=== PATIENT | female | born 1985 | race Caucasian/White ===

== ENCOUNTER → 2021-07-23 11:45 | Outpatient (CLI) | payer OTHER, SELFPAY | PROVIDERS: Visit Provider Student in an Organized Health Care Education/Training Program | DX: Z20.822 Contact with and (suspected) exposure to COVID-19 (principal) | CPT/HCPCS: C9803; U0003; U0005 ==

== ENCOUNTER 2022-08-19 12:24 | Emergency (ER) | payer OTHER, SELFPAY ==
[2022-08-19 13:40] VITALS: BP 149/88; PULSE 88; RESP 20; TEMP 36.8; O2SAT 100; BMI 33.8
--- NOTE | 2022-08-19 13:47 | EXP.UTC ---
Discharge Plan Disposition Patient Disposition: Home, Self-Care Condition: Good Prescriptions Prescriptions: New clindamycin HCl 300 mg capsule 300 mg PO Q8H Qty: 30 0RF Referrals Follow up/Referrals: Provider,Referral, [Primary Care Provider] - See instructions Activity Restrictions/Add. Instructions Additional Instructions/Restrictions: Follow up with your primary care physician if you keep having the feeling when you move your eyes certain ways. This sound like vertigo, but please follow up and make sure it gets better. Take tylenol for pain or fever. Take the medications as directed. Follow up with your regular doctor. GO TO THE ER FOR ANY WORSENING SYMPTOMS Clinical Impressions Clinical Impression: Pharyngitis, Vertigo Stand Alone Forms Stand Alone Forms: Work/School Release Instructions Patient Instructions: DI for Pharyngitis/Tonsillopharyngitis -- Child Discharge ED Provider: Jarvis Montiel [facility] General Stated complaint: Sore throat w/blisters Time Seen by Provider: 08/19/22 13:47 History of Present Illness Provider Complaint: She states that for the past 3 weeks she has been having a weird feeling and hearing a swoosh sound with certain head movements and eye movements. She has had a sore throat for the past 2 days. She had a kidney transplant last November. 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 Related Data Previous Rx's Medication Instructions Recorded clindamycin HCl 300 mg capsule 300 mg PO Q8H #30 caps 08/19/22 Allergies Allergy/AdvReac Type Severity Reaction Status Date / Time Penicillins Allergy Intermediate RED MAN Verified 08/19/22 14:18 SYNDROME vancomycin Allergy Intermediate RED MAN Verified 08/19/22 14:18 SYNDROME sulfamethoxazole Allergy Mild REACTION Verified 08/19/22 14:18 [From Bactrim] OTHER MEDS trimethoprim [From Bactrim] Allergy Mild REACTION Verified 08/19/22 14:18 OTHER MEDS [facility] Disclaimer: The information contained in this section may have been updated after the patient was seen, as this information can be updated by other users. Social History Smoking Status: Never smoker alcohol intake: never current occupational status: employed Travel in the last 8 weeks: None ROS Obtained: Yes All systems reviewed & no additional complaints except as documented Constitutional Constitutional: Reports chills and Reports fever(s) Eyes Eyes: Denies eye discharge ENT Ears, Nose, Mouth, and Throat: Reports as per HPI Cardiovascular Cardiovascular: Denies chest pain Respiratory Respiratory: Denies chest congestion and Reports cough Gastrointestinal Gastrointestingal: Reports nausea; Denies abdominal pain, constipation, cramping, diarrhea or vomiting Musculoskeletal Musculoskeletal: Denies arthralgias Integumentary/Breasts Skin/Breast: Denies rash Neurologic Neurologic: Denies paresthesias Physical Exam General General appearance: alert and in no apparent distress Head Head exam: atraumatic, normocephalic and normal inspection Eye Eye exam: Present normal appearance, PERRL and EOMI ENT ENT exam: Present mucous membranes moist and normal external ear exam Expanded ENT Exam TM/Canal exam: Bilateral TM: erythema and bulging Nose exam: Absent sinus tenderness Mouth exam: Present normal external inspection; Absent drooling Teeth exam: Present normal inspection Throat exam: Present tonsillar erythema, tonsillomegaly and tonsillar exudate Neck Neck exam: Present normal inspection, full ROM and trachea midline; Absent tenderness, meningismus or lymphadenopathy Chest Chest inspection: Present normal inspection and symmetric chest wall rise; Absent tenderness Respiratory Respiratory exam: Present normal lung sounds bilaterally; Absent respiratory distress, wheezes or stridor Cardiovascular Cardiovascular
--- NOTE | 2022-08-19 14:06 | ECG_ITS ---
APPROVED REPORT Exam: Resting ECG HR:88 bpm ECG Measurements Heart Rate 88 AXES ME 156 P 53 QRSd 91 QRS 37 QT 357 T 58 QTc 402 Conclusion SINUS RHYTHM POSSIBLE LEFT ATRIAL ENLARGEMENT [-0.1mV P-WAVE IN V1/V2] BORDERLINE ECG UNCONFIRMED REPORT Electronically signed by : Hossein Frausto MD 08/19/2022 20:17:40
[2022-08-19 14:16] LABS: UTC Strep Screen (Rapid) Negative (Negative)
[2022-08-19 14:45] VITALS: BP 149/98; PULSE 88; RESP 20; TEMP 36.8; O2SAT 100
== END 2022-08-19 14:45 | disposition home or self-care (01) ==
PROVIDERS: Emergency Provider Nurse Practitioner Family
DX: J02.9 Acute pharyngitis, unspecified (principal); R42 Dizziness and giddiness
CPT/HCPCS: 87880; 93005; 99213; G0463

== ENCOUNTER 2025-06-14 15:24 | Outpatient (CLI) | payer OTHER, SELFPAY ==
--- OUTSIDE RECORDS SUMMARY | 2025-05-11 10:40 | XMS_ITS | Encounter Summary ---
Author Organization [facility] Address [address] [place] [address] Care Team Providers Care Recreation Activities Coordinator Name Role Phone Terry Ag MD Unavailable Lee Ellis MD Unavailable [phone] Cici Wiley Unavailable Unavailable Aleksandra Mensah RN Unavailable Unavailable Reason for Visit * Reason Comments Diabetes * Consultation (Routine) - Closed Specialty Diagnoses / Procedures Referred By Contkarmen t Referred To Contact Diagnoses Type 2 diabetes mellitus with hyperglycemia, with long-term current use of insulin Preeti Gomez MD [address] [address] Phone: tel: fax: Referral ID Status Reason Start Date Expiration Date Visits Re quested Visits Authorized [id number] Closed 01/16/2025 07/18/2026 1 1 Encounter Details Date Type Department Care Team (Late st Contact Info) Description 05/11/2025 11:40 AM EDT Office Visit [facility] [address] [place] [id number] Preeti Gomez MD [address] [address] Type 2 diabetes mellitus with hyperglycemia, with long-term current use of insulin (Primary Dx) Social History Tobacco Use Types Packs/Day Years Used Date Smoking Tobacco: Never Passive Smoke Exposure: Never Smokeless Tobacco: Never Alcohol Use Standard Drinks/Week Comments Never 0 (1 standard drink = 0.6 oz pur e alcohol) Alcoholic Drinks/day: Alcohol Humiliation, Afraid, Rape, and Kick questionnair e Answer Date Recorded Within the last year, have y ou been afraid of your partner or ex-partner? No 09/15/2024 Within the last year, have y ou been humiliated or emotionally abused in other ways by your partner or ex-partner? No Within the last year, have y ou been kicked, hit, slapped, or otherwise physically hurt by your partner or ex-partner? No 09/15/2024 Within the last year, have y ou been raped or forced to have any kind of sexual activity by your partner or ex-partner? No 09/15/2024 Social Connection and Isolation Panel Answer Date Recorded In a typical week, how many times do you talk on the phone with family, friends, or neighbors? Three times a week 09/16/19 How often do you get togethe r with friends or relatives? Twice a week 09/15/2024 How often do you attend chur or episcopalian services? Never 09/15/2024 Do you belong to any clubs o r organizations such as episcopalian groups, unions, fraternal or athletic groups, or school groups? No 09/15/2024 How often do you attend meet ings of the clubs or organizations you belong to? Never 09/15/2024 Are you , , di vorced, , never , or living with a partner? Living with partner 09/15/2024 AUDIT-C Answer Date Recorded Q1: How often do you have a drink containing alcohol? Never 09/15/2024 Q2: How many drinks containi ng alcohol do you have on a typical day when you are drinking? Patient does not drink Q3: How often do you have si x or more drinks on one occasion? Never 09/15/2024 Overall Financial Resource Strain (CARDIA) Answe r Date Recorded How hard is it for you to pa y for the very basics like food, housing, medical care, and heating? Not hard at all 09/15/2024 PHQ-2 Answer Date Recorded Patient Health Questionnaire-2 Score 0 10/05/2024 [facility] - Occupational Stress Questionnaire Answer Date Recorded Do you feel stress - tense, restless, nervous, or anxious, or unable to sleep at night because your mind is troubled all the time - these days? Only a little 09/15/2024 Exercise Vital Sign Answer Date Recorde d On average, how many days pe r week do you engage in moderate to strenuous exercise (like a brisk walk)? 3 days 09/15/2024 On average, how many minutes do you engage in exercise at this level? 40 min 09/15/2024 Hunger Vital Sign Answer Date Recorded Within the past 12 months, y ou worried that your food would run out before you got the money to buy more. Never true 09/16/19 25 Within the past 12 months, t he food you bought just didn't last and you didn't have money to get more. Never true 09/15/2024 PRAPARE - Transportation Answer Date Re corded In the past 12 months, has l ack of transportation kept you from medical appointments or from getting medications? No 12/2024 In the past 12 months, has l ack of transportation kept you from meetings, work, or from getting things needed for daily living? No 09/15/2024 Housing Stability Vital Sign Answer Feliciano e Recorded In the last 12 months, was t here a time when you were not able to pay the mortgage or rent on time? No 04/14/2024 In the last 12 months, how many places have you lived? 1 04/14/2024 In the last 12 months, was t here a time when you did not have a steady place to sleep or slept in a fdc (including now)? No 04/14/2024 [place] Depression Scale Answer Date Recorded [place] Depression Scale Total 0 11/03/2024 The thought of harming myself has occurred to me . Never 11/03/2024 PHQ-9 Answer Date Recorded Patient Health Questionnaire-9 Score 0 09/15/2024 Housing Stability Vital Sign Answer Feliciano e Recorded In the last 12 months, was t here a time when you were not able to pay the mortgage or rent on time? No 09/15/2024 In the past 12 months, how m any times have you moved where you were living? 0 09/15/2024 At any time in the past 12 m [facility], were you homeless or living in a fdc (including now)? No 09/15/2024 Utilities Answer Date Recorded In the past 12 months has th e electric, gas, oil, or water company threatened to shut off services in your home? No 09/15/2024 Education Answer Date Recorded What is the highest level of school you have completed or the highest degree you have received? Some college, no degree 04/14/2024 Comments No Sex and Gender Information Value Date Recorded Sex Assigned at Female 07/25/2021 7:30 AM EST Legal Sex Female 7:46 PM EDT Gender Identity Female 07/25/2021 7:30 AM EST Sexual Orientation Not on file documented as of this encounter Last Filed Vital Signs Vital Sign Reading Time Taken Comments Blood Pressure 124/84 05/11/2025 11:21 AM EDT Pulse 80 05/11/2025 11:21 AM EDT Temperature - - Respiratory Rate - - Oxygen Saturation - - Inhaled Oxygen Concentration - - Weight 90.9 kg (200 lb 6.4 oz) 05/11/2025 11:21 AM EDT Height 157.5 cm (5' 2 ) 05/11/2025 11:21 AM EDT Body Mass Index 36.65 05/11/2025 11:21 AM EDT documented in this encounter Miscellaneous Notes * Progress Notes - Jessica Carrasco MBBS - 05/11/2025 11:40 AM EDT Images from the original note were not included. Chief complaint: T2DM f/u HPI Guerline Merchant is a 37 yo woman with PMH of HTN, T2DM, ESRD s/p kidney transplant 11/2021 (now on tacrolimus, mycophenolate, previously on prednisone) and anxiety who presents today for follow up of her T2DM. Patient was last seen in the clinic on 01/16/25. T2DM A1c today is 6.6 (from 5.7 on 01/2025) Current regimen: Lantus 20 units BID- reports occasional lows after midnight Lispro 18-22 units before meals CGM: Dexcom Compliance- good Hypoglycemic episodes- significantly improved since last time. She does have compression lows overnight . Her BG is normal when she cross checks with fingerstick. Complications: Has hx of kidney transplant; Denies neuropathy, retinopathy Eye exam: UTD , reports no diabetic retinopathy ROS- negative except for as mentioned above. Past Medical History: Diagnosis Date Abnormal Pap smear of cervix End stage renal disease Essential (primary) hypertension Hypertension Kidney disease Kidney transplant recipient 2006 2021 Methicillin resistant Staphylococcus aureus infection, unspecified site MRSA (methicillin resistant Staphylococcus aureus) Personal history of other diseases of the digestive system History of gastroesophageal reflux (GERD) Personal history of other mental and behavioral disorders History of anxiety Personal history of urinary (tract) infections History of kidney infection Polyneuropathy, unspecified Neuropathy Recurrent and persistent hematuria with other morphologic changes IgA nephropathy Spontaneous 2023 Type 2 diabetes mellitus 2023 Past Surgical History: Procedure Laterality Date ANKLE SURGERY N/A 2013 Ankle surgery from [facility] APPENDECTOMY N/A 2013 Appendectomy from [facility] AV FISTULA PLACEMENT Left 2017 AV fistula placement from [facility] SECTION, LOW TRANSVERSE N/A 2010 section from [facility] CT GUIDED ASP RENAL CYST HISTORICAL Right 2019 DIALYSIS FISTULA CREATION Left 08/13/2018 Dr. Ellis NEPHRECTOMY 05/22/2020 Dr. Terry Ag - Transplant Nephrectomy NOSE SURGERY N/A 2009 Nose Surgery from [facility] PERIPHERALLY INSERTED CENTRAL CATHETER INSERTION N/A Central Iv Line Type Picc from [facility] SINUS SURGERY N/A 2010 Sinus surgery from [facility] TRANSPLANTATION RENAL Right 2006 Renal transplant from [facility] TRANSPLANTATION RENAL Left 11/2021 Renal Transplant from [facility] Family History Problem Relation Name Age of Onset Endometriosis Mother Hypertension Mother Migraines Mother Hyperlipidemia Mother Thyroid disease Mother Autoimmune disease Sister Hearing loss Sister Endometriosis Sister Diabetes Brother Hypertension Brother Deafness Brother Diabetes Maternal Grandmother Hypertension Maternal Grandmother Objective: Visit Vitals BP 124/84 Pulse 80 Ht 1.575 m (5' 2 ) Wt 90.9 kg (200 lb 6.4 oz) BMI 36.65 kg/m?? OB Status Having periods Smoking Status Never BSA 1.99 m?? Physical Exam Vitals reviewed. Constitutional: General: She is not in acute distress. Appearance: She is not ill-appearing, toxic-appearing or diaphoretic. HENT: Head: Normocephalic and atraumatic. Mouth/Throat: Mouth: Mucous membranes are moist. Cardiovascular: Rate and Rhythm: Normal rate and regular rhythm. Heart sounds: Normal heart sounds. Pulmonary: Effort: Pulmonary effort is normal. No respiratory distress. Breath sounds: Normal breath sounds. Abdominal: Palpations: Abdomen is soft. Musculoskeletal: Right lower leg: No edema. Left lower leg: No edema. Skin: General: Skin is warm and dry. Coloration: Skin is not jaundiced or pale. Neurological: Mental Status: She is alert. Psychiatric: Mood and Affect: Mood normal. Behavior: Behavior normal. Recent Labs: Lab Results Component Value Date HGBA1C 6.6 05/11/2025 Lab Results Component Value Date GLUCOSE 124 (H) 02/23/2024 CALCIUM 9.4 02/23/2024 NA 138 02/23/2024 K 4.2 02/23/2024 CO2 26 02/23/2024 CL 102 02/23/2024 BUN 14 02/23/2024 CREATININE 0.96 02/23/2024 Lab Results Component Value Date CHOL 156 12/23/2018 CHOL 217 07/08/2018 CHOL 191 04/26/2018 Lab Results Component Value Date HDL 24 12/23/2018 HDL 27 07/08/2018 HDL 26 04/26/2018 Lab Results Component Value Date LDLCALC 76 12/23/2018 LDLCALC Not calculated when TRIG. >400 mg/dL 07/08/2018 LDLCALC 107 04/26/2018 Lab Results Component Value Date TRIG 278 12/23/2018 TRIG 501 07/08/2018 TRIG 291 04/26/2018 Lab Results Component Value Date CRATIO 12/23/2018 6.5 Total Cholesterol/HDL Ratio Reference Range: Desirable: <5.0 Borderline high: 5.0 to 6.0 High: >6.0 [facility] 07/08/2018 8.0 Total Cholesterol/HDL Ratio Reference Range: Desirable: <5.0 Borderline high: 5.0 to 6.0 High: >6.0 [facility] 04/26/2018 7.3 Total Cholesterol/HDL Ratio Reference Range: Desirable: <5.0 Borderline high: 5.0 to 6.0 High: >6.0 Lab Results Component Value Date MICROALBUR 1.61 02/23/2024 CGM review and assessment: Interpretation: Numbers within goal. Assessment and Plan T2DM controlled - A1c today 6.6 - at goal - posttransplantation hyperglycemia, on/off prednisone therapy (today reports off for about 2 years) - Current regimen: Lantus 20 units qAM & 20 units qPM + Lispro 18-22 with meals. -no further true lows. Experiencing compression lows overnight. PLAN: - Regimen: c/w Lantus to 20 units bid . Continue mealtime lispro 18-22 units with meals. -discussed taking the meal time insulin atleast 10-15 mins prior to eating to avoid post prandial lows. - Pt continues to use CGM to test BG 4+ times daily and uses CGM to adjust insulin doses. - Annual DM labs are UTD except lipid panel which she will get it done along with her transplant labs next month. - UTD eye exam as of December 2024. HTN - BP 124/84 today, at goal -PLAN: - Continue labetalol; will follow with transplant doctors Kidney transplantation 12/01 - Continues daily immunosuppressants (including prednisone) - Follows with Dr. Sebastian PLAN: - Continue to follow with nephrology and transplant clinic RTC in 3 months Jessica Carrasco, PGY-4 Division of Endocrinology, Diabetes and Metabolism [facility] Cosigned by Preeti Gomez MD at 05/12/2025 5:47 PM EDT Associated attestation - Preeti Gomez MD - 05/12/2025 5:47 PM EDT I saw and evaluated the patient. I discussed the case with the resident/fellow and agree with the findings and plan as documented. documented in this encounter Plan of Treatment Upcoming Encounters Date Type Department Care Team (Late st Contact Info) Description 09/14/2025 12:20 PM EST Office Visit [facility] [address] [place] [address] Preeti Gomez MD [address] [facility] [address] [place] [address] documented as of this encounter Procedures Procedure Name Priority Date/Time Associated Diagnosis Comments POCT GLYCOSYLATED HEMOGLOBIN (HGB A1C) Routine 05/11/2025 11:39 AM EDT Type 2 diabetes mellitus with hyperglycemia, with long-term current use of insulin documented in this encounter Results * (ABNORMAL) POCT glycosylated hemoglobin (Hb A1C) (05/11/2025 11:39 AM EDT) POCT Hemoglobin A1C 6.6 <5.7% Non-Diabet ic % [facility] Kit Lot Number [id number] [facility] Kit Expiration Date 03/08 [facility] Blood Venous blood specimen / Unknown 05/11/2025 11:39 AM EDT Preeti Gomez MD POINT OF CARE TEST ENTER/EDIT ORDERABLES Final Result [facility] [address] [place] [address] documented in this encounter Visit Diagnoses Diagnosis Type 2 diabetes mellitus with hyperglycemia, with long-term current use of insulin- Primary documented in this encounter Additional Health Concerns Infection Onset Date Last Indicated Resolved Time 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 Assessment Noted Time PHQ-9 Depression Total Score: 0 09/16/19 25 1:23 PM EST A fall risk assessment has been complete d for the patient 08/24/2024 1:09 PM EST A Body Mass Index follow-up plan has been documented for the patient 05/12/2025 5:47 PM EDT documented as of this encounter Care Teams Recreation Activities Coordinator Relationship Specialty Start Date End Date Terry Ag MD [address] [place] [address] Transplant Physician Transplant Surgery 12/02/20 Lee Ellis MD [address] [place] [phone] Transplant Physician Transplant Surgery 12/02/20 Cici Wiley [id number] Surgical Navigator Transplant 12/02/20 Aleksandra Mensah RN [facility] [address] [place] [id number] Surgical Navigator Transplant Surgery 02/15/21 documented as of this encounter
--- OUTSIDE RECORDS SUMMARY | 2025-05-15 10:32 | XMS_ITS | Encounter Summary ---
Author Organization [facility] Address [address] [place] [address] Care Team Providers Care Textile Broker Name Role Phone Terry Ag MD Unavailable Lee Ellis MD Unavailable [phone] Cici Wiley Unavailable Unavailable Aleksandra Mensah RN Unavailable Unavailable Reason for Referral * Imaging (Routine) - Closed Specialty Diagnoses / Procedures Referred By Ahmet iglesias Referred To Contact Radiology Diagnoses ESRD on hemodialysis (CMS/HCC) Procedures IR Angiogram ArterioVenous Shunt Wayne Steven MD [address] [place] [address] Phone: tel: fax: Referral ID Status Reason Start Date Expiration Date Visits Re quested Visits Authorized [id number] Closed 02/07/2025 08/09/2026 1 1 Reason for Visit * Imaging (Routine) - Closed Specialty Diagnoses / Procedures Referred By Ahmet iglesias Referred To Contact Radiology Diagnoses ESRD on hemodialysis ([facility]/HCC) Procedures IR Angiogram ArterioVenous Shunt Wayne Steven MD [address] [place] [address] Phone: tel: fax: Referral ID Status Reason Start Date Expiration Date Visits Re quested Visits Authorized [id number] Closed 02/07/2025 08/09/2026 1 1 Encounter Details Date Type Department Care Team (Late st Contact Info) Description 05/15/2025 10:32 AM EST - 05/15/2025 11:59 PM [facility] Hospital Encounter PAV A Interventional Radiology [address] [place] [address] Loreto Pemberton, RN CH-VASCULAR & INTERVENTIONAL RADIOLOGY None ESRD on hemodialysis (CMS/HCC) Discharge Disposition: Home or Self Care Social History Tobacco Use Types Packs/Day Years [...] week 09/15/2024 How often do you attend [facility] or adventism services? Never 09/15/2024 Do you belong to any clubs o r organizations such as quaker groups, unions, fraternal or athletic groups, or [...] Recorded Patient Health Questionnaire-2 Score 0 10/05/2024 [facility] - Occupational Stress Questionnaire Answer Date Recorded [...] place to sleep or slept in a skilled nursing (including now)? No 04/14/2024 [place] Depression Scale Answer Date Recorded [place] Depression Scale Total 0 11/03/2024 The thought [...] any time in the past 12 m [facility], were you homeless or living in a skilled nursing (including now)? No 09/15/2024 Utilities Answer Date [...] Sign Reading Time Taken Comments Blood Pressure 131/65 05/15/2025 2:00 PM EST Pulse 83 05/15/2025 2:15 PM EST Temperature 36.3 C (97.3 F) 05/15/2025 1:07 PM EST Respiratory Rate 24 05/15/2025 2:15 PM EST Oxygen Saturation 96% 05/15/2025 2:15 PM EST Inhaled Oxygen Concentration - - Weight 91.9 kg (202 lb 9.6 oz) 05/15/2025 10:45 AM EST Height 154.9 cm (5' 1 ) 05/15/2025 10:45 AM EST Body Mass Index 38.28 05/15/2025 10:45 AM EST documented in this encounter Functional Status * Calculated C-SSRS Risk Score (Lifetime/Recent) Answer Date of Assessment Author No Risk Indicated 05/15/2025 10:45 AM EST Loreto Cabrales RN * Question Answer Date of Assessment Author 1. Wish to be (Past 1 Month) No 05/15/2025 10:45 AM EST Loreto Pemberton RN 2. Non-Specific Active Suici odell Thoughts (Past 1 Month) No 05/15/2025 10:45 AM EST Addi Pemberton RN 6. Suicidal Behavior (Lifetime) No 5 10:45 AM EST Loreto Pemberton RN documented as of this encounter Discharge Instructions * Discharge Instructions* Loreto Pemberton RN - 05/15/2025 2:10 PM EST *Interventional Radiology* (IR) Questions/Concerns & Appointments: If there are questions or concerns after discharge please call: [facility] Inter[facility]iology Clinic at [phone] Thursday - Thursday 8:00 AM to 4:30 PM After hours, weekends, and holidays please call [phone] and ask for the Interventional Radiology provider/Resident on-call Intervention Radiology Appointments: If you need to reschedule a procedure, please call our Schedulers at [phone], option [phone]. If you need to schedule or reschedule a clinic appointment, please call [phone]. [facility] Vascular and Interventional Radiology Clinic [address], [address] [place] [id number] documented in this encounter Medications at Time of Discharge acetaminophen (Tylenol Extra Strength) 500 MG tablet Take both tablets by mouth about one hour prior to your procedure. 2 tablet 5 acetone, urine, test strip 1 strip if needed for high blood sugar. 25 each 4 ALBUTEROL IN Inhale 1-2 puffs if needed. azaTHIOprine (Imuran) 100 MG tablet Take 1 tablet by mouth daily. 3 Continuous Glucose Sensor (Dexcom G7 Sensor) miscIndications:Typ e 2 diabetes mellitus with hyperglycemia, with long-term current use of insulin 1 each every 10 (ten) days. 9 each 3 4 doxycycline (Vibramycin) 100 MG capsuleIndications: Need for antibiotic prophylaxis for surgical procedure Bring this medication to your appointment, do not take it until you have spoken to your doctor. 2 capsule 5 glucose (Trueplus Glucose) 4 g chewable tablet Chew 4 tablets (16 g) if needed for low blood sugar. 50 tablet 12 4 Glucose Blood (Blood Glucose Test) strip Use as back up to CGM as needed. Use to check BG levels 3 times a day. 300 strip 5 4 insulin lispro (Admelog, HumaLOG) 100 UNIT/ML injection penIndications:Type 2 diabetes mellitus with hyperglycemia, with long-term current use of insulin Inject 15-17 units before each meal 3 times per day MDD 60 30 mL 3 5 Insulin Pen Needle (ReliOn Pen Nakina) 32G X 4 MM misc USE 4 TIMES DAILY DIRECTED TO INJECT INSULIN 300 each 5 labetalol (Normodyne) 100 MG tablet Take 1 tablet by mouth twice daily 180 tablet 5 Lancets misc Use to check blood sugar 3 times daily 300 each 3 4 LORazepam (Ativan) 0.5 MG tablet Bring this medication with you to your appointment. Do not take them until you have spoken with the doctor that day. 2 tablet 5 Magnesium Cl-Calcium Carbonate 71.5-119 MG tablet delayed-release Take 142 mg by mouth 1 (one) time each day. 4 miSOPROStol (Cytotec) 200 MCG tablet 1 tablet. omeprazole (PriLOSEC) [address] capsule Take 1 capsule (40 mg) by mouth daily. 0 ondansetron (Zofran) 4 MG tablet Take one tablet about an hour before the procedure. 2 tablet 5 ondansetron ODT (Zofran-ODT) 4 MG disintegrating tablet Take 1 tablet (4 mg) by mouth every 8 (eight) hours if needed for nausea or vomiting. 10 tablet 4 oxyCODONE (Roxicodone) 5 MG immediate release tablet Please bring this medication to your appointment, do not take until you have spoken with your doctor that day. 1 tablet 5 Iaydlzdf-Crk-Yo-FA ( 1 + IRON PO) Take by mouth. tacrolimus (Prograf) 1 MG capsule Take 3 capsules by mouth 2 times a day. 2 insulin glargine (Lantus SoloStar) 100 UNIT/ML injection penIndications:Type 2 diabetes mellitus with hyperglycemia, with long-term current use of insulin INJECT 15 UNITS SUBCUTANEOUSLY TWICE DAILY 15 mL 1 5 05/31/20 25 insulin glargine-yfgn 100 UNIT/ML injection pen INJECT 10 UNITS SUBCUTANEOUSLY IN THE MORNING AND 30 IN THE EVENING . APPOINTMENT REQUIRED FOR FUTURE REFILLS 5 05/31/20 25 documented as of this encounter Miscellaneous Notes * Progress Notes - Loreto Pemberton RN - 05/15/2025 2:31 PM EST Written discharge instructions reviewed with pt and family. Opportunity provided for family and pt to ask and have questions answered to their understanding. VU of plan of home care and in agreement. VSS, NAD noted, VU of care after discharge and denies questions or concerns. Discharged to private vehicle ambulatory; accompanied by RN x 1; all personal belongings with pt, bay void of any patient belongings upon exit. Loreto Pemberton RN 05/15/2025 2:31 PM * Nan Young - Loreto Pemberton RN - 05/15/2025 2:10 PM EST Images from the original note were not included. [id number] Fistulogram and Angioplasty of Your AV Fistula A fistulogram is a type of X-ray. It uses X-ray dye (contrast) to look inside your arteriovenous (AV) fistula vascular access for hemodialysis. It?s done to check the blood flow and look for any narrowing (stenosis) in the vein of your fistula. If a narrowing is found, then an angioplasty can be done at the same time. This procedure makes the vein wider using a small, inflatable balloon. Fistulogram and angioplasty are both outpatient procedures. This means you?ll go home the same day. Why is a fistula and angioplasty done? This procedure may be advised if you have any signs that your AV fistula isn?t working well due to a narrowed blood vessel. This can include: ? Reduced blood flow. ? Little or no bruit, the sound of blood flowing in your AV fistula. ? Changes in the thrill, the pulse at the fistula site. ? The arm with the fistula gets swollen. ? Bleeding from your access after your dialysis session. ? During dialysis sessions, the dialysis machine alarms go off because of access flow issues. Before the procedure ? Follow any directions you?re given for not eating or drinking before the procedure. ? Tell your doctor about all of the medicines you take. This includes prescription and uukx-eyo-tlaghis medicines, vitamins, minerals, and supplements. ? Tell the doctor if you have allergies to any medicines or to X-ray dye. ? Tell the doctor if you?re or think you may be . ? Arrange for someone to drive you home after the procedure. During the procedure In general, here?s what you can expect during a fistulogram and angioplasty: 1. You?ll lie down on an X-ray table. 2. You may be given medicine to relax you (sedatives) in the arm opposite your fistula. 3. The doctor injects some medicine (local anesthesia) into the fistula arm to numb the area. 4. The doctor inserts a long, thin tube (catheter) into your access. 5. Contrast dye is added to the catheter while X-ray images are taken. The X-ray images let the doctor see how the dye flows. They can see if there?s any narrowing. 6. If there?s no narrowing, then the catheter is removed. Pressure is applied to the insertion siteuntil any bleeding stops. If an angioplasty is needed: 1. If a blood vessel is narrowed, an angioplasty will be done at the same time. 2. Using a thin guide wire, the provider inserts a small, inflatable balloon into the catheter. 3. The doctor inflates the balloon into the narrow part of the blood vessel. This makes the vessel wider so that more blood can flow through. You may feel some mild discomfort. 4. When the procedure is done, both the wire and balloon are removed. 5. The doctor injects contrast dye into the catheter to check that blood flow is improved. 6. The catheter is removed. 7. Pressure is applied to the insertion site until any bleeding stops. 8. You may have 1 or 2 stitches at the insertion site. These will be removed at your next dialysis session. After the procedure ? You?ll be moved to a recovery area. Your heart rate, blood pressure, and fistula will be checked. ? If no angioplasty was done, you?ll go home right away. ? If you had an angioplasty, you?ll stay and be watched for a few hours. ? Make sure someone is available to drive you home. ? Once you are home, relax for the rest of the day. ? Don?t lift anything heavy or do any strenuous activities for 24 hours. ? Drink fluids to help flush the X-ray dye from your body. ? Follow any other directions from your doctor. Risks of fistulogram and angioplasty All procedures have some risk. Possible risks of fistulogram and angioplasty are: ? A blood vessel that ruptures. ? A blood vessel that spasms. ? Bleeding or infection at the insertion site. ? Problems because of X-ray dye, such as an allergic reaction. ? The blood vessel becomes narrowed again. When to contact your doctor Contact your doctor if any of these occur after the procedure: ? You have signs of infection, such as redness, swelling, warmth, or fluid leaking from the insertion site. ? You can?t feel your thrill (the pulse at the fistula site). ? Your thrill feels very weak. Last Reviewed Date: 2024 00:00:00 ?? [id number] [employer]. All rights reserved. This information is not intended as a substitute for professional medical care. Always follow your healthcare professional's instructions. * Post-Procedure Note - Wayne Steven MD - 05/15/2025 12:00 PM EST Vascular and Interventional Radiology Brief Postprocedure Note Attending: Maurizio DU Enrichment Director: none Pre-operative Diagnosis: central stenosis, AV fistula. Post-operative Diagnosis: unchanged,. Type of Anesthesia: Conscious Sedation Description of Findings: see PACS Technical/Surgical Procedures Used: see PACS Specimen Obtained: No Complications: None Estimated Blood Loss: none Procedure Events Event Event Time Sedation Start 05/15/2025 12:19 PM Sedation Stop 05/15/2025 12:40 PM See detailed result report with images in PACS. The patient tolerated the procedure well without incident or complication and is in stable condition. * Pre-Procedure Note - Ayden VegasDO - 05/15/2025 12:00 PM EST Images from the original note were not included. INTERVENTIONAL RADIOLOGY SEDATION PRE-PROCEDURAL ASSESSMENT AND PLAN OF CARE Indication for procedure: The encounter diagnosis was ESRD on hemodialysis (CMS/[facility]ER[facility]). Planned Procedure: LUE AV fistulogram with possible intervention Relevant past medical history: None Previous problems with surgery, anesthesia or sedation: No Previous family history or problems with anesthesia or sedation: No History of tobacco use, alcohol use, or substance abuse: Tobacco Use History[1], Social History Substance and Sexual Activity Alcohol Use Never Comment: Alcoholic Drinks/day: Alcohol , Social History Substance and Sexual Activity Drug Use Never Comment: Drug use: Does not use illicit drugs Height and Weight: There were no vitals taken for this visit. Allergies to medication: Mycophenolate, Penicillins, Sulfamethoxazole- trimethoprim, and Vancomycin Current medications: Current Medications[2] Relevant Labs: Lab Results Component Value Date CREATININE 0.96 02/23/2024 EGFR 77.8 02/23/2024 INR 1.0 09/29/2024 PREGTESTUR Positive (A) 04/14/2024 Planned Sedation/Anesthesia: Moderate Airway assessment: normal Mallampati Score: II (hard and soft palate, upper portion of tonsils anduvula visible) ASA: ASA 2 - Patient with mild systemic disease with no functional limitations Directed physical examination: There were no vitals filed for this visit. General: resting comfortably, in no apparent distress HEENT: normocephalic, atraumatic, PERRL, conjunctiva clear, oropharynx unremarkable Cardiovascular: regular rate and rhythm. Respiratory: without signs of respiratory distress. Abdomen: soft, nontender, nondistended, without masses. Extremities: no gross deformities, intact range of motion, without cyanosis or edema. LUE brachiocephalic fistula with palpable thrill and mild bounding pulsation. Neuro: normal reactivity for age. Benefits, risks and alternatives of procedure and planned sedation have been discussed with the patient and/or their warehouse representative. All questions answered and they agree to proceed. [1] Social History Tobacco Use Smoking Status Never Passive exposure: Never Smokeless Tobacco Never [2] Current Outpatient Medications Medication Sig Dispense Refill acetaminophen (Tylenol Extra Strength) 500 MG tablet Take both tablets by mouth about one hour prior to your procedure. 2 tablet 0 acetone, urine, test strip 1 strip if needed for high blood sugar. 25 each 0 ALBUTEROL IN Inhale 1-2 puffs if needed. azaTHIOprine (Imuran) 100 MG tablet Take 1 tablet (100 mg) by mouth daily. Continuous Glucose Sensor ([employer] G7 Sensor) misc 1 each every 10 (ten) days. 9 each 3 doxycycline (Vibramycin) 100 MG capsule Bring this medication to your appointment, do not take it until you have spoken to your doctor. 2 capsule 0 glucose (Trueplus Glucose) 4 g chewable tablet Chew 4 tablets (16 g) if needed for low blood sugar.50 tablet 12 Glucose Blood (Blood Glucose Test) strip Use as back up to CGM as needed. Use to check BG levels 3 times a day. 300 strip 5 insulin glargine (Lantus SoloStar) 100 UNIT/ML injection pen INJECT 15 UNITS SUBCUTANEOUSLY TWICE DAILY 15 mL 1 insulin glargine-yfgn 100 UNIT/ML injection pen INJECT 10 UNITS SUBCUTANEOUSLY IN THE MORNING AND 30 IN THE EVENING . APPOINTMENT REQUIRED FOR FUTURE REFILLS insulin lispro (Admelog, HumaLOG) 100 UNIT/ML injection pen Inject 15-17 units before each meal 3 times per day MDD 60 30 mL 3 Insulin Pen Needle (ReliOn Pen Nakina) 32G X 4 MM misc USE 4 TIMES DAILY DIRECTED TO INJECT INSULIN 300 each 0 labetalol (Normodyne) 100 MG tablet Take 1 tablet by mouth twice daily 180 tablet 0 Lancets misc Use to check blood sugar 3 times daily 300 each 3 LORazepam (Ativan) 0.5 MG tablet Bring this medication with you to your appointment. Do not take them until you have spoken with the doctor that day. 2 tablet 0 Magnesium Cl-Calcium Carbonate 71.5-119 MG tablet delayed-release Take 142 mg by mouth 1 (one) timeeach day. miSOPROStol (Cytotec) 200 MCG tablet 1 tablet. (Patient not taking: Reported on 05/11/2025) omeprazole (PriLOSEC) [address] capsule Take 1 capsule (40 mg) by mouth daily. ondansetron (Zofran) 4 MG tablet Take one tablet about an hour before the procedure. (Patient not taking: Reported on 05/11/2025) 2 tablet 0 ondansetron ODT (Zofran-ODT) 4 MG disintegrating tablet Take 1 tablet (4 mg) by mouth every 8 (eight) hours if needed for nausea or vomiting. (Patient not taking: Reported on 05/11/2025) 10 tablet 0 oxyCODONE (Roxicodone) 5 MG immediate release tablet Please bring this medication to your appointment, do not take until you have spoken with your doctor that day. (Patient not taking: Reported on 05/11/2025) 1 tablet 0 PARoxetine (Paxil) 20 MG tablet Take 1 tablet (20 mg total) by mouth 1 (one) time each day. as directed 30 tablet 11 Javgtjon-Sxk-Ag-FA ( 1 + IRON PO) Take by mouth. (Patient not taking: Reported on 05/11/2025) tacrolimus (Prograf) 1 MG capsule Take 3 capsules (3 mg) by mouth 2 (two) times a day. Current Facility-Administered Medications Medication Dose Route Frequency Provider Last Rate Last Admin sodium chloride 0.9 % flush 10 mL 10 mL Intravenous q12h Ayden Vegas DO And sodium chloride 0.9 % flush 10 mL 10 mL Intravenous PRN Ayden Vegas DO * H&P - Ayden Vegas DO - 05/15/2025 12:00 PM EST Images from the original note were not included. Subjective Chief complaint LUE central venous stenosis History Of Present Illness Guerline Merchant is a 40 y.o. female presenting for LUE brachiocephalic AV fistulogram with possible angioplasty/intervention. She has a PMHx of HTN, anxiety, left upper extremity brachiocephalic AV fistula (August 2018), ESRD s/p DDKT (November 2021). Pt presented 10/17 for LUE swelling which had central venous stenosis s/p av fistulogram w/ ballon angioplastyx2 (10/2024 and 01/2025). Medical/Surgical/Social/Family History I have reviewed and updated the patient history. Travel History Relevant International Travel History: Travel Screening Question Response Have you been in contact with someone who was sick? No / Unsure Do you have any of the following new or worsening symptoms? None of these Have you traveled internationally or domestically in the last month? No Travel History Travel since 04/14/25 No documented travel since 04/14/25 Relevant Domestic Travel History: N/A Immunizations Not reviewed Allergies Mycophenolate, Penicillins, Sulfamethoxazole-trimethoprim, and Vancomycin Medications Current Medications[1] Objective Review of Systems A complete ROS was obtained. All were negative except as noted in HPI. Physical Exam General: resting comfortably, in no apparent distress HEENT: normocephalic, atraumatic, PERRL, conjunctiva clear, oropharynx unremarkable Cardiovascular: regular rate and rhythm. Respiratory: without signs of respiratory distress. Abdomen: soft, nontender, nondistended, without masses. Extremities: no gross deformities, intact range of motion, without cyanosis or edema. LUE brachiocephalic fistula with palpable thrill and mild bounding pulsation. Neuro: normal reactivity for age. Last Recorded Vitals unknown if currently . Results Review I have reviewed the latest lab and imaging results. Assessment & Plan ESRD on hemodialysis ([facility]) 40F presenting for LUE brachiocephalic AV fistulogram with possible intervention. Consent obtained.Okay to proceed as planned [1] Current Outpatient Medications Medication Sig Dispense Refill acetaminophen (Tylenol Extra Strength) 500 MG tablet Take both tablets by mouth about one hour prior to your procedure. 2 tablet 0 acetone, urine, test strip 1 strip if needed for high blood sugar. 25 each 0 ALBUTEROL IN Inhale 1-2 puffs if needed. azaTHIOprine (Imuran) 100 MG tablet Take 1 tablet (100 mg) by mouth daily. Continuous Glucose Sensor ([employer] G7 Sensor) misc 1 each every 10 (ten) days. 9 each 3 doxycycline (Vibramycin) 100 MG capsule Bring this medication to your appointment, do not take it until you have spoken to your doctor. 2 capsule 0 glucose (Trueplus Glucose) 4 g chewable tablet Chew 4 tablets (16 g) if needed for low blood sugar.50 tablet 12 Glucose Blood (Blood Glucose Test) strip Use as back up to CGM as needed. Use to check BG levels 3 times a day. 300 strip 5 insulin glargine (Lantus SoloStar) 100 UNIT/ML injection pen INJECT 15 UNITS SUBCUTANEOUSLY TWICE DAILY 15 mL 1 insulin glargine-yfgn 100 UNIT/ML injection pen INJECT 10 UNITS SUBCUTANEOUSLY IN THE MORNING AND 30 IN THE EVENING . APPOINTMENT REQUIRED FOR FUTURE REFILLS insulin lispro (Admelog, HumaLOG) 100 UNIT/ML injection pen Inject 15-17 units before each meal 3 times per day MDD 60 30 mL 3 Insulin Pen Needle (ReliOn Pen Nakina) 32G X 4 MM misc USE 4 TIMES DAILY DIRECTED TO INJECT INSULIN 300 each 0 labetalol (Normodyne) 100 MG tablet Take 1 tablet by mouth twice daily 180 tablet 0 Lancets misc Use to check blood sugar 3 times daily 300 each 3 LORazepam (Ativan) 0.5 MG tablet Bring this medication with you to your appointment. Do not take them until you have spoken with the doctor that day. 2 tablet 0 Magnesium Cl-Calcium Carbonate 71.5-119 MG tablet delayed-release Take 142 mg by mouth 1 (one) timeeach day. miSOPROStol (Cytotec) 200 MCG tablet 1 tablet. (Patient not taking: Reported on 05/11/2025) omeprazole (PriLOSEC) [address] capsule Take 1 capsule (40 mg) by mouth daily. ondansetron (Zofran) 4 MG tablet Take one tablet about an hour before the procedure. (Patient not taking: Reported on 05/11/2025) 2 tablet 0 ondansetron ODT (Zofran-ODT) 4 MG disintegrating tablet Take 1 tablet (4 mg) by mouth every 8 (eight) hours if needed for nausea or vomiting. (Patient not taking: Reported on 05/11/2025) 10 tablet 0 oxyCODONE (Roxicodone) 5 MG immediate release tablet Please bring this medication to your appointment, do not take until you have spoken with your doctor that day. (Patient not taking: Reported on 05/11/2025) 1 tablet 0 PARoxetine (Paxil) 20 MG tablet Take 1 tablet (20 mg total) by mouth 1 (one) time each day. as directed 30 tablet 11 Fhkxobdc-Uvm-Vj-FA ( 1 + IRON PO) Take by mouth. (Patient not taking: Reported on 05/11/2025) tacrolimus (Prograf) 1 MG capsule Take 3 capsules (3 mg) by mouth 2 (two) times a day. No current facility-administered medications for this encounter. Cosigned by Wayne Steven MD at 05/15/2025 11:22 AM EST Associated attestation - Wayne Steven MD - 05/15/2025 11:22 AM EST Signature only. documented in this encounter Plan of Treatment Upcoming Encounters Date Type Department Care Team (Late st Contact Info) Description 09/14/2025 12:20 PM EST Office Visit [facility] Endocrinology [address] [place] [id number] Preeti Gomez MD [address] [phone] documented as of this encounter Procedures Procedure Name Priority Date/Time Associated Diagnosis Comments IR ANGIOGRAM ARTERIOVENOUS SHUNT Routine 05/15/2025 12:52 PM EST ESRD on hemodialysis ([facility]) POCT , URINE Routine 05/15/2025 10:54 AM EST documented in this encounter Results * IR Angiogram ArterioVenous Shunt (05/15/2025 12:52 PM EST) Anatomical Region Laterality Modality X-Ray Angiograph y Impressions 05/15/2025 1:39 PM EST Successful left upper extremity brachiocephalic AV fistulogram and successful sequential balloon angioplasty of moderate grade central venous stenosis with resolution. PLAN: Post sedation recovery. In absence of interval symptomology or change in dialysis status, no need for follow-up AV fistulogram at this time. Discussed with patient. CRITICAL RESULT: No. COMMUNICATION: Per this written report. Drafted by Wayne Steven MD on 05/15/2025 1:31 PM Final report signed by Wayne Steven MD on 05/15/2025 1:39 PM Narrative 05/15/2025 1:39 PM EST CLINICAL INDICATION: 40-year-old female PMHx HTN, anxiety, left upper extremity brachiocephalic AV fistula (August 2018), ESRD s/p DDKT (November 2021) presenting for AV fistulogram; not currently on dialysis; intermittent left hand paresthesias in the past, none as of last visit; presents for left upper extremity AV fistulogram; prior angioplasty short segment moderate grade central venous stenosis brachiocephalic vein. TECHNIQUE: Commodities Manager: Wayne Steven MD Rad Dose: 283 mGy Medications: IV conscious sedation with continuous physiologic monitoring provided by a qualified healthcare professional using Versed 1.5 mg IV and Fentanyl 75 mcg IV. 1% Lidocaine SQ 10 mL . Duration of Conscious Sedation: Time out: 1219 close out: 1240 Physical examination of the fistula demonstrates a a patent left upper extremity brachiocephalic AV fistula with palpable thrill, moderately pulsatile on exam. Grossly symmetric to contralateral extremity; overlying skin unremarkable and intact. Procedure: After discussion of risks and benefits, informed written consent was obtained. Appropriate time out was done to confirm patient identity and planned procedure . Strict hand hygiene protocol was observed. All personnel in the room were attired in surgical hat and mask. The operators were in surgical hat, mask, sterile gloves, and sterile gowns. The site was prepped with 2% chlorhexidine for cutaneous antisepsis followed by sterile barrier draping. Following administration of local anesthesia with 1% lidocaine the AV fistula was accessed using a 21 gauge micropuncture needle in the direction of the venous outflow. The needle was exchanged over a guide wire for a 4 Belarusian micropuncture sheath. An angiogram was performed from the site of puncture to the superior vena cava. Digital subtraction angiography was performed of the fistula from peripheral to central. 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 Remaining AV fistulogram unremarkable and patent. The micropuncture sheath was exchanged for an 8 Belarusian vascular sheath. Via the sheath, A 0.035 inch Glidewire wire was placed centrally and parked within the IVC. Sequential balloon angioplasty of the distal left brachiocephalic vein was performed sequentially utilizing a 14 mm x 4 cm balloon with incomplete response; subsequently balloon angioplasty was performed with use of a 16 mm x 4 cm angioplasty balloon. The balloon was then removed and a 12 mm x 6 mm drug coated balloon was inserted and insufflated to nominal pressure across the region of relieved stenosis. Balloon insufflation out for 2 minutes. Complete resolution of moderate grade left brachiocephalic central venous stenosis upon completion digital subtraction angiogram, representing technical success. Additionally the sheath was retracted and pressure was applied to the venous outflow of the fistula and digital subtraction angiogram performed. Patent arteriovenous anastomosis; no arteriovenous stenosis. Patent arterial outflow to the hand, findings suboptimally seen given large caliber cephalic venous outflow; no high-grade lesion at arteriovenous stenosis is demonstrated. The sheath was removed, and a z-string suture was placed at the site of puncture. The patient tolerated the procedure well, and there were no complications. Thrill is noted at the level of the venous limb at the end of the procedure; resolution of preprocedural AV fistula pulsatility. COMPARISON: Fluoroscopic guided AV fistulogram 01/23/2025. Fluoroscopic guided AV fistulogram 10/17/2024. FINDINGS: Moderate grade short segment central venous stenosis; left brachiocephalic vein. Complete resolution central venous stenosis following serial balloon angioplasty and completion angioplasty with drug coated balloon. COMPLICATION: No. Procedure Note Wayne Steven MD - 05/15/2025 CLINICAL INDICATION: 40-year-old female PMHx HTN, anxiety, left upper extremity brachiocephalicAV fistula (August 2018), ESRD s/p DDKT (November 2021) presenting for AVfistulogram; not currently on dialysis; intermittent left handparesthesias in the past, none as of last visit; presents for left upperextremity AV fistulogram; prior angioplasty short segment moderate gradecentral venous stenosis brachiocephalic vein. TECHNIQUE: Commodities Manager: Wayne Steven MD Rad Dose: 283 mGy Medications: IV conscious sedation with continuous physiologic monitoringprovided by a qualified healthcare professional using Versed 1.5 mg IV andFentanyl 75 mcg IV. 1% Lidocaine SQ 10 mL . Duration of Conscious Sedation: Time out: 1219 close out: 1240 Physical examination of the fistula demonstrates a a patent left upperextremity brachiocephalic AV fistula with palpable thrill, moderatelypulsatile on exam. Grossly symmetric to contralateral extremity; overlyingskin unremarkable and intact. Procedure: After discussion of risks and benefits, informed written consent wasobtained. Appropriate time out was done to confirm patient identity andplanned procedure . Strict hand hygiene protocol was observed. All personnel in the room wereattired in surgical hat and mask. The operators were in surgical hat,mask, sterile gloves, and sterile gowns. The site was prepped with 2%chlorhexidine for cutaneous antisepsis followed by sterile barrierdraping. Following administration of local anesthesia with 1% lidocaine the AVfistula was accessed using a 21 gauge micropuncture needle in thedirection of the venous outflow. The needle was exchanged over a guidewire for a 4 Belarusian micropuncture sheath. An angiogram was performed fromthe site of puncture to the superior vena cava. Digital subtractionangiography was performed of the fistula from peripheral to central. Ashort segment moderate grade stenosis of the left brachiocephalic vein wasagain demonstrated similar to prior examination. Remaining AV fistulogramunremarkable and patent. The micropuncture sheath was exchanged for an 8 Belarusian vascular sheath.Via the sheath, A 0.035 inch Glidewire wire was placed centrally andparked within the IVC. Sequential balloon angioplasty of the distal leftbrachiocephalic vein was performed sequentially utilizing a 14 mm x 4 cmballoon with incomplete response; subsequently balloon angioplasty wasperformed with use of a 16 mm x 4 cm angioplasty balloon. The balloon wasthen removed and a 12 mm x 6 mm drug coated balloon was inserted andinsufflated to nominal pressure across the region of relieved stenosis.Balloon insufflation out for 2 minutes. Complete resolution of moderategrade left brachiocephalic central venous stenosis upon completion digitalsubtraction angiogram, representing technical success. Additionally the sheath was retracted and pressure was applied to thevenous outflow of the fistula and digital subtraction angiogram performed.Patent arteriovenous anastomosis; no arteriovenous stenosis. Patentarterial outflow to the hand, findings suboptimally seen given largecaliber cephalic venous outflow; no high-grade lesion at arteriovenousstenosis is demonstrated. The sheath was removed, and a z-string suture was placed at the site ofpuncture. The patient tolerated the procedure well, and there were nocomplications. Thrill is noted at the level of the venous limb at the end of theprocedure; resolution of preprocedural AV fistula pulsatility. COMPARISON: Fluoroscopic guided AV fistulogram 01/23/2025. Fluoroscopic guided AV fistulogram 10/17/2024. FINDINGS: Moderate grade short segment central venous stenosis; left brachiocephalicvein. Complete resolution central venous stenosis following serial balloonangioplasty and completion angioplasty with drug coated balloon. COMPLICATION: No. IMPRESSION: Successful left upper extremity brachiocephalic AV fistulogram andsuccessful sequential balloon angioplasty of moderate grade central venousstenosis with resolution. PLAN: Post sedation recovery. In absence of interval symptomology or change in dialysis status, no needfor follow-up AV fistulogram at this time. Discussed with patient. CRITICAL RESULT: No. COMMUNICATION: Per this written report. Drafted by Wayne Steven MD on 05/15/2025 1:31 PM Final report signed by Wayne Steven MD on 05/15/2025 1:39 PM us Wayne Steven MD IMG IR PROCEDURES Final Resul t * POCT , URINE (05/15/2025 10:54 AM EST) POCT Test, Urine Negative Males and Non- Females: Negative 05/15/2025 11:01 AM EST [facility] Iron Melter ID [place] 05/15/2025 11:01 AM EST [facility] Device ID [id number] 05/15/2025 11:01 AM EST [facility] Urine Urine specimen obtained by clean catch procedure / Unknown 05/15/2025 10:54 AM EST 05/15/2025 11:01 AM EST us Loreto Pemberton RN LAB POINT OF CARE T EST DOCKED DEVICE UNSOLICITED RESULTS Final Result [facility] [address] [place] [address] documented in this encounter Visit Diagnoses Diagnosis ESRD on hemodialysis (CMS/FORMERLY [facility]) documented in this encounter Administered Medications Inactive Administered Medications - up to 3 most recent administrations Medication Order MAR Action Action Date Dose Rate Site fentaNYL (Sublimaze) injection Intravenous, As needed, Starting on 05/15/25 at 1219, Until 05/15/25 at 1235, Routine, Intraprocedure Given 05/15/2025 12:35 PM EST 25 mcg Given 05/15/2025 12:19 PM EST 50 mcg iohexol (OMNIPaque) 300 MG/ML injection - Pyxis Override Pull 1 dose, Starting on 05/15/25 at 1139, Until Thu05/15/25 at 1246 Given by Other 05/15/2025 12:46 PM EST 104 mL lidocaine (Xylocaine) 1 % injection Intradermal, As needed, Starting on Thu05/15/25 at 1221, Until Thu05/15/25 at 1244, Routine, Intraprocedure Given 05/15/2025 12:44 PM EST 5 mL Left Upper Arm Given 05/15/2025 12:21 PM EST 5 mL L eft Upper Arm midazolam (Versed) injection Intravenous, As needed, Starting on 05/15/25 at 1219, Until Thu05/15/25 at 1235, Routine, Intraprocedure Given 05/15/2025 12:35 PM EST 0.5 mg Given 05/15/2025 12:19 PM EST 1 mg documented in this encounter Additional Health Concerns Infection Onset Date Last Indicated Resolved Time 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 Assessment Noted Time PHQ-9 Depression Total Score: 0 09/16/19 1:23 PM EST A fall risk assessment has been complete d for the patient 08/24/2024 1:09 PM EST A Body Mass Index follow-up plan has been documented for the patient 05/15/2025 2:10 PM EST documented as of this encounter Care Teams Textile Broker Relationship Specialty Start Date End Date Terry Ag MD [address] [place] [address] Transplant Physician Transplant Surgery 12/02/20 Lee Ellis MD [address] [place] [address] Transplant Physician Transplant Surgery 12/02/20 Cici Wiley [id number] Surgical Navigator Transplant 12/02/20 Aleksandra Mensah RN [facility] [address] [place] [id number] Surgical Navigator Transplant Surgery 02/15/21 documented as of this encounter
--- NOTE | 2025-06-14 15:26 | MM_ITS ---
PROCEDURE INFORMATION: Exam: MG Bilateral Screening 3D Mammography Exam date and time: 06/14/2025 3:26 PM Age: 40 years old Clinical indication: Screening examination TECHNIQUE: Imaging protocol: Bilateral Screening tomosynthesis and 2D mammography including computer-aided detection (CAD) when performed. COMPARISON: No relevant prior studies available. FINDINGS: MAMMOGRAPHY: Breast composition: There are scattered areas of fibroglandular density. Mass: None. Architectural distortion: None. Calcifications: No suspicious calcifications. Asymmetric density: None. Skin thickening: None. Axillary adenopathy: None. IMPRESSION: No mammographic evidence of malignancy. Annual screening is recommended unless otherwise clinically indicated. ASSESSMENT: BI-RADS Category 1: Negative.
--- OUTSIDE RECORDS SUMMARY | 2025-06-14 15:26 | XMS_ITS | Encounter Summary ---
Author Organization Healthcare Address [address] [place] [address] Care Team Providers Care Associate Professor Of Forestry Name Role Phone Terry Ag MD Unavailable Lee Ellis MD Unavailable [phone] Cici Wiley Unavailable Unavailable Aleksandra Mensah RN Unavailable Unavailable Encounter Details Date Type Department Care Team (Latest Contact Info) Description 05/15/2025 Travel Social History Tobacco Use Types Packs/Day Years [...] 09/15/2024 How often do you attend chur ch or restoration services? Never 09/15/2024 Do you belong to any clubs o r organizations such as religion groups, unions, fraternal or athletic groups, or [...] Recorded Patient Health Questionnaire-2 Score 0 10/05/2024 [facility] - [...] place to sleep or slept in a half-way (including now)? No 04/14/2024 [place] Depression Scale Answer Date Recorded [place] Depression Scale Total 0 11/03/2024 The thought [...] any time in the past 12 m [facility], were you homeless or living in a half-way (including now)? No 09/15/2024 Utilities Answer Date [...] on file documented as of this encounter Functional Status * Calculated C-SSRS Risk Score (Lifetime/Recent) Answer Date of Assessment Author No Risk Indicated 05/15/2025 10:45 AM Loreto Rojas RN * Question Answer Date of Assessment Author 1. Wish to be (Past 1 Month) No 05/15/2025 10:45 AM Loreto Bang RN 2. Non-Specific Active Suici odell Thoughts (Past 1 Month) No 05/15/2025 10:45 AM Addi Bang RN 6. Suicidal Behavior (Lifetime) No 10:45 AM Loreto Bang RN documented as of this encounter Plan of Treatment Upcoming Encounters Date Type Department Care Team (Late st Contact Info) Description 09/14/2025 12:20 PM EST Office Visit [facility] Endocrinology [address] [place] [phone] Preeti Gomez MD [address] [facility] [address] [place] [address] documented as of this encounter Visit Diagnoses Not on filedocumented in this encounter Additional Health Concerns Infection [...] documented as of this encounter Care Teams Associate Professor Of Forestry Relationship Specialty Start Date End Date Terry Ag MD [address] [place] [address] Transplant Physician Transplant Surgery 12/02/20 Lee Ellis MD [address] [place] [address] Transplant Physician Transplant Surgery 12/02/20 Cici Wiley [id number] Surgical Navigator Transplant 12/02/20 Aleksandra Mensah RN [facility] [address] [place] [id number] Surgical Navigator Transplant Surgery 02/15/21 documented as of this encounter
--- OUTSIDE RECORDS SUMMARY | 2025-06-14 15:26 | XMS_ITS | Encounter Summary ---
Author Organization Healthcare Address [address] [place] [address] Care Team Providers Care Building Construction Ironworker Name Role Phone Terry Ag MD Unavailable Lee Ellis MD Unavailable [phone] Cici Wiley Unavailable Unavailable Aleksandra Mensah RN Unavailable Unavailable Reason for Visit * Reason Comments Med Refill Encounter Details Date Type Department Care Team (Late st Contact Info) Description 05/30/2025 Refill [facility] Endocrinology [address] [place] [address] Misbah Anand MD [address] [address] Type 2 diabetes mellitus with hyperglycemia, with long-term current use of insulin Social History Tobacco Use Types Packs/Day Years [...] How often do you attend chur or mu-ism services? Never 09/15/2024 Do you belong to any clubs o r organizations such as hindu groups, unions, fraternal or athletic groups, or [...] Recorded Patient Health Questionnaire-2 Score 0 10/05/2024 [facility] - Occupational Stress [...] place to sleep or slept in a [place] facility (including now)? No 04/14/2024 [place] Depression Scale Answer Date Recorded [place] Depression Scale Total 0 11/03/2024 The thought [...] in the past 12 m [facility], were you homeless or living in a [place] health [place] facility (including now)? No 09/15/2024 Utilities Answer Date [...] on file documented as of this encounter Miscellaneous Notes * Telephone Encounter - Ekaterina Hinson, RN - 05/30/2025 2:13 PM EST Refill request does not meet protocol. Sending to clinic for review. Additional info: Clarification required: Clinic note 05/11/2025 indicates dose is 20 units BID. documented in this encounter Plan of Treatment Upcoming Encounters Date Type Department Care Team (Late st Contact Info) Description 09/14/2025 12:20 PM EST Office Visit [facility] Endocrinology [address] [place] [phone] Preeti Gomez MD [address] [place] [phone] documented as of this encounter Visit Diagnoses Diagnosis Type 2 diabetes mellitus with hyperglycemia, with long-term current use of insulin documented in this encounter Additional Health Concerns [...] documented as of this encounter Care Teams Building Construction Ironworker Relationship Specialty Start Date End Date Terry Ag MD [address] [place] [phone] Transplant Physician Transplant Surgery 12/02/20 Lee Ellis MD [address] [place] [address] Transplant Physician Transplant Surgery 12/02/20 Cici Wiley [id number] Surgical Navigator Transplant 12/02/20 Aleksandra Mensah RN [facility] [address] [place] [id number] Surgical Navigator Transplant Surgery 02/15/21 documented as of this encounter
--- OUTSIDE RECORDS SUMMARY | 2025-06-14 15:26 | XMS_ITS | Clinical Summary ---
Author Organization [facility] Address [address] [place] [address] Care Team Providers Care Blood Collector Name Role Phone System, Provider Not In Primary Care Provider Un available Allergies Active Allergy Reactions Criticality Noted Date Comments Penicillins Hives Medium 05/21/2016 Sulfa Antibiotics Other (See Comments) Medium 05/21/20 16 ADVERSE KIDNEY RESPONSE Vancomycin 05/21/2016 Medications magnesium oxide (MAGOX) 400 (241.3 Mg) MG tablet tablet Take 400 mg by mouth Daily. Active PARoxetine (PAXIL) 10 MG tablet Take 10 mg by mouth Every Morning. Active pantoprazole (PROTONIX) 40 MG EC tablet 06/28/2018 Active PARoxetine (PAXIL) 20 MG tablet 06/27/2018 Active carvedilol (COREG) 25 MG tablet 09/05/2018 Active amLODIPine (NORVASC) 5 MG tablet 0 04/26/2019 Active calcitriol (ROCALTROL) 0.25 MCG capsule 0 04/26/2019 Active sevelamer (RENVELA) 800 MG tablet take 2 tablets with meals and 1 WITH SNACKS 0 04/28/2019 Active Active Problems No known active problems Family History Medical History Relation Name Comments No Known Problems Mother Relation Name Status Comments Mother Alive Social History Tobacco Use Types Packs/Day Years Used Date Smoking Tobacco: Never Alcohol Use Standard Drinks/Week Comments No 0 (1 standard drink = 0.6 oz pur e alcohol) AUDIT-C Answer Date Recorded Frequency of Alcohol Consumption Never 05/20/2019 Average Number of Drinks Not on file 019 Frequency of Binge Drinking Not on file 02/2019 Abuse Screen Answer Date Recorded Unsafe at Home or Work/School Not on file Feels Threatened by Someone? Not on file 05/2023 Does Anyone Keep You from Co ntacting Others or Doint Things Outside the Home? Not on file 04/22/2023 Physical Sign of Abuse Present Not on file 1 Housing Stability Answer Date Recorded Current Living Arrangements Not on file 04/12 Potentially Unsafe Housing Conditions Not on olive e 04/22/2023 Family and Community Support Answer Feliciano e Recorded Help with Day-to-Day Activities Not on file 04/22/2023 Lonely or Isolated Not on file 04/22/2023 Employment Answer Date Recorded Do you want help finding or keeping work or a geovanyn b? Not on file 04/22/2023 Disabilities Answer Date Recorded Concentrating, Remembering, or Making Decisions Difficulty Not on file 04/22/2023 Doing Errands Independently Difficulty Not on fi le 04/22/2023 Education Answer Date Recorded Help with school or training? Not on file Preferred Language Not on file 04/22/2023 Comments No Sex and Gender Information Value Date Recorded Sex Assigned at Not on file Legal Sex Female 12:21 PM EST Gender Identity Not on file Sexual Orientation Not on file Last Filed Vital Signs Vital Sign Reading Time Taken Comments Blood Pressure 128/76 05/20/2019 1:42 PM EST Pulse 82 05/20/2019 1:42 PM EST Temperature 37.2 C (99 F) 05/20/2019 1:42 PM EST Respiratory Rate 12 05/20/2019 1:42 PM EST Oxygen Saturation 97% 05/20/2019 1:42 PM EST Inhaled Oxygen Concentration - - Weight 77 kg (169 lb 12.8 oz) 05/20/2019 1:42 PM EST Height 157.5 cm (5' 2 ) 05/20/2019 1:42 PM EST Body Mass Index 31.06 05/20/2019 1:42 PM EST Plan of Treatment Upcoming Encounters Date Type Department Care Team (Late st Contact Info) Description 10/05/2025 10:00 AM EDT Office Visit [facility] MEDICAL [facility] RHEUMATOLOGY [address] [address] Rai Mcarthur DO [address] [place] [id number] Health Maintenance Due Date Last Done Comments Annual Gynecologic Pelvic an d Breast Exam 1985 TDAP/TD VACCINES (1 - Tdap) 2004 ANNUAL PHYSICAL 09/06/2017 HEPATITIS C SCREENING 09/06/2017 INFLUENZA VACCINE 02/10/2025 MAMMOGRAM 2025 Pneumococcal Vaccine 0-49 Aged Out No longer eligible based on patient's age to complete this topic Insurance Care Teams Blood Collector Relationship Specialty Start Date End Date System, [place] [address] PCP - General 06/02/25
--- OUTSIDE RECORDS SUMMARY | 2025-06-14 15:26 | XMS_ITS | Encounter Summary ---
Author Organization Healthcare Address [address] [place] [address] Care Team Providers Care Agile Scrum Coach Name Role Phone Terry Ag MD Unavailable Lee Ellis MD Unavailable [phone] Cici Wiley Unavailable Unavailable Aleksandra Mensah RN Unavailable Unavailable Reason for Visit * Reason Comments Med Refill Encounter Details Date Type Department Care Team (Late st Contact Info) Description 05/07/2025 Refill [facility] Diabetes Education [address] [place] [address] Preeti Gomez MD [address] [address] Social History Tobacco Use Types Packs/Day Years [...] How often do you attend chur or yazidism services? Never 09/15/2024 Do you belong to [...] Recorded Patient Health Questionnaire-2 Score 0 10/05/2024 [facility] - Occupational Stress [...] place to sleep or slept in a senior care (including now)? No 04/14/2024 [place] Depression Scale Answer Date Recorded [place] Depression Scale Total 0 11/03/2024 The thought [...] any time in the past 12 m [facility], were you homeless or living in a senior care (including now)? No 09/15/2024 Utilities Answer Date [...] encounter Miscellaneous Notes * Telephone Encounter - Frandy Oneal PharmD - 05/08/2025 9:10 AM EDT 1 medication(s) has been approved per protocol. documented in this encounter Plan of Treatment Upcoming Encounters Date Type Department Care Team (Late st Contact Info) Description 09/14/2025 12:20 PM EST Office Visit [facility] Endocrinology [address] [place] [address] Preeti Gomez MD [address] [place] [phone] documented as of this encounter Visit Diagnoses [...] plan has been documented for the patient 01/23/2025 3:41 PM EDT documented as of this encounter Care Teams Agile Scrum Coach Relationship Specialty Start Date End Date Terry Ag MD [address] [place] [address] Transplant Physician Transplant Surgery 12/02/20 Lee Ellis MD [address] [place] [address] Transplant Physician Transplant Surgery 12/02/20 Cici Wiley [id number] Surgical Navigator Transplant 12/02/20 Aleksandra Mensah RN [facility] [address] [place] [id number] Surgical Navigator Transplant Surgery 02/15/21 documented as of this encounter
--- OUTSIDE RECORDS SUMMARY | 2025-06-14 15:26 | XMS_ITS | Clinical Summary ---
Author Organization [facility] Address [address] [place] [address] Care Team Providers Care Social Group Worker Name Role Phone Terry Ag MD Unavailable Lee Ellis MD Unavailable [phone] Cici Wiley Unavailable Unavailable Aleksandra Mensah RN Unavailable Unavailable Allergies Active Allergy Reactions Criticality Noted Date Comments Mycophenolate Other - please document in the comment field,Nausea Low 06/07/2018 severe headache, stomach pain,vomiting. resulted in hospitalization. severe headache, stomach pain,vomiting. 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 020 Active PARoxetine (Paxil) 20 MG tablet Take 1 tablet (20 mg total) by mouth 1 (one) time each day. as directed 30 tablet 11 021 Active ALBUTEROL IN Inhale 1-2 puffs if needed. Active tacrolimus (Prograf) 1 MG capsule Take 3 capsules by mouth 2 times a day. Active azaTHIOprine (Imuran) 100 MG tablet Take 1 tablet by mouth daily. Active Ywripbfq-Fxc-Sn-F A ( 1 + IRON PO) Take by mouth. Activ e acetone, urine, test strip 1 strip if needed for high blood sugar. 25 each Active glucose (Trueplus Glucose) 4 g chewable tablet Chew 4 tablets (16 g) if needed for low blood sugar. 50 tablet 12 Active Glucose Blood (Blood Glucose Test) strip Use as back up to CGM as needed. Use to check BG levels 3 times a day. 300 strip 5 Active Lancets misc Use to check blood sugar 3 times daily 300 each 3 Active Magnesium Cl-Calcium Carbonate 71.5-119 MG tablet delayed-release Take 142 mg by mouth 1 (one) time each day. Active Continuous Glucose Sensor (Dexcom G7 Sensor) miscIndications:T ype 2 diabetes mellitus with hyperglycemia, with long-term current use of insulin 1 each every 10 (ten) days. 9 each 3 Active ondansetron ODT (Zofran-ODT) 4 MG disintegrating tablet Take 1 tablet (4 mg) by mouth every 8 (eight) hours if needed for nausea or vomiting. 10 tablet Active Additional Information Patient not taking.Reported on 05/15/2025 LORazepam (Ativan) 0.5 MG tablet Bring this medication with you to your appointment. Do not take them until you have spoken with the doctor that day. 2 tablet 025 Active doxycycline (Vibramycin) 100 MG capsuleIndication s:Need for antibiotic prophylaxis for surgical procedure Bring this medication to your appointment, do not take it until you have spoken to your doctor. 2 capsule Active ondansetron (Zofran) 4 MG tablet Take one tablet about an hour before the procedure. 2 tablet Active Additional Information Patient not taking.Reported on 05/15/2025 acetaminophen (Tylenol Extra Strength) 500 MG tablet Take both tablets by mouth about one hour prior to your procedure. 2 tablet Active oxyCODONE (Roxicodone) 5 MG immediate release tablet Please bring this medication to your appointment, do not take until you have spoken with your doctor that day. 1 tablet 025 Active Additional Information Patient not taking.Reported on 05/15/2025 miSOPROStol (Cytotec) 200 MCG tablet 1 tablet. Active labetalol (Normodyne) 100 MG tablet Take 1 tablet by mouth twice daily 180 tablet 025 Active insulin lispro (Admelog, HumaLOG) 100 UNIT/ML injection penIndications:Ty pe 2 diabetes mellitus with hyperglycemia, with long-term current use of insulin Inject 15-17 units before each meal 3 times per day MDD 60 30 mL 3 025 Active Insulin Pen Needle (ReliOn Pen Avoca) 32G X 4 MM misc USE 4 TIMES DAILY DIRECTED TO INJECT INSULIN 300 each 025 Active insulin glargine (Lantus SoloStar) 100 UNIT/ML injection penIndications:Ty pe 2 diabetes mellitus with hyperglycemia, with long-term current use of insulin Inject 20 units twice daily 15 mL 3 025 Active insulin glargine-yfgn 100 UNIT/ML injection pen INJECT 10 UNITS SUBCUTANEOUSLY IN THE MORNING AND 30 IN THE EVENING . 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 , antepartum 04/18/2020 Nervous 01/31/2020 Kidney disease 01/31/2020 Urinary urgency 01/31/2020 Asymmetric tonsils 08/12/2017 Tonsil stone 08/12/2017 Polyarthralgia 03/24/2017 Hearing loss, mixed, unilateral 11/09/2015 Nasal turbinate hypertrophy 11/09/2015 Heart murmur 02/09/2012 HTN (hypertension) 02/09/2012 Brachial plexus disorders 02/09/2012 Nephritis 02/09/2012 History of kidney transplant 03/23/2008 Overview (07/16/2021): Patient Had a kidney tx 03/16/2007 Resolved Problems Problem Noted Date Diagnosed Date Resolved Date Heartburn 01/31/2020 04/02/2025 Encounters Date Type Department Care Team Description 06/06/2025 Telephone [facility] [address] [facility] [address] [place] [address] Cici Wiley Txp Surgical Follow-up (Rhonda: AVF) 05/30/2025 [facility]ill [facility] [address] [place] [address] Misbah Anand MD Type 2 diabetes mellitus with hyperglycemia, with long-term current use of insulin 05/15/2025 10:32 AM EST - 05/15/2025 11:59 PM [facility] Hospital Encounter [facility] [address] [place] [address] Loreto Pemberton, RN ESRD on hemodialysis ([facility]) Discharge Disposition: Home or Self Care 05/15/2025 Travel 05/11/2025 11:40 AM EDT [facility] [address] [place] [address] Preeti Gomez MD Type 2 diabetes mellitus with hyperglycemia, with long-term current use of insulin (Primary Dx) 05/11/2025 Travel 05/07/2025 [facility] [address] [place] [address] Preeti Gomez MD 2025 Telephone [facility] [address] [place] [address] Boni Reardon, RN from Last 3 Months Immunizations Immunization Administration Dates Next Due Hep B, adult 07/13/2005 Influenza, Unspecified 05/26/2008 Influenza, injectable, quadrivalent, preservativ e free 2018 Influenza, seasonal, injectable 05/26/2008,05/13 Influenza, seasonal, injectable, preservative fr ee 05/12/2024,07/19/2012 [employer] COVID-19 Vaccine (Purple Cap) 12 + 11/12/2020,10/26/2020 Pneumococcal Polysaccharide PPV23 2018 TD (adult), 2 Lf tetanus tox oid, preservative free, adsorbed 07/13/2005 Tdap 10/16/2011 Varicella 12/01/2006,07/13/2005 Family History Medical History Relation Name Comments Deafness Brother Diabetes Brother Hypertension Brother Diabetes Maternal Grandmother Hypertension Maternal Grandmother Endometriosis Mother Hyperlipidemia Mother Hypertension Mother Migraines Mother Thyroid disease Mother Autoimmune disease Sister Endometriosis Sister Hearing loss Sister Relation Name Status Comments Brother Maternal Grandmother Mother Sister Social History Tobacco Use Types Packs/Day Years [...] or neighbors? Three times a week 09/16/19 25 How often do you get togethe r with friends or relatives? Twice a week 09/15/2024 How often do you attend [facility] or holiness services? Never 09/15/2024 Do you belong to any clubs o r organizations such as judaism groups, unions, fraternal or athletic groups, or [...] Recorded Patient Health Questionnaire-2 Score 0 10/05/2024 [facility] Stress Questionnaire Answer Date Recorded [...] place to sleep or slept in a prison (including now)? No 04/14/2024 [place] Depression Scale Answer Date Recorded [place] Depression Scale Total 0 11/03/2024 The thought [...] any time in the past 12 m [facility], were you homeless or living in a prison (including now)? No 09/15/2024 Utilities Answer Date Recorded In the past 12 months has [employer] electric, gas, oil, or water Chloe + Isabel threatened to shut off services in your [...] AM EST Sexual Orientation Not on file Last Filed [...] Mass Index 38.28 05/15/2025 10:45 AM EST Plan of Treatment Upcoming Encounters Date Type Department Care Team (Late st Contact Info) Description 09/14/2025 12:20 PM EST Office Visit [facility] [address] [place] [address] Preeti Gomez MD [address] [place] [address] Health Maintenance Due Date Last Done Comments [facility]-/Child/Adol SDOH Screenings 1985 Diabetes: Dental Exam 1995 [facility]-Zoster Vaccines (1 of 2) 2004 12/01/2006, 07/13/2005 [facility]-Hepatitis B Vaccines (2 of 5 - Risk Dialysis 4-dose series) 08/10/2005 07/13/2005 HPV Vaccines (1 - Risk 3-dose SCDM series) 2012 [facility]-Pneumococcal Vaccine: Pediatrics (0 to 5 Years) and At-Risk Patients (6 to 49 Years) (2 of 2 - PCV) 2019 2018 [id number] Vaccine (3 - Pfizer risk series) 12/10/2020 11/12/2020, 10/26/2020 [facility]-DTaP,Tdap,and Td Vaccines (2 - Td or Tdap) 10/15/2021 10/16/2011, 07/13/2005 [facility]-Influenza Vaccine (#1) 03/13/202505/12, 2018, 07/19/2012, Additional history exists [facility]- SDOH Screenings 03/18/2025 [facility]-Adult SDOH Screenings 03/18/2025 09/15/2024 [facility]-Depression Screening 11/03/2025 025, 10/05/2024, 09/15/2024 [facility]-Diabetes: Hemoglobin A1C 11/08/2025 05/11/2025, 01/16/2025, 09/15/2024, Additional history exists [facility]-Pap Smear 03/02/2026 03/02/2023, 10/2021, 02/21/2020, Additional history exists [facility]-Cervical Cancer Screening 03/02/2028 [facility]-HPV/Cotest 03/02/2028 03/02/2023, 10/2021, 07/16/2021, Additional history exists [facility]-Varicella Vaccines Completed 12/01/2006, 2005 [facility]-HIV Screening Completed 09/15/2024, , 01/06/2022, Additional history exists [facility]-Hepatitis C Screening Completed 2024, 11/06/2023, 10/03/2021, Additional history exists [facility]-Obesity Intervention Completed 025, 05/11/2025, 01/23/2025, Additional history exists [facility]-HIB Vaccines Aged Out No longer e ligible based on patient's age to complete this topic [facility]-Hepatitis A Vaccines Aged Out No longer eligible based on patient's age to complete this topic [facility]-IPV Vaccines Aged Out No longer e ligible based on patient's age to complete this topic [facility]-Rotavirus Vaccines Aged Out No lo nger eligible based on patient's age to complete this topic Procedures Procedure Name Priority Date/Time Associated Diagnosis Comments IR ANGIOGRAM ARTERIOVENOUS SHUNT Routine 05/15/2025 12:52 PM EST ESRD on hemodialysis (CMS/HCC) POCT , URINE Routine 05/15/2025 10:54 AM EST POCT GLYCOSYLATED HEMOGLOBIN (HGB A1C) Routine 05/11/2025 11:39 AM EDT Type 2 diabetes mellitus with hyperglycemia, with long-term current use of insulin HEPATITIS C ANTIBODY W/REFLEX TO HCV QUANT PCR Routine 09/15/2024 3:17 PM EST Supervision of high risk in first trimester HIV 1/2 ANTIBODY/ANTIGEN SCREEN WITH REFLEX TO HIV I/II DIFFERENTIATION Routine 09/15/2024 3:17 PM EST Supervision of high risk in first trimester PAP TEST - CYTOLOGY Routine 03/02/2023 1 0:50 AM EDT Well woman exam with routine gynecological exam from Last 3 Months or Most Recently Relevant to Health Maintenance Results * IR Angiogram ArterioVenous Shunt (05/15/2025 [...] grade central venous stenosis brachiocephalic vein. TECHNIQUE: Manager Development: Wayne Steven MD Rad Dose: 283 mGy [...] over a guide wire for a 4 Macanese micropuncture sheath. An angiogram was performed from the site of puncture to the superior vena cava. Digital subtraction angiography was performed of the fistula from peripheral to central. 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 Remaining AV fistulogram unremarkable and patent. The micropuncture sheath was exchanged for an 8 Macanese vascular sheath. Via the sheath, A 0.035 [...] moderate gradecentral venous stenosis brachiocephalic vein. TECHNIQUE: Manager Development: Wayne Steven MD Rad Dose: 283 mGy [...] exchanged over a guidewire for a 4 Macanese micropuncture sheath. An angiogram was performed fromthe site of puncture to the superior vena cava. Digital subtractionangiography was performed of the fistula from peripheral to central. Ashort segment moderate grade stenosis of the left brachiocephalic vein wasagain demonstrated similar to prior examination. Remaining AV fistulogramunremarkable and patent. The micropuncture sheath was exchanged for an 8 Macanese vascular sheath.Via the sheath, A 0.035 inch [...] Non- Females: Negative 05/15/2025 11:01 AM EST [facility] Metal Cutter ID [place] 05/15/2025 11:01 AM EST [facility] Device ID [id number] 05/15/2025 11:01 AM EST [facility] Urine Urine specimen obtained by clean catch procedure / Unknown 05/15/2025 10:54 AM EST 05/15/2025 11:01 AM EST Loreto Pemberton RN LAB POINT OF CARE T EST DOCKED DEVICE UNSOLICITED RESULTS Final Result Performing Organization Address City/[facility]/ZIP Co de Phone Number [facility] [address] [place] [address] * (ABNORMAL) POCT glycosylated hemoglobin (Hb A1C) (05/11/2025 11:39 AM EDT) [facility] POCT Hemoglobin A1C 6.6 <5.7% Non-Diabet ic % [facility] Kit Lot Number [id number] [facility] Kit Expiration Date 03/08 [facility] Blood Venous blood specimen / Unknown 05/11/2025 11:39 AM EDT Preeti Gomez MD POINT OF CARE TEST ENTER/EDIT ORDERABLES Final Result Performing Organization Address [facility] Co de Phone Number [facility] [address] [place] [address] * HIV 1 & 2 Antibody/Antigen Screen (09/15/2024 3:17 PM EST) [facility] HIV 1 & 2 Antibody/Antigen Screen Non Reactive Non Reactive 09/15/2024 6:42 PM EST [facility] Comment:Screening for HIV 1 & 2 antibodies, and P24 antigen is NONREACTIVE. No confirmatory testing is required. Blood Venous blood specimen / Unknown Venipuncture / Unknown 09/15/2024 3:17 PM EST 09/15/2024 3:17 PM EST us Ekaterina Ann MD LAB BLOOD ORDERABLES Final Re sult Performing Organization Address City/[facility]/ZIP Co de Phone Number [facility] [address] [place] [address] * Hepatitis C Antibody (09/15/2024 3:17 PM EST) Hepatitis C Antibody Negative Negative 09/15/2024 6:34 PM EST [facility] Blood Venous blood specimen / Unknown Venipuncture / Unknown 09/15/2024 3:17 PM EST 09/15/2024 3:17 PM EST us Josie Mejia ASSOCIATE [employer] LAB BLOOD ORDERABLES Chen carlson Result [facility] [address] [place] [address] * Pap Test (03/02/2023 10:50 AM EDT) Case Report Cytology Case: [id number] Authorizing Provider: Guerline Madera APRN, Collected: 03/02/2023 1050 DNP Ordering Location: Medical Office Building Received: 03/02/2023 1211 Obstetrics and Gynecology First Screen: Ally Davis Pathologist: Nathalie Carrizales MD Specimen: ThinPrep Pap Test, Liquid-Based Cervical/Vaginal 03/12/2023 10:39 AM EDT [facility] Interpretation NEGATIVE FOR INTRAEPITHELIAL LESION OR MALIGNANCY 03/12/2023 10:39 AM EDT [facility] at 1038 EDT Other Findings Inflammatory change. 03/12/2023 10:39 AM EDT [facility] Specimen Adequacy Satisfactory for evaluation; endocervical/chaudhry sformation zone component absent/insufficie nt. Slide imaged by the ThinPrep Imaging system and selected 22 leyva reviewed then full manual screening. 03/12/2023 10:39 AM EDT [facility] Cervical cytology is a screening test primarily for squamous cancers and precursors and has associated false negative and positive results. New technologies such as liquid based sampling may decrease but will not eliminate all false negative results. Regular screening and follow-up of unexplained clinical signs and symptoms are recommended to minimize false negative results. Please see the ASCCP website (www.asccp.org)fo r followup recommendations. If HPV testing was requested, correlation with the results is suggested (please call Microbiology at [phone] for results). 03/12/2023 10:39 AM EDT [facility] Menstrual Status Cyclic with Unknown Last Menstrual Period 03/12/2023 10:39 AM EDT [facility] Contraceptive History Intrauterine device 03/12/2023 10:39 AM EDT [facility] Screening Type Routine Screen 2022 10:39 AM EDT [facility] High Risk? No 03/12/2023 10:39 AM EDT [facility] HPV Testing Requested? Request HPV Testing Regardless of Pap Test Findings 03/12/2023 10:39 AM EDT [facility] Previous Cancer History No 03/12/2023 10:39 AM EDT [facility] Clinical Information Z01.419 - Well woman exam with routine gynecological exam [ICD-10-CM] 03/12/2023 10:39 AM EDT [facility] Swab Vaginal and cervical cytologic material / Unknown Non-blood Collection / Unknown 03/02/2023 10:50 AM EDT 03/02/2023 12:11 PM EDT Guerline Madera APRN, DNP LAB CYTOLOGY ORDERABL ES Final Result [facility] [address] [place] [id number] from Last 3 Months or Most Recently Relevant to Health Maintenance Additional Health Concerns Infection Onset Date Last Indicated 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 Insurance MEDICAID [employer] [facility] Advance Directives * Full Code (Latest Code Status on File) Date Activated Date Inactivated Comments 10/17/2024 1:34 PM 10/18/2024 2:42 AM Care Teams Social Group Worker Relationship Specialty Start Date End Date Terry Ag MD [address] [place] [address] Transplant Physician Transplant Surgery 12/02/20 Lee Ellis MD [address] [place] [address] Transplant Physician Transplant Surgery 12/02/20 Cici Wiley [id number] Surgical Navigator Transplant 12/02/20 Aleksandra Mensah RN [facility] [address] [place] [id number] Surgical Navigator Transplant Surgery 02/15/21
--- OUTSIDE RECORDS SUMMARY | 2025-06-14 15:26 | XMS_ITS | Encounter Summary ---
Author Organization Healthcare Address [address] [place] [address] Care Team Providers Care Supervisor Extrusion Name Role Phone Terry Ag MD Unavailable Lee Ellis MD Unavailable [phone] Cici Wiley Unavailable Unavailable Aleksandra Mensah RN Unavailable Unavailable Encounter Details Date Type Department Care Team (Latest Contact Info) Description 05/11/2025 Travel Social History Tobacco Use Types Packs/Day [...] often do you attend chur ch or quaker services? Never 09/15/2024 Do you belong to any clubs o r organizations such as synagogue groups, unions, fraternal or athletic groups, or [...] Recorded Patient Health Questionnaire-2 Score 0 10/05/2024 [employer] [facility] - Occupational Stress [...] place to sleep or slept in a assisted (including now)? No 04/14/2024 [place] Depression Scale Answer Date Recorded [place] Depression Scale Total 0 11/03/2024 The thought [...] [facility] the [facility] were you homeless or living in a assisted (including now)? No 09/15/2024 Utilities Answer Date [...] on file documented as of this encounter Plan of Treatment Upcoming Encounters Date Type Department Care Team (Late st Contact Info) Description 09/14/2025 12:20 PM EST Office Visit [facility] [address] [place] [address] Preeti Gomez MD [address] [place] [address] documented as of this encounter Visit Diagnoses [...] documented as of this encounter Care Teams Supervisor Extrusion Relationship Specialty Start Date End Date Terry Ag MD [address] [place] [address] Transplant Physician Transplant Surgery 12/02/20 Lee Ellis MD [address] [place] [address] Transplant Physician Transplant Surgery 12/02/20 Cici Wiley [id number] Surgical Navigator Transplant 12/02/20 Aleksandra Mensah RN [facility] [address] [place] [id number] Surgical Navigator Transplant Surgery 02/15/21 documented as of this encounter
--- OUTSIDE RECORDS SUMMARY | 2025-06-14 15:26 | XMS_ITS | Encounter Summary ---
Author Organization [facility] Address [address] [place] [address] Care Team Providers Care Crane Service Technician Name Role Phone Terry Ag MD Unavailable Lee Ellis MD Unavailable [phone] Cici Wiley Unavailable Unavailable Aleksandra Mensah RN Unavailable Unavailable Reason for Referral * Imaging (Routine) - Pending Review Specialty Diagnoses / Procedures Referred By Ahmet t Referred To Contact Radiology Diagnoses Malfunction of arteriovenous dialysis fistula, initial encounter History of kidney transplant Procedures IR Angiogram ArterioVenous Shunt Consult to Interventional Radiology Lee Ellis MD [address] [address] Phone: tel: fax: Referral ID Status Reason Start Date Expiration Date V isits Requested Visits Authorized [id number] Pending Review 06/06/2025 12/06/2026 1 1 Reason for Visit * Reason Comments Txp Surgical Follow-up Rhonda: AVF Encounter Details Date Type Department Care Team (Late st Contact Info) Description 06/06/2025 Telephone [facility] [address] [address] Cici Wiley [id number] Txp Surgical Follow-up (Rhonda: AVF) Social History Tobacco Use Types Packs/Day Years [...] How often do you attend chur or hoahaoism services? Never 09/15/2024 Do you belong to any clubs o r organizations such as restorationism groups, unions, fraternal or athletic groups, or [...] Recorded Patient Health Questionnaire-2 Score 0 10/05/2024 [facility] - Occupational [...] place to sleep or slept in a intermediate (including now)? No 04/14/2024 [place] Depression Scale Answer Date Recorded [place] Depression Scale Total 0 11/03/2024 The thought [...] any time in the past 12 m [facility], were you homeless or living in a intermediate (including now)? No 09/15/2024 Utilities Answer Date [...] encounter Miscellaneous Notes * Telephone Encounter - Cici Wiley - 06/06/2025 12:18 PM EST I left a VM with Deb Mayur letting her know that Dr. Ellis was able to review her fistulogram that she had on 05/15. As long as she is having no issue, he would like for her to repeat it in one year. I left my contact information and ask that she give us a call if she needs anything in the mean time. IR order in [employer] documented in this encounter Plan of Treatment Upcoming Encounters Date Type Department Care Team (Late st Contact Info) Description 09/14/2025 12:20 PM EST Office Visit [facility] Endocrinology [address] [place] [address] Preeti Gomez MD [address] [facility] [address] [place] [address] Scheduled Orders Name Type Priority Associated Diagnoses Orde r Schedule IR Angiogram ArterioVenous Shunt Imaging Routine Malfunction of arteriovenous dialysis fistula, initial encounter History of kidney transplant Expected: 06/06/2026 (Approximate), Expires: 12/08/2026 documented as of this encounter Visit Diagnoses Diagnosis Malfunction of arteriovenous dialysis fistula, initial encounter- Primary History of kidney transplant Kidney replaced by transplant documented in this encounter Additional Health Concerns [...] documented as of this encounter Care Teams Crane Service Technician Relationship Specialty Start Date End Date Terry Ag MD [address] [place] [address] Transplant Physician Transplant Surgery 12/02/20 Lee Ellis MD [address] [place] [address] Transplant Physician Transplant Surgery 12/02/20 Cici Wiley [id number] Surgical Navigator Transplant 12/02/20 Aleksandra Mensah RN [facility] [address] [place] [id number] Surgical Navigator Transplant Surgery 02/15/21 documented as of this encounter
--- OUTSIDE RECORDS SUMMARY | 2025-06-14 15:26 | XMS_ITS | Encounter Summary ---
Author Organization Healthcare Address [address] [place] [address] Care Team Providers Care Geophysical Support Specialist Name Role Phone Terry Ag MD Unavailable Lee Ellis MD Unavailable [phone] Cici Wiley Unavailable Unavailable Aleksandra Mensah RN Unavailable Unavailable Encounter Details Date Type Department Care Team (Late st Contact Info) Description 2025 Telephone [facility] Interventional Radiology [address] [place] [address] Boni Reardon, RN None None Social History Tobacco Use Types Packs/Day Years [...] often do you attend chur ch or rastafarian services? Never 09/15/2024 Do you belong to [...] Recorded Patient Health Questionnaire-2 Score 0 10/05/2024 [facility] - [...] place to sleep or slept in a long-term (including now)? No 04/14/2024 [place] Depression Scale Answer Date Recorded [place] Depression Scale Total 0 11/03/2024 The thought [...] any time in the past 12 m [facility], were you homeless or living in a long-term (including now)? No 09/15/2024 Utilities Answer Date Recorded In the past 12 months has th e [employer], gas, oil, or water company threatened to [...] as of this encounter Miscellaneous Notes * Nursing Note - Boni Reardon RN - 2025 3:29 PM EDT Called and talked with patient regarding 05/08/25 Angiogram AterioVenous Shunt. Patient needs to reschedule this appointment. Message sent to IR schedulers. documented in this encounter Plan of Treatment Upcoming Encounters Date Type Department Care Team (Late st Contact Info) Description 09/14/2025 12:20 PM EST Office Visit [facility] Endocrinology [address] [place] [address] Preeti Gomez MD [address] [facility] [address] [place] [address] documented as of this encounter [...] documented as of this encounter Care Teams Geophysical Support Specialist Relationship Specialty Start Date End Date Terry Ag MD [address] [place] [address] Transplant Physician Transplant Surgery 12/02/20 Lee Ellis MD [address] [place] [address] Transplant Physician Transplant Surgery 12/02/20 Cici Wiley [id number] Surgical Navigator Transplant 12/02/20 Aleksandra Mensah, ROBBY [facility] [address] [place] [address] Surgical Navigator Transplant Surgery 02/15/21 documented as of this encounter
--- OUTSIDE RECORDS SUMMARY | 2025-06-14 15:27 | XMS_ITS | Encounter Summary ---
Author Organization Healthcare Address [address] [place] [address] Care Team Providers Care Clean Up Supervisor Name Role Phone Terry Ag MD Unavailable Lee Ellis MD Unavailable [phone] Cici Wiley Unavailable Unavailable Jarvis Bennett MD Primary Care Provider [phone] Aleksandra Mensah RN Unavailable Unavailable Octaviano Cabrera Primary Care Provider [phone] Josie Moseley Unavailable [phone] Encounter Details Date Type Department Care Team (Late st Contact Info) Description 03/26/2021 Lab Requisition [facility] [address] [place] [address] Janes Harrell MD [address] [facility] [address] [place] [address] Recurrent and persistent hematuria with other morphologic changes Social History Tobacco Use Types Packs/Day Years Used Date Smoking Tobacco: Never Smokeless Tobacco: Never Alcohol Use Standard Drinks/Week Comments No 0 (1 standard drink = 0.6 oz pur e alcohol) Alcoholic Drinks/day: Alcohol Comments Unknown Sex and Gender Information Value Date Recorded Sex Assigned at Female 07/25/2021 7:30 AM EST Legal Sex Female 7:46 PM EDT Gender Identity Female 07/25/2021 7:30 AM EST Sexual Orientation Not on file documented as of this encounter Plan of Treatment Upcoming Encounters Date Type Department Care Team (Late st Contact Info) Description 09/14/2025 12:20 PM EST Office Visit [facility] Endocrinology [address] [place] [address] Preeti Gomez MD [address] [place] [address] documented as of this encounter Procedures Procedure Name Priority Date/Time Associated Diagnosis Comments HLA ANTIBODY TESTING (LSA) Routine 03/25/2021 12:41 PM EDT Recurrent and persistent hematuria with other morphologic changes documented in this encounter Results * HLA Antibody Testing (LSA) (03/25/2021 12:41 PM EDT) Blood Venous blood specimen / Unknown 03/25/2021 12:41 PM EDT 03/26/2021 12:16 PM EDT us Janes Harrell MD LAB BLOOD ORDERABLES Final Res ult [facility] [address] documented in this encounter Visit Diagnoses Diagnosis Recurrent and persistent hematuria with other morphologic changes documented in this encounter Additional Health Concerns Infection Onset Date Last Indicated Resolved Time 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 Patient instructed that the local Health Dept. will be contacting them with a quarantine notice and to discuss contact tracing and should remain at home/isolated until notified. Patient was educated that if symptoms progress and they become short of air to proceed to the nearest ED. [facility] Private Tutor: Shelley Manzo 08/12/2021 08/12/202109/02 5:23 AM EST COVID-19 Rule-Out 09/24/2021 09/24/2021 09/24/2021 6:17 PM EDT Assessment Noted Time A fall risk assessment has been complete d for the patient 12/20/2020 2:48 PM EDT documented as of this encounter Care Teams Clean Up Supervisor Relationship Specialty Start Date End Date Jarvis Bennett MD [address] [place] [address] PCP - General 12/20/20 08/11/21 Octaviano Cabrera PA [address] [place] [address] PCP - General Internal Medicine 08/12/21 02/26/25 Terry Ag MD [address] [place] [address] Transplant Physician Transplant Surgery 12/02/20 Lee Ellis MD [address] [place] [address] Transplant Physician Transplant Surgery 12/02/20 Cici Wiley [id number] Surgical Navigator Transplant 12/02/20 Aleksandra Mensah RN [facility] [address] [place] [address] Surgical Navigator Transplant Surgery 02/15/21 Josie Moseley [address] [facility] [address] [place] [address] Digital Editor 04/13/24 04/13/25 documented as of this encounter
--- OUTSIDE RECORDS SUMMARY | 2025-06-14 15:27 | XMS_ITS | Encounter Summary ---
Author Organization Healthcare Address [address] [facility] [place] [address] Care Team Providers Care Rodent Exterminator Name Role Phone Terry Ag MD Unavailable Lee Ellis MD Unavailable [phone] Cici Wiley Unavailable Unavailable Aleksandra Mensah RN Unavailable Unavailable Octaviano Cabrera Primary Care Provider [phone] Josie Moseley Unavailable [phone] Encounter Details Date Type Department Care Team (Late st Contact Info) Description 10/22/2021 Lab Requisition [facility] [address] [place] [address] Janes Harrell MD [address] [facility] [address] [place] [address] Kidney transplant failure Social History Tobacco Use Types Packs/Day Years Used Date Smoking Tobacco: Never Smokeless Tobacco: Never Alcohol Use Standard Drinks/Week Comments No 0 (1 standard drink = 0.6 oz pur e alcohol) Alcoholic Drinks/day: Alcohol PHQ-2 Answer Date Recorded Patient Health Questionnaire-2 Score 0 07/31/2021 Comments No Sex and Gender Information Value Date Recorded Sex Assigned at Female 07/25/2021 7:30 AM EST Legal Sex Female 7:46 PM EDT Gender Identity Female 07/25/2021 7:30 AM EST Sexual Orientation Not on file COVID-19 Exposure Response Date Recorded In the last month, have you been in contact with someone who was confirmed or suspected to have Coronavirus / COVID-19? 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 Assessment Noted Time A fall risk assessment has been complete d for the patient 09/26/2021 8:10 AM EDT documented as of this encounter Care Teams Rodent Exterminator Relationship Specialty Start Date End Date Octaviano Cabrera PA [address] [place] [phone] PCP - General Internal Medicine 08/12/21 02/26/25 Terry Ag MD [address] [place] [address] Transplant Physician Transplant Surgery 12/02/20 Lee Ellsi MD [address] [place] [address] Transplant Physician Transplant Surgery 12/02/20 Cici Wiley [id number] Surgical Navigator Transplant 12/02/20 Aleksandra Mensah, ROBBY [facility] [address] [place] [address] Surgical Navigator Transplant Surgery 02/15/21 Josie Moseley [address] [place] [address] Grain Merchandising Manager 04/13/24 04/13/25 documented as of this encounter
--- OUTSIDE RECORDS SUMMARY | 2025-06-14 15:27 | XMS_ITS | Encounter Summary ---
Author Organization Healthcare Address [address] [facility] [place] [address] Care Team Providers Care Jewelry Salesperson Name Role Phone Terry Ag MD Unavailable Lee Ellis MD Unavailable [phone] Cici Wiley Unavailable Unavailable Jarvis Bennett MD Primary Care Provider [phone] Aleksandra Mensah RN Unavailable Unavailable Octaviano Cabrera Primary Care Provider [phone] Josie Moseley Unavailable [phone] Encounter Details Date Type Department Care Team (Late st Contact Info) Description 02/20/2021 Lab Requisition [facility] [address] [place] [address] Janes Harrell MD [address] [facility] [facility] [address] [place] [address] Kidney transplant failure Social History [...] Encounters Date Type Department Care Team (Late Contact Info) Description 09/14/2025 12:20 PM EST [facility] [address] [place] [address] Preeti Gomez MD [address] [place] [address] documented as of this encounter Procedures Procedure Name Priority Date/Time Associated Diagnosis Comments HLA ANTIBODY TESTING (LSA) Routine 02/18/2021 10:25 AM EDT Kidney transplant failure documented in this encounter Results * HLA Antibody Testing (LSA) (02/18/2021 10:25 AM EDT) Blood Venous blood specimen / Unknown 02/18/2021 10:25 AM EDT 02/20/2021 12:24 PM EDT us Janes Harrell MD LAB BLOOD ORDERABLES Final Res ult [facility] [address] documented in this encounter Visit Diagnoses Diagnosis Kidney transplant failure Complications of transplanted kidney documented in this encounter Additional Health Concerns Infection Onset Date Last Indicated Resolved Time 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 COVID-19 Rule-Out 08/12/2021 08/12/2021 08/13/2021 1:52 AM EST COVID 19 (Confirmed) Comment:[facility] has contacted the patient regarding their positive COVID-19 test. Patient instructed that the local Health Dept. will be contacting them with a quarantine notice and to discuss contact tracing and should remain at home/isolated until notified. Patient was educated that if symptoms progress and they become short of air to proceed to the nearest ED. [facility] Otm Consultant: Shelley Manzo 08/12/2021 08/12/202109/02 5:23 AM EST COVID-19 Rule-Out 09/24/2021 09/24/2021 09/24/2021 6:17 PM EDT Assessment Noted Time A fall risk assessment has been complete d for the patient 12/20/2020 2:48 PM EDT documented as of this encounter Care Teams Jewelry Salesperson Relationship Specialty Start Date End Date Jarvis Bennett MD [address] [place] [address] PCP - General 12/20/20 08/11/21 Octaviano Cabrera PA [address] [place] [address] PCP - General Internal Medicine 08/12/21 02/26/25 Terry Ag MD [address] [place] [address] Transplant Physician Transplant Surgery 12/02/20 Lee Ellis MD [address] [place] [address] Transplant Physician Transplant Surgery 12/02/20 Cici Wiley [id number] Surgical Navigator Transplant 12/02/20 Aleksandra Mensah RN [facility] [address] [place] [address] Surgical Navigator Transplant Surgery 02/15/21 Josie Moseley [address] [place] [address] Wire Preparation Machine Tender 04/13/24 04/13/25 documented as of this encounter
--- OUTSIDE RECORDS SUMMARY | 2025-06-14 15:27 | XMS_ITS | Encounter Summary ---
Author Organization Healthcare Address [address] [place] [address] Care Team Providers Care Principal Ios Developer Name Role Phone Terry Ag MD Unavailable Lee Ellis MD Unavailable [phone] Cici Wiley Unavailable Unavailable Jarvis Bennett MD Primary Care Provider [phone] Aleksandra Mensah RN Unavailable Unavailable Octaviano Cabrera Primary Care Provider [phone] Josie Moseley Unavailable [phone] Encounter Details Date Type Department Care Team (Late st Contact Info) Description 06/25/2021 Lab Requisition [facility] [address] [place] [address] Janes Harrell MD [address] [facility] [address] [place] [address] Kidney transplant failure; Awaiting organ transplant status Social History Tobacco Use Types Packs/Day Years [...] 12:20 PM EST Office Visit [facility] Endocrinology [address] [place] [address] Preeti Gomez MD [address] [place] [address] documented as of this encounter Procedures Procedure Name Priority Date/Time Associated Diagnosis Comments HLA ANTIBODY TESTING (LSA) Routine 06/24/2021 8:00 AM EST Kidney transplant failure Awaiting organ transplant status documented in this encounter Results * HLA Antibody Testing (LSA) (06/24/2021 8:00 AM EST) Blood Venous blood specimen / Unknown 06/24/2021 8:00 AM EST 06/25/2021 11:55 AM EST us Janes Harrell MD LAB BLOOD ORDERABLES Final Res ult Performing Organization Address City/State/[facility] Co de Phone Number [facility] [address] documented in this encounter Visit Diagnoses Diagnosis Kidney transplant failure Complications of transplanted kidney Awaiting organ transplant status documented in this encounter Additional Health Concerns Infection Onset Date Last Indicated Resolved Time 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 COVID-19 Rule-Out 08/12/2021 08/12/2021 08/13/2021 1:52 AM EST COVID 19 (Confirmed) Comment:[facility] has contacted the patient regarding their positive COVID-19 test. Patient instructed that the local Health Dept. will be contacting them with a quarantine notice and to discuss contact tracing and should remain at home/isolated until notified. Patient was educated that if symptoms progress and they become short of air to proceed to the nearest ED. [facility] Traffic Warehouse Supervisor: Shelley Manzo 08/12/2021 08/12/202109/02 5:23 AM EST COVID-19 Rule-Out 09/24/2021 09/24/2021 09/24/2021 6:17 PM EDT Assessment Noted Time A fall risk assessment has been complete d for the patient 12/20/2020 2:48 PM EDT documented as of this encounter Care Teams Principal Ios Developer Relationship Specialty Start Date End Date Jarvis Bennett MD [address] [place] [address] PCP - General 12/20/20 08/11/21 Octaviano Cabrera PA [address] [place] [address] PCP - General Internal Medicine 08/12/21 02/26/25 Terry Ag MD [address] [place] [address] Transplant Physician Transplant Surgery 12/02/20 Lee Ellis MD [address] [place] [address] Transplant Physician Transplant Surgery 12/02/20 Cici Wiley [id number] Surgical Navigator Transplant 12/02/20 Aleksandra Mensah, ROBBY [facility] [address] [place] [address] Surgical Navigator Transplant Surgery 02/15/21 Josie Moseley [address] [place] [address] Laboratory Cureman 04/13/24 04/13/25 documented as of this encounter
--- OUTSIDE RECORDS SUMMARY | 2025-06-14 15:27 | XMS_ITS | Encounter Summary ---
Author Organization Healthcare Address [address] [place] [address] Care Team Providers Care Infrastructure Architect Name Role Phone Terry Ag MD Unavailable Lee Ellis MD Unavailable [phone] Cici Wiley Unavailable Unavailable Jarvis Bennett MD Primary Care Provider [phone] Aleksandra Mensah RN Unavailable Unavailable Octaviano Cabrera Primary Care Provider [phone] Josie Moseley Unavailable [phone] Encounter Details Date Type Department Care Team (Late st Contact Info) Description 01/25/2021 Lab Requisition [facility] [address] [place] [address] Janes Harrell MD [address] [facility] [address] [place] [address] Kidney transplant failure Social History [...] have Coronavirus / COVID-19? No / Unsure 01/15/2021 5:25 AM EDT documented as of this encounter Plan of Treatment Upcoming Encounters Date Type Department Care Team (Late st Contact Info) Description 09/14/2025 12:20 PM EST Office Visit [facility] Endocrinology [address] [place] [address] Preeti Gomez MD [address] [place] [address] documented as of this encounter Procedures Procedure Name Priority Date/Time Associated Diagnosis Comments HLA ANTIBODY TESTING (LSA) Routine 01/23/2021 8:00 AM EDT Kidney transplant failure documented in this encounter Results * HLA Antibody Testing (LSA) (01/23/2021 8:00 AM EDT) Blood Venous blood specimen / Unknown 01/23/2021 8:00 AM EDT 01/25/2021 11:53 AM EDT us Janes Harrell MD LAB BLOOD ORDERABLES Final Res ult [facility] [address] documented in this encounter Visit Diagnoses Diagnosis Kidney transplant failure Complications of transplanted kidney documented in this encounter Additional Health Concerns Infection Onset Date Last Indicated Resolved Time 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 COVID-19 Rule-Out 08/12/2021 08/12/2021 08/13/2021 1:52 AM EST COVID 19 (Confirmed) Comment:[facility] has contacted the patient regarding their positive COVID-19 test. Patient instructed that the local Health Dept. will be contacting them with a quarantine notice and to discuss contact tracing and should remain at home/isolated until notified. Patient was educated that if symptoms progress and they become short of air to proceed to the nearest ED. [facility] Spa Manager: Shelley Manzo 08/12/2021 08/12/202109/02 5:23 AM EST COVID-19 Rule-Out 09/24/2021 09/24/2021 09/24/2021 6:17 PM EDT Assessment Noted Time A fall risk assessment has been complete d for the patient 12/20/2020 2:48 PM EDT documented as of this encounter Care Teams Infrastructure Architect Relationship Specialty Start Date End Date Jarvis Bennett MD [address] [place] [place] [address] PCP - General 12/20/20 08/11/21 Octaviano Cabrera PA [address] [place] [address] PCP - General Internal Medicine 08/12/21 02/26/25 Terry Ag MD [address] [place] [address] Transplant Physician Transplant Surgery 12/02/20 Lee Ellis MD [address] [place] [address] Transplant Physician Transplant Surgery 12/02/20 Cici Wiley [id number] Surgical Navigator Transplant 12/02/20 Aleksandra Mensah RN [facility] [address] [place] [address] Surgical Navigator Transplant Surgery 02/15/21 Josie Moseley [address] [place] [address] Communication Professor 04/13/24 04/13/25 documented as of this encounter
--- OUTSIDE RECORDS SUMMARY | 2025-06-14 15:27 | XMS_ITS | Encounter Summary ---
Author Organization Healthcare Address [address] [facility] [facility] [place] [address] Care Team Providers Care Microsoft Developer Name Role Phone Terry Ag MD Unavailable Lee Ellis MD Unavailable [phone] Cici Wiley Unavailable Unavailable Jarvis Bennett MD Primary Care Provider [phone] Aleksandra Mensah RN Unavailable Unavailable Octaviano Cabrera Primary Care Provider [phone] Josie Moseley Unavailable [phone] Encounter Details Date Type Department Care Team (Late st Contact Info) Description 05/22/2021 Lab Requisition [facility] [address] [place] [address] Janes Harrell MD [address] [facility] [address] [place] [address] Kidney transplant failure Social History [...] Description 09/14/2025 12:20 PM EST [facility] [address] [place] [address] Preeti Gomez MD [address] [place] [address] documented as of this encounter Procedures Procedure Name Priority Date/Time Associated Diagnosis Comments HLA ANTIBODY TESTING (LSA) Routine 05/20/2021 8:00 AM EST Kidney transplant failure documented in this encounter Results * HLA Antibody Testing (LSA) (05/20/2021 8:00 AM EST) Blood Venous blood specimen / Unknown 05/20/2021 8:00 AM EST 05/22/2021 11:53 AM EST us Janes Harrell MD LAB BLOOD ORDERABLES Final Res ult Performing Organization Address City/State/[facility] Co de Phone Number [facility] [address] documented in this encounter Visit Diagnoses Diagnosis Kidney transplant failure Complications of transplanted kidney documented in this encounter Additional Health Concerns Infection Onset Date Last Indicated Resolved Time 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 COVID-19 Rule-Out 08/12/2021 08/12/2021 08/13/2021 1:52 AM EST COVID 19 (Confirmed) Comment:[facility] has contacted the patient regarding their positive COVID-19 test. Patient instructed that the local Health Dept. will be contacting them with a quarantine notice and to discuss contact tracing and should remain at home/isolated until notified. Patient was educated that if symptoms progress and they become short of air to proceed to the nearest ED. [facility] Senior Manager Creative Services: Shelley Manzo 08/12/2021 08/12/202109/02 5:23 AM EST COVID-19 Rule-Out 09/24/2021 09/24/2021 09/24/2021 6:17 PM EDT Assessment Noted Time A fall risk assessment has been complete d for the patient 12/20/2020 2:48 PM EDT documented as of this encounter Care Teams Microsoft Developer Relationship Specialty Start Date End Date Jarvis Bennett MD [address] [place] [address] PCP - General 12/20/20 08/11/21 Octaviano Cabrera PA [address] [place] [phone] PCP - General Internal Medicine 08/12/21 02/26/25 Terry gA MD [address] [place] [address] Transplant Physician Transplant Surgery 12/02/20 Lee Ellis MD [address] [place] [address] Transplant Physician Transplant Surgery 12/02/20 Cici Wiley [id number] Surgical Navigator Transplant 12/02/20 Aleksandra Mensah, RN [facility] [address] [place] [id number] Surgical Navigator Transplant Surgery 02/15/21 Josie Moseley [address] [place] [address] Butadiene Converter Operator 04/13/24 04/13/25 documented as of this encounter
--- OUTSIDE RECORDS SUMMARY | 2025-06-14 15:27 | XMS_ITS | Encounter Summary ---
Author Organization Healthcare Address [address] [place] [address] Care Team Providers Care [employer] Account Assistant Name Role Phone Terry Ag MD Unavailable Lee Ellis MD Unavailable [phone] Cici Wiley Unavailable Unavailable Aleksandra Mensah RN Unavailable Unavailable Octaviano Cabrera Primary Care Provider [phone] Jsoie Moseley Unavailable [phone] Encounter Details Date Type Department Care Team (Late st Contact Info) Description 08/28/2021 Lab Requisition [facility] [address] [place] [address] Janes Harrell MD [address] [facility] [address] [place] [address] Awaiting organ transplant status; Kidney transplant failure Social History Tobacco Use [...] have Coronavirus / COVID-19? No / Unsure 08/12/2021 8:30 PM EST documented as of this encounter Plan of Treatment Upcoming Encounters Date Type Department Care Team (Late st Contact Info) Description 09/14/2025 12:20 PM EST Office Visit [facility] Endocrinology [address] [place] [address] Preeti Gomez MD [address] [place] [address] documented as of this encounter Procedures Procedure Name Priority Date/Time Associated Diagnosis Comments HLA ANTIBODY TESTING (LSA) Routine 08/26/2021 8:00 AM EST Awaiting organ transplant status Kidney transplant failure documented in this encounter Results * HLA Antibody Testing (LSA) (08/26/2021 8:00 AM EST) Blood Venous blood specimen / Unknown 08/26/2021 8:00 AM EST 08/28/2021 12:12 PM EST us Janes Harrell MD LAB BLOOD ORDERABLES Final Res ult [facility] [address] documented in this encounter Visit Diagnoses Diagnosis Awaiting organ transplant status Kidney transplant failure Complications of transplanted kidney documented in this encounter Additional Health Concerns Infection Onset Date Last Indicated Resolved Time 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 Patient instructed that the local Health Dept. will be contacting them with a quarantine notice and to discuss contact tracing and should remain at home/isolated until notified. Patient was educated that if symptoms progress and they become short of air to proceed to the nearest ED. [facility] Driver/Guide: Shelley Manzo 08/12/2021 08/12/202109/02 5:23 AM EST COVID-19 Rule-Out 09/24/2021 09/24/2021 09/24/2021 6:17 PM EDT Assessment Noted Time A fall risk assessment has been complete d for the patient 12/20/2020 2:48 PM EDT documented as of this encounter Care Teams Commercial Lines Account Assistant Relationship Specialty Start Date End Date Octaviano Cabrera PA [address] [place] [address] PCP - General Internal Medicine 08/12/21 02/26/25 Terry Ag MD [address] [place] [phone] Transplant Physician Transplant Surgery 12/02/20 Lee Ellis MD [address] [place] [phone] Transplant Physician Transplant Surgery 12/02/20 Cici Wiley [id number] Surgical Navigator Transplant 12/02/20 Aleksandra Mensah, RN [facility] [address] [place] [address] Surgical Navigator Transplant Surgery 02/15/21 Josie Moseley [address] [place] [address] Restaurant Kitchen And Service Manager 04/13/24 04/13/25 documented as of this encounter
--- OUTSIDE RECORDS SUMMARY | 2025-06-14 15:27 | XMS_ITS | Encounter Summary ---
Author Organization Healthcare Address [address] [place] [address] Care Team Providers Care Smoking Pipe Coater Name Role Phone Terry Ag MD Unavailable Lee Ellis MD Unavailable [phone] Cici Wiley Unavailable Unavailable Jarvis Bennett MD Primary Care Provider [phone] Aleksandra Mensah RN Unavailable Unavailable Octaviano Cabrera Primary Care Provider [phone] Josie Moseley Unavailable [phone] Encounter Details Date Type Department Care Team (Late st Contact Info) Description 06/29/2020 Legacy OTTR Encounter Historical OTTR [address] [place] [address] Josie Barrera [address] Social History Tobacco Use Types Packs/Day Years Used Date Smoking Tobacco: Never Assessed Comments Unknown Sex and Gender Information Value Date Recorded Sex Assigned at Female 07/25/2021 7:30 AM EST Legal Sex Female 7:46 PM EDT Gender Identity Female 07/25/2021 7:30 AM EST Sexual Orientation Not on file documented as of this encounter Miscellaneous Notes * Progress Notes - Provider, Cleo, - 11/19/2020 9:56 AM EDT DOS 12/20/2020 Kidney transplant eval annual Mandible Panorex 04899, 87019 Spect-Multiple Studies auth # [id number] valid 11/19/2020-01/18/2021 Echo-Complete [id number] valid 11/19/2020-01/18/2021 Stress ECG (Lexiscan) 63257 NPR updating IAuth and nurse. * Progress Notes - Hallie RamirezGrassroots Organizer - 11/13/2020 8:31 AM EDT Mailed 12/20/2020 annual appt. letter/sched., stress inst., annual questionnaire and maps to pt. Note to TH of sched. annual date. * Progress Notes - ProviderCleo MD - 11/07/2020 1:23 PM EDT Dialysis request form has been faxed to dialysis center. * Progress Notes - Hallie RamirezGrassroots Organizer - 10/26/2020 5:21 PM EDT Called pt., confirmed pre-kidney annual appt's on: ., 12/20/2020, reg @0830. Pt. states she saw appt's on her Mychart, adv. of card. [facility] and to bring one support person on this day. She verified no change to address and is aware she will rec. appt. ppw in the mail. Will mail ppw. * Progress Notes - Hallie RamirezGrassroots Organizer - 10/17/2020 8:13 AM EDT Pt. sched. for kidney annual appt's on: ., 12/20/2020, reg @0830 in card. Will call pt. to confirm appt. date/time. * Progress Notes - Martina Raymundo RN - 09/18/2020 4:57 PM EST Req form faxed to dialysis center * Progress Notes - Martina Raymundo RN - 09/18/2020 4:56 PM EST Please schedule December; pt will need pap smear * Progress Notes - Martina Raymundo RN - 09/18/2020 4:55 PM EST Please have lab supplies sent to dialysis center: [place] [address] (p)[phone] * Progress Notes - Martina Raymundo RN - 08/14/2020 3:12 PM EST Current selection criteria and SRTR data (July 2020 release) mailed to patient's home Aug 14, 2020. * Progress Notes - Cleo Adams MD - 08/10/2020 9:09 AM EST Dialysis Request Form has been faxed to the dialysis center * Progress Notes - James Grassroots Organizer - 06/29/2020 11:28 AM EST Reactivation/UNOS letter mailed to pt. CC'd dialysis center. Referring MD is [facility] Jair DU. Copies to compliance. * Progress Notes - Martina Raymundo RN - 06/28/2020 2:16 PM EST Pt reactivated in unet; please send reactivation letters * Progress Notes - Martina Raymundo RN - 06/28/2020 2:13 PM EST Contacted pt who was d/c home yesterday from . Ms. Merchant says that they think she was not getting enough fluid off at dialysis center. She states they think she lost weight after her nephrectomy and that was not taken into consideration. She is having no difficulty breathing and no longer on oxygen. She says the dialysis center is aware of the situation. Advised she would be reactivated ion the waitlist. * Progress Notes - Hallie RamirezGrassroots Organizer - 06/25/2020 10:13 AM EST Inactivation/UNOS letter mailed to pt. CC'd dialysis center. Referring MD is internal JAIR DU. Copies to compliance. * Progress Notes - Martina Raymundo RN - 06/25/2020 8:04 AM EST Pt inactivated in unet due to hospital admission. Please send inactivation letters. * Progress Notes - Martina Raymundo RN - 06/25/2020 7:58 AM EST Pt admitted to 06/24 for SOB with nonproductive cough worsening over 2 weeks. N/V last several days with outside covid test negative. Imaging shows pulm congestion with no PE. Pt was subsequently intubated for likely HTN emergency with flash pulm edema. Inpt covid result negative. * Progress Notes - Hallie RamirezGrassroots Organizer - 06/21/2020 8:02 AM EST Reactivation/UNOS letter mailed to pt. CC'd dialysis center. Copies to compliance. * Progress Notes - Martina Raymundo RN - 06/20/2020 3:43 PM EST Pt reactivated in unet; she has been notified. Please send reactivation letters * Progress Notes - Cici Wiley - 06/14/2020 3:09 PM EST Ms. Merchant was seen in clinic today by Dr. Ag ([facility]) - her elizabeth were removed and she is healing well. Per Dr. Ag, follow up PRN. I spoke with Ms. Merchant and let her know to give us a call if she has any issues with her incision. I told her that the next time that i would see her would be with her AVF follow up appointment. Note to Naye for update. * Progress Notes - Tawana Tubbs - 05/29/2020 12:44 PM EST Called , confirmed w/ Ms. Merchant she is scheduled 06/14/20 10:30 am arrival time for 3wk hosp dc S/P Surgical Nephrectomy fu labs/MBS. Appt reminder mailed. * Progress Notes - Cici Wiley - 05/28/2020 5:23 PM EST Note to Tawana: Spoke with Dr. Ag this afternoon to confirm that he could see Ms. Merchant this . Dr. Ag would like to see her three weeks post surgery which was on 05/22. Can you scheduleher for the week after Thanksgi? * Progress Notes - Cleo Adams MD - 05/28/2020 9:26 AM EST Faxed clinic note to Danielle at [facility] for listing renewal. * Progress Notes - Cici Wiley - 05/25/2020 10:06 AM EST Received a message from Suzette that Ms. Merchant needs to be seen Thursday or of next week by Dr. Ellis. Ask Suzette if it should be Dr. Ag since he performed Ms. Merchant nephrectomy. She said that it was per Dr. Ellis that she see him. Scheduled for 05/31 @ 1130 for labs and Surgeon @ 1240. Note to Martina for update * Progress Notes - Cleo Adams MD - 05/24/2020 6:37 AM EST DOS 05/22/2020 Transplant Nephrectomy and Ureteral Stent Removal (DX: N18.6, z94.0, T86.891 CPT: 12419, 85095). This is booked as an OPDA. [facility] auth # [id number] valid 05/22/2020-07/22/2020 updating IAuth and nurse. * Progress Notes - Cleo Adams MD - 05/21/2020 1:03 PM EST DOS 05/22/2020 Transplant Nephrectomy and Ureteral Stent Removal (DX: N18.6, z94.0, T86.891 CPT: 43191, 28685). This is booked as an OPDA. Pt has [facility], I'm calling now to start the authorization. I see the original note where it noted me, but I was not added to the list of receipents. I'm doing my best to get this approved for today. Received notifcation from Angle Oliver that we need an auth for this. Updating IAuth and nurse. Faxed request to [phone] and [phone] as urgent [facility] will follow up for status, * Progress Notes - ProviderCleo MD - 05/21/2020 11:50 AM EST DOS 05/22/2020 Transplant Nephrectomy and Ureteral Stent Removal (DX: N18.6, z94.0, T86.891 CPT: 41569, 56386). This is booked as an OPDA. Pt has [employer], I'm calling now to start the authorization. I see the original note where it noted me, but I was not added to the list of receipents. I'm doing my best to get this approved for today. Received notifcation from Angle Oliver that we need an auth for this. Updating IAuth and nurse. * Progress Notes - Cici Wiley - 05/18/2020 3:37 PM EST Per Laurent Rosales's request called and confirmed with Guerline that it is one donor kidney on the right side of her body that needs to be removed. I let Guerline know that I was told that she would be able to have the kidney once pathology could test the kidney for disease. I let her knowthat, I was told that it could be released to her or to a insurance healthcare representative of the home that wo uld cremate the kidney. * Progress Notes - Aleksandra Mensah RN - 05/11/2020 1:45 PM EDT Binder for 05/22 surgery taken to pre-op. * Progress Notes - Cici Wiley - 05/10/2020 6:[address] Jang requested that Dr. Ag see Ms. Merchant for a transplant nephrology consult - patient scheduled for nephrectomy on 05/22 @ 0730 with an arrival time of 0530. PICIS - Needs to be updated: Pt has requested to have the kidney not disposed of due to it being the kidney of her brother. She received the kidney after he passed and would like to have the kidney cremated. I have emailed Yani Raza and Phuc asking for their advice on how we can accomplish this. Binder made and taken to [facility] to be done at [facility] on 05/18 - referral sent Email sent to Urology to confirm urologist Referral open in OTTR Note to Eder for pre-auth of Ms. Merchant Transplant Nephrectomy and Ureteral Stent Removal (DX: N18.6, z94.0, T86.891 CPT: 62374, 59001). This is booked as an OPDA. Note to Naye Lake and Martina for update. * Progress Notes - Ashley Smith RN - 05/10/2020 11:[address] Jang saw pt in clinic and is recommending patient to have a transplant nephrectomy. Dr. Ag to see patient *addendum: patients brother was a direct donation after he was killed in a car accident. Patient wants to keep and cremate kidney after it is removed. * Progress Notes - Nikki Mejia RN - 05/10/2020 10:43 AM EDT Pt seen in clinic by Dr. 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 - no benefit from doing steroids now given the absence of current symptoms. - on the waiting list inactive. continue dialysis as scheduled with her nephrology. RTC as needed. * Progress Notes - Hallie RamirezGrassroots Organizer - 05/07/2020 4:27 PM EDT Tx nephrology consultation [place] invite sent to both coord. and Dr. Adkins for appt. on: ., 05/10/2020, @1200. * Progress Notes - Hallie RamirezGrassroots Organizer - 05/04/2020 2:04 PM EDT Called pt. informed we have her sched. for lab/txp neph. visit, next avail. on: .,05/10/2020, reg @1030 in Txp, pt. aware to hold tacro, if needed. She confirms appt. date/time and no changes to address on file. Priority mailed 05/10/2020 appt. letter/sched., w/map to pt. USPS T/N: 9114 [id number] [phone] * Progress Notes - Hallie RamirezGrassroots Organizer - 05/04/2020 12:11 PM EDT Referral for pt. to be sched. w/neph. clinic sent to [facility] for assistance. 2nd email sent requesting to sched. on a , d/t pt's dialysis schedule. Will update once notified, on how to sched. appt. w/labs. * Progress Notes - Martina Raymundo RN - 05/02/2020 3:51 PM EDT Please schedule clinic appt with transplant nephrology (with labs) * Progress Notes - Martina Raymundo RN - 05/02/2020 12:00 PM EDT Pt notified that she will need to be scheduled for a visit with txp nephrology to assess UTI vs graft pain for possible txp kidney removal. * Progress Notes - Cici Wiley - 04/24/2020 12:58 PM EDT Note to Martina - Dr. Yap called wanting to speak with someone in regards to her clearance for candidacy due to her recurrent UTIs? Gave her your contact information and transferred her to your phone. * Progress Notes - ProviderCleo MD - 04/16/2020 3:16 PM EDT DOS 04/25/2020 Fistulogram 42632 Pt has [employer] [facility] [place] NPR updating IAuth and nurse. * Progress Notes - Aleksandra Mensah RN - 04/16/2020 2:58 PM EDT Received message from Eileen Paredes on Thursday requesting fistulogram Pt. scheduled for fistulogram on 04/25, 6:30am arrival, NPO after MN, hold blood thinners x 5 days prior, have a box truck driver. Pt. confirmed and knows to call w/ any issues prior to appointment. Jeaneth edyd/ IR says she will arrange for COVID-19 test. -Note to Eder for precert. -Note to Cici for update. * Progress Notes - Ashley Smith RN - 04/06/2020 1:30 PM EDT HOSPITAL COURSE: Hospital Course ED labs showed Hyperkalemia to 6.2. She was given Lokelma in anticipation of Dialysis on 04/02. Patient started on ceftriaxone for management of pyelonephritis on 04/02. She was was imaged with non-conCT which showed no signs of intraabdominal abscess. Renal US showed stable hydronephrosis. Subsequently admitted and followed by Medicine, Renal and Urology. Hospital stay was marked by progressive clinical improvement following hemodialysis and daily Ceftriaxone treatment. Transitioned to oral Cefdinir 300mg on 04/04 in anticipation of discharge. On 04/05/20, underwent successful Cytoscopy with ureteral stent placement by urology. Following the procedure she was asymptomatic. Recommendations: - f/u with urology in 2 weeks - Continue Cefdinir 300mg with the last dose 04/11 for a 10 day course - Patient instructed to return to ED if she experiences fever, acute sob, or chest/abdominal pain, or if she worsens in any way DIAGNOSTIC AND PROCEDURAL EVENTS: - 04/05 cystoscopy with ureteral stent placement * Progress Notes - Jenifer Gonzalez - 04/04/2020 1:57 PM EDT Current selection criteria and SRTR data (February 2020 release) mailed to patient's home. * Progress Notes - Ashley Smith RN - 04/03/2020 8:27 AM EDT per [facility], patient is admitted for abdominal pain. * Progress Notes - Ashley Smith - 03/07/2020 2:02 PM EDT called pt to make her aware of committee decision, she said she has not heard form SOFTWARE APPLICATION TESTER about her pathology. Told her the results were abnormal and she needed to follow up with them and see what type of survillence they want to do. Patient aware to keep coordinator updated. She confirmed understanding. * Progress Notes - Ashley Smith - 03/06/2020 9:13 AM EDT note sent to costume specialist, re: please review SOFTWARE APPLICATION TESTER pathology A. THIN PREP (CERVICAL/VAGINAL): LOW GRADE SQUAMOUS INTRAEPITHELIAL LESION. SATISFACTORY FOR EVALUATION; ENDOCERVICAL/TRANSFORMATION ZONE COMPONENT ABSENT/INSUFFICIENT. * Progress Notes - Cici Wiley - 02/02/2020 2:27 PM EDT Ms. Merchant was seen in clinic today by Dr. Ellis (T) - patient is doing well and dialyzing MWF. Dr. Ellis would like for her to follow up in 6 months with a fistulogram. - NFU set to get scheduled * Progress Notes - Martina Raymundo - 01/27/2020 1:46 PM EDT Please fax imaging reports and lab results from January 26, 2020 to Txp (f) [phone] * Progress Notes - Beth Das - 01/26/2020 3:45 PM EDT SW annual updated completed 01/26/20 with documentation in [facility]. Pt continues to meet psychosocial criteria for listing. * Progress Notes - Martina Raymundo - 01/26/2020 3:35 PM EDT Hep C consent signed; unet updated * Progress Notes - Tawana Tubbs - 01/26/2020 9:51 AM EDT Called , confirmed w/ Ms. Merchant she is scheduled 02/02/20 9am arrival time for HDGD/AA * Progress Notes - ProviderCleo MD - 01/04/2020 8:24 AM EDT DOS 02/02/2020 Hemodialysis Graft Duplex 78270 Pt has [employer] [place] NPR updating IAuth and nurse. * Progress Notes - Tawana Tubbs - 12/28/2019 12:26 PM EDT Called , unable to LVM Ms. Merchant is scheduled 02/02/20 9am arrival time for HDGD/AA. Appt sched mailed. Requested confirmation call. Note to for rescheduled precert: 02/02/20 HDGD 05555 * Progress Notes - James Grassroots Organizer - 12/27/2019 1:04 PM EDT Called urology, spoke w/Liliana, she states next avail. Tue/Anne Marie appt. is: Tues., 01/31/2020, 1030 appt. time. Called pt., pt. confirms appt. on: Tues., 01/31/2020, 1030 in URO. Mailed 01/31/2020 [facility]M appt. reminder w/map. Order updated in [facility]. * Progress Notes - Martina Raymundo - 12/27/2019 8:44 AM EDT Please check with Urology clinic. We scheduled pt to see them in November and she was bumped . I do notsee that they have rescheduled. * Progress Notes - Hallie RamirezGrassroots Organizer - 12/21/2019 11:23 AM EDT Mailed 01/26/2020 annual appt. letter/sched., stress inst., annual questionnaire and maps. * Progress Notes - Hallie RamirezGrassroots Organizer - 12/13/2019 11:03 AM EDT Called urology, on hold for 8 min., automated message states to LVM, LVM requesting return call to r/s pt's urology consultation that is still bumped in APM, left pt's name//MRN and left my contact number. Called pt., to confirm annual appt's on: Thur., 01/26/2020, reg @0830 in card., pt. advised of card.inst., to bring only one support person. Pt. confirms appt. date/time and verified no change to listed address. Informed pt., that I did call urology and will be in touch once her urology appt. has been r/s'd. She verb. understanding. Will mail appt. ppw. * Progress Notes - Hallie RamirezGrassroots Organizer - 11/21/2019 7:34 AM EDT Per APM, pt's urology appt. has been bumped. Will call today to see when urology will be able to r/s pt's urology consult. Pt. sched. for annual appt's on: Thur,. 01/26/2020, reg @0830 in card. Will call pt. once urology can give update on when they will r/s pt's appt. * Progress Notes - Martina Raymundo - 10/10/2019 10:58 AM EDT Please schedule annual appt; pt will need pap smear * Progress Notes - James Grassroots Organizer - 09/29/2019 2:23 PM EDT Called urology, spoke w/Adilene, she states they have been advised to book appt's from 8 wks out. They are booking in to November, informed her of above notes and reason clinically indicated. Pt. is currently booked for urology consult on: ., 11/29/2019, @1030 in [facility]. Pt. to be informed that she can call to see if she can be worked in for an earlier date, for a r/s or cancellation. Will inform pt. of that when calling to confirm appt. date/time. * Progress Notes - Martina Raymundo - 09/28/2019 2:11 PM EDT Attempt to contact pt regarding committee decision to leave inactive until f/u with urology; unableto LVM. Please schedule with [facility] urology for chonic UTIs. * Progress Notes - Martina Raymundo - 09/22/2019 2:52 PM EDT Contacted pt. She is no longer on antibiotics and all symptoms have cleared. She did question a possible f/u with urology as she states her UTIs are very frequent. Advised I will discuss in committeenext week and call her with recommendation. * Progress Notes - Martina Raymundo - 08/22/2019 1:51 PM EST Current selection criteria and SRTR data (July 2019 release) mailed to patient's home Aug 20, 2019. * Progress Notes - Hallie RamirezGrassroots Organizer - 08/15/2019 9:19 AM EST Inactivation/UNOS letter mailed to pt. CC'd dialysis center. Copies filed in compliance. * Progress Notes - Martina Raymundo - 08/15/2019 8:50 AM EST Pt admitted to [facility] for possible UTI and diarrhea x several days. Inactived in unet; please send inactivation letter * Progress Notes - Aleksandra Mensah RN - 08/11/2019 1:14 PM EST Pt. seen in clinic today by Dr. Ellis w/ US. Plan is to f/u in 6 months w/ US and surgeon visit, call w/ any questions or concerns prior to that time. Orders in [facility]. -Note to to schedule. -Note to RG for update. * Progress Notes - ProviderCleo MD - 07/15/2019 9:04 AM EST DOS 08/11/2019 hemodialysis graft duplex 52992 Pt has [employer] [facility] updating IAuth and nurse. documented in this encounter Plan of Treatment Upcoming Encounters Date Type Department Care Team (Late st Contact Info) Description 09/14/2025 12:20 PM EST Office Visit [facility] Endocrinology [address] [place] [id number] Preeti Gomez MD [address] [place] [address] documented as of this encounter Procedures Procedure Name Priority Date/Time Associated Diagnosis Comments OTTR LAB RESULTS (MANUAL) Routine 06/27/2020 2:22 AM EST OTTR LAB RESULTS (MANUAL) Routine 06/26/2020 3:01 AM EST OTTR LAB RESULTS (MANUAL) Routine 06/25/2020 3:31 AM EST OTTR LAB RESULTS (MANUAL) Routine 06/24/2020 12:10 AM EST OTTR LAB RESULTS (MANUAL) Routine 06/14/2020 10:49 AM EST OTTR LAB RESULTS (MANUAL) Routine 05/25/2020 4:59 AM EST OTTR LAB RESULTS (MANUAL) Routine 05/24/2020 5:41 AM EST OTTR LAB RESULTS (MANUAL) Routine 05/23/2020 5:19 AM EST OTTR LAB RESULTS (MANUAL) Routine 05/22/2020 5:20 PM EST OTTR LAB RESULTS (MANUAL) Routine 04/25/2020 6:45 AM EDT OTTR LAB RESULTS (MANUAL) Routine 04/05/2020 2:23 AM EDT OTTR LAB RESULTS (MANUAL) Routine 04/04/2020 3:24 AM EDT OTTR LAB RESULTS (MANUAL) Routine 04/03/2020 4:37 AM EDT OTTR LAB RESULTS (MANUAL) Routine 04/02/2020 7:00 AM EDT OTTR LAB RESULTS (MANUAL) Routine 04/02/2020 2:52 AM EDT OTTR LAB RESULTS (MANUAL) Routine 04/02/2020 12:18 AM EDT OTTR LAB RESULTS (MANUAL) Routine 04/01/2020 10:24 PM EDT OTTR LAB RESULTS (MANUAL) Routine 04/01/2020 5:24 PM EDT OTTR LAB RESULTS (MANUAL) Routine 08/21/2019 8:16 AM EST OTTR LAB RESULTS (MANUAL) Routine 08/19/2019 1:19 PM EST OTTR LAB RESULTS (MANUAL) Routine 08/17/2019 2:39 AM EST OTTR LAB RESULTS (MANUAL) Routine 08/16/2019 3:59 AM EST OTTR LAB RESULTS (MANUAL) Routine 08/15/2019 5:02 AM EST OTTR LAB RESULTS (MANUAL) Routine 07/07/2019 8:26 PM EST documented in this encounter Results * OTTR LAB RESULTS (MANUAL) (06/27/2020 2:22 AM EST) External Estimated GFR 4.42 EXTERNAL LAB 06/27/2020 2:22 AM EST Narrative EXTERNAL LAB - 06/27/2020 4:31 AM EST Automated LAB Interface us Historical Provider LAB BLOOD ORDERABLES Final R esult EXTERNAL LAB * OTTR LAB RESULTS (MANUAL) (06/26/2020 3:01 AM EST) External Estimated GFR 6.81 EXTERNAL LAB 06/26/2020 3:01 AM EST Narrative EXTERNAL LAB - 06/26/2020 4:16 AM EST Automated LAB Interface Historical Provider LAB BLOOD ORDERABLES Final R esult Performing Organization Address [facility] de Phone Number EXTERNAL LAB * OTTR LAB RESULTS (MANUAL) (06/25/2020 3:31 AM EST) External Estimated GFR 4.21 EXTERNAL LAB 06/25/2020 3:31 AM EST Narrative EXTERNAL LAB - 06/25/2020 4:32 AM EST Automated LAB Interface Historical Provider LAB BLOOD ORDERABLES Final R esult Performing Organization Address [facility] de Phone Number EXTERNAL LAB * OTTR LAB RESULTS (MANUAL) (06/24/2020 12:10 AM EST) External Estimated GFR 5.67 EXTERNAL LAB 06/24/2020 12:1 0 AM EST Narrative EXTERNAL LAB - 06/24/2020 7:35 AM EST Automated LAB Interface Historical Provider LAB BLOOD ORDERABLES Final R esult Performing Organization Address [facility] de Phone Number EXTERNAL LAB * OTTR LAB RESULTS (MANUAL) (06/14/2020 10:49 AM EST) External Estimated GFR 5.97 EXTERNAL LAB 06/14/2020 10:4 9 AM EST Narrative EXTERNAL LAB - 06/14/2020 11:55 AM EST Automated LAB Interface [facility] Provider LAB BLOOD ORDERABLES Final R esult Performing Organization Address [facility] Co de Phone Number EXTERNAL LAB * OTTR LAB RESULTS (MANUAL) (05/25/2020 4:59 AM EST) External Estimated GFR 3.64 EXTERNAL LAB 05/25/2020 4:59 AM EST Narrative EXTERNAL LAB - 05/25/2020 5:53 AM EST Automated LAB Interface Historical Provider LAB BLOOD ORDERABLES Final R esult Performing Organization Address [facility] de Phone Number EXTERNAL LAB * OTTR LAB RESULTS (MANUAL) (05/24/2020 5:41 AM EST) External Estimated GFR 4.45 EXTERNAL LAB 05/24/2020 5:41 AM EST Narrative EXTERNAL LAB - 05/24/2020 6:28 AM EST Automated LAB Interface Historical Provider LAB BLOOD ORDERABLES Final R esult Performing Organization Address [facility] de Phone Number EXTERNAL LAB * OTTR LAB RESULTS (MANUAL) (05/23/2020 5:19 AM EST) External Estimated GFR 3.92 EXTERNAL LAB 05/23/2020 5:19 AM EST Narrative EXTERNAL LAB - 05/23/2020 6:03 AM EST Automated LAB Interface Historical Provider LAB BLOOD ORDERABLES Final R esult Performing Organization Address [facility] de Phone Number EXTERNAL LAB * OTTR LAB RESULTS (MANUAL) (05/22/2020 5:20 PM EST) External Estimated GFR 4.48 EXTERNAL LAB 05/22/2020 5:20 PM EST Narrative EXTERNAL LAB - 05/22/2020 6:00 PM EST Automated LAB Interface Historical Provider LAB BLOOD ORDERABLES Final R esult Performing Organization Address [facility] de Phone Number EXTERNAL LAB * OTTR LAB RESULTS (MANUAL) (04/25/2020 6:45 AM EDT) Pathologist [facility] External Estimated GFR 3.97 EXTERNAL LAB 04/25/2020 6:45 AM EDT Narrative EXTERNAL LAB - 04/25/2020 7:54 AM EDT Automated LAB Interface Historical Provider LAB BLOOD ORDERABLES Final R esult Performing Organization Address [facility] de Phone Number EXTERNAL LAB * OTTR LAB RESULTS (MANUAL) (04/05/2020 2:23 AM EDT) External Estimated GFR 5.08 EXTERNAL LAB 04/05/2020 2:23 AM EDT Narrative EXTERNAL LAB - 04/05/2020 3:13 AM EDT Automated LAB Interface Historical Provider LAB BLOOD ORDERABLES Final R esult EXTERNAL LAB * OTTR LAB RESULTS (MANUAL) (04/04/2020 3:24 AM EDT) Pathologist [facility] External Estimated GFR 3.68 EXTERNAL LAB 04/04/2020 3:24 AM EDT Narrative EXTERNAL LAB - 04/04/2020 3:56 AM EDT Automated LAB Interface Historical Provider LAB BLOOD ORDERABLES Final R esult Performing Organization Address [facility] Co de Phone Number EXTERNAL LAB * OTTR LAB RESULTS (MANUAL) (04/03/2020 4:37 AM EDT) Pathologist [facility] External Estimated GFR 4.53 EXTERNAL LAB 04/03/2020 4:37 AM EDT Narrative EXTERNAL LAB - 04/03/2020 5:10 AM EDT Automated LAB Interface Historical Provider LAB BLOOD ORDERABLES Final R esult Performing Organization Address [facility] Co de Phone Number EXTERNAL LAB * OTTR LAB RESULTS (MANUAL) (04/02/2020 7:00 AM EDT) Pathologist [facility] External Estimated GFR 3.48 EXTERNAL LAB 04/02/2020 7:00 AM EDT Narrative EXTERNAL LAB - 04/02/2020 7:43 AM EDT Automated LAB Interface Historical Provider LAB BLOOD ORDERABLES Final R esult EXTERNAL LAB * OTTR LAB RESULTS (MANUAL) (04/02/2020 2:52 AM EDT) Pathologist [facility] External Estimated GFR 3.56 EXTERNAL LAB 04/02/2020 2:52 AM EDT Narrative EXTERNAL LAB - 04/02/2020 3:22 AM EDT Automated LAB Interface Historical Provider LAB BLOOD ORDERABLES Final R esult Performing Organization Address [facility] de Phone Number EXTERNAL LAB * OTTR LAB RESULTS (MANUAL) (04/02/2020 12:18 AM EDT) External Estimated GFR 3.61 EXTERNAL LAB 04/02/2020 12:1 8 AM EDT Narrative EXTERNAL LAB - 04/02/2020 2:34 AM EDT Automated LAB Interface Historical Provider LAB BLOOD ORDERABLES Final R esult Performing Organization Address [facility] de Phone Number EXTERNAL LAB * OTTR LAB RESULTS (MANUAL) (04/01/2020 10:24 PM EDT) External Estimated GFR 3.67 EXTERNAL LAB 04/01/2020 10:2 4 PM EDT Narrative EXTERNAL LAB - 04/01/2020 11:09 PM EDT Automated LAB Interface Historical Provider LAB BLOOD ORDERABLES Final R esult Performing Organization Address [facility] de Phone Number EXTERNAL LAB * OTTR LAB RESULTS (MANUAL) (04/01/2020 5:24 PM EDT) External Estimated GFR 3.65 EXTERNAL LAB 04/01/2020 5:24 PM EDT Narrative EXTERNAL LAB - 04/01/2020 6:26 PM EDT Automated LAB Interface Historical Provider LAB BLOOD ORDERABLES Final R esult Performing Organization Address City/[facility]/ZIP Co de Phone Number EXTERNAL LAB * OTTR LAB RESULTS (MANUAL) (08/21/2019 8:16 AM EST) External Estimated GFR 4.60 EXTERNAL LAB 08/21/2019 8:16 AM EST Narrative EXTERNAL LAB - 08/21/2019 10:55 AM EST Automated LAB Interface Historical Provider LAB BLOOD ORDERABLES Final R esult Performing Organization Address [facility] Co de Phone Number EXTERNAL LAB * OTTR LAB RESULTS (MANUAL) (08/19/2019 1:19 PM EST) Pathologist [facility] External Estimated GFR 10.65 EXTERNAL LAB 08/19/2019 1:19 PM EST Narrative EXTERNAL LAB - 08/19/2019 2:14 PM EST Automated LAB Interface Historical Provider LAB BLOOD ORDERABLES Final R esult Performing Organization Address [facility] de Phone Number EXTERNAL LAB * OTTR LAB RESULTS (MANUAL) (08/17/2019 2:39 AM EST) Pathologist [facility] External Estimated GFR 3.61 EXTERNAL LAB 08/17/2019 2:39 AM EST Narrative EXTERNAL LAB - 08/17/2019 3:14 AM EST Automated LAB Interface Historical Provider LAB BLOOD ORDERABLES Final R esult Performing Organization Address [facility] de Phone Number EXTERNAL LAB * OTTR LAB RESULTS (MANUAL) (08/16/2019 3:59 AM EST) Pathologist [facility] External Estimated GFR 5.17 EXTERNAL LAB 08/16/2019 3:59 AM EST Narrative EXTERNAL LAB - 08/16/2019 4:31 AM EST Automated LAB Interface Historical Provider LAB BLOOD ORDERABLES Final R esult Performing Organization Address [facility] de Phone Number EXTERNAL LAB * OTTR LAB RESULTS (MANUAL) (08/15/2019 5:02 AM EST) Pathologist [facility] External Estimated GFR 3.79 EXTERNAL LAB 08/15/2019 5:02 AM EST Narrative EXTERNAL LAB - 08/15/2019 5:58 AM EST Automated LAB Interface Historical Provider LAB BLOOD ORDERABLES Final R esult Performing Organization Address [facility] Co de Phone Number EXTERNAL LAB * OTTR LAB RESULTS (MANUAL) (07/07/2019 8:26 PM EST) External Estimated GFR 3.25 EXTERNAL LAB 07/07/2019 8:26 PM EST Narrative EXTERNAL LAB - 07/07/2019 8:57 PM EST Automated LAB Interface us Historical Provider LAB BLOOD ORDERABLES Final R esult EXTERNAL LAB documented in this encounter Visit Diagnoses Not on filedocumented in this encounter Additional Health Concerns Infection Onset Date Last Indicated Resolved Time Gastrointestinal Rule-Out 05/05/2018 05/05/2018 5:23 AM EDT C. difficile Rule-Out 08/15/2019 08/15/20192020 5:23 AM EDT Gastrointestinal Rule-Out 08/18/2019 08/18/2019 5:23 AM EDT Respiratory Rule-Out 06/24/2020 06/24/2020 021 5:24 AM EDT 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 COVID-19 Rule-Out 08/12/2021 08/12/2021 08/13/2021 1:52 AM EST COVID 19 (Confirmed) Comment:[facility] has contacted the patient regarding their positive COVID-19 test. Patient instructed that the local Health Dept. will be contacting them with a quarantine notice and to discuss contact tracing and should remain at home/isolated until notified. Patient was educated that if symptoms progress and they become short of air to proceed to the nearest ED. [facility] Hatch Boss: Shelley Jovany 08/12/2021 08/12/202109/02 5:23 AM EST COVID-19 Rule-Out 09/24/2021 09/24/2021 09/24/2021 6:17 PM EDT documented as of this encounter Care Teams Smoking Pipe Coater Relationship Specialty Start Date End Date Jarvis Bennett MD [address] [facility] [place] [address] PCP - General 12/20/20 08/11/21 Octaviano Cabrera PA [address] [place] [address] PCP - General Internal Medicine 08/12/21 02/26/25 Terry Ag MD [address] [place] [address] Transplant Physician Transplant Surgery 12/02/20 Lee Ellis MD [address] [place] [address] Transplant Physician Transplant Surgery 12/02/20 Cici Wiley [id number] Surgical Navigator Transplant 12/02/20 Aleksandra Mensah RN [facility] [address] [place] [id number] Surgical Navigator Transplant Surgery 02/15/21 Josie Moseley [address] [facility] [address] [place] [phone] Flooring Helper 04/13/24 04/13/25 documented as of this encounter
--- OUTSIDE RECORDS SUMMARY | 2025-06-14 15:27 | XMS_ITS | Encounter Summary ---
Author Organization Healthcare Address [address] [place] [address] Care Team Providers Care Soccer Ball Assembler Name Role Phone Terry Ag MD Unavailable Lee Ellis MD Unavailable [phone] Cici Wiley Unavailable Unavailable Aleksandra Mensah RN Unavailable Unavailable Octaviano Cabrera Primary Care Provider [phone] Josie Moseley Unavailable [phone] Encounter Details Date Type Department Care Team (Late st Contact Info) Description 04/13/2024 Orders Only Medical Office Building Obstetrics and Gynecology [address] [facility] [place] [address] Josie Doe, RN [facility] [place] [address] Supervision of high risk , antepartum (Primary Dx) Social History Tobacco Use Types [...] afraid of your partner or ex-partner? No 04/14/2024 Within the last year, have y ou been humiliated or emotionally abused in other ways by your partner or ex-partner? No Within the last year, have y ou been kicked, hit, slapped, or otherwise physically hurt by your partner or ex-partner? No 04/14/2024 Within the last year, have y ou been raped or forced to have any kind of sexual activity by your partner or ex-partner? No 04/14/2024 Social Connection and Isolation Panel Answer Date Recorded In a typical week, how many times do you talk on the phone with family, friends, or neighbors? More than three times a week 04/14/2024 How often do you get togethe r with friends or relatives? Twice a week 04/14/2024 How often do you attend chur or judaism services? Never 04/14/2024 Do you belong to any clubs o r organizations such as congregation groups, unions, fraternal or athletic groups, or school groups? No 04/14/2024 How often do you attend meet ings of the clubs or organizations you belong to? Never 04/14/2024 Are you , , di vorced, , never , or living with a partner? Living with partner 04/14/2024 AUDIT-C Answer Date Recorded Q1: How often do you have a drink containing alcohol? Never 04/14/2024 Q2: How many drinks containi ng alcohol do you have on a typical day when you are drinking? Patient does not drink Q3: How often do you have si x or more drinks on one occasion? Never 04/14/2024 Overall Financial Resource Strain (CARDIA) Answe r Date Recorded How hard is it for you to pa y for the very basics like food, housing, medical care, and heating? Not very hard 04/14/2024 PHQ-2 Answer Date Recorded Patient Health Questionnaire-2 Score 0 04/14/2024 [facility] - Occupational Stress Questionnaire Answer Date Recorded Do you feel stress - tense, restless, nervous, or anxious, or unable to sleep at night because your mind is troubled all the time - these days? Not at all 04/14/2024 Exercise Vital Sign Answer Date Recorde d On average, how many days pe r week do you engage in moderate to strenuous exercise (like a brisk walk)? 2 days 04/14/2024 On average, how many minutes do you engage in exercise at this level? 10 min 04/14/2024 Hunger Vital Sign Answer Date Recorded Within the past 12 months, y ou worried that your food would run out before you got the money to buy more. Never true 04/14/20 24 Within the past 12 months, t he food you bought just didn't last and you didn't have money to get more. Never true 04/14/2024 PRAPARE - Transportation Answer Date Re corded In the past 12 months, has l ack of transportation kept you from medical appointments or from getting medications? No 09/2023 In the past 12 months, has l ack of transportation kept you from meetings, work, or from getting things needed for daily living? No 04/14/2024 Housing Stability Vital Sign Answer Feliciano e [...] in a half-way (including now)? No 04/14/2024 [place] Depression Scale Answer Date Recorded [place] Depression Scale Total 0 04/14/2024 The thought of harming myself has occurred to me . Never 04/14/2024 Utilities Answer Date Recorded In the past 12 months has th e electric, gas, oil, or water company threatened to shut off services in your home? No 04/14/2024 Comments No Sex and Gender Information Value Date Recorded Sex Assigned at Female 07/25/2021 7:30 AM EST Legal Sex Female 7:46 PM EDT Gender Identity Female 07/25/2021 7:30 AM EST Sexual Orientation Not on file documented as of this encounter Functional Status * AUDIT-C Score Answer Date of Assessment Author 0 04/14/2024 8:59 AM EDT Lizz Doe RN * Question Answer Date of Assessment Author Q1: How often do you have a drink containing alcohol? Never 04/14/2024 8:59 AM EDT Josie Doe RN Q2: How many drinks containing alcohol do you have on a typical day when you are drinking? Patient does not drink 04/14/2024 8:59 AM FABJosie Elizabeth RN Q3: How often do you have six or more drinks on one occasion? Never 04/14/2024 8:59 AM FABT Josie Doe RN * Over the past 2 weeks, how often have you been bothered by any of the following problems? Question Answer Date of Assessment Author Little interest or pleasure in doing things Not at all 04/14/2024 9:02 AM Josie Tyler RN Feeling down, depressed, or hopeless Not at all 04/14/2024 9:02 AM FABT Josie Doe RN Patient Health Questionnaire-2 Score 0 04/14/2024 9:02 AM FABT Chloe Doe RN documented as of this encounter Plan of Treatment Upcoming Encounters Date Type Department Care Team (Late st Contact Info) Description 09/14/2025 12:20 PM EST [facility] [address] [place] [address] Preeti Gomez MD [address] [place] [address] documented as of this encounter Visit Diagnoses Diagnosis Supervision of high risk , antepartum- Primary documented in this encounter Additional Health Concerns Infection Onset Date Last Indicated Resolved Time 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 Assessment Noted Time A fall risk assessment has been complete d for the patient 04/04/2022 10:30 AM EDT A Body Mass Index follow-up plan has been documented for the patient 04/13/2024 11:34 AM EDT documented as of this encounter Care Teams Soccer Ball Assembler Relationship Specialty Start Date End Date Octaviano Cabrera PA [address] [place] [phone] PCP - General Internal Medicine 08/12/21 02/26/25 Terry Ag MD [address] [place] [phone] Transplant Physician Transplant Surgery 12/02/20 Lee Ellis MD [address] [place] [id number] Transplant Physician Transplant Surgery 12/02/20 Cici Wiley [id number] Surgical Navigator Transplant 12/02/20 Aleksandra Mensah RN -TRANSPLANT ADMINISTRATION [address] [place] [id number] Surgical Navigator Transplant Surgery 02/15/21 Josie Moseley [address] [facility] [address] [place] [address] Low Emission Automobile Designer 04/13/24 04/13/25 documented as of this encounter
--- OUTSIDE RECORDS SUMMARY | 2025-06-14 15:27 | XMS_ITS | Encounter Summary ---
Author Organization [facility] Address [address] [place] [address] Care Team Providers Care Paint Booth Operator Name Role Phone Terry Ag MD Unavailable Lee Ellis MD Unavailable [phone] Cici Wiley Unavailable Unavailable Jarvis Bennett MD Primary Care Provider [phone] Aleksandra Mensah RN Unavailable Unavailable Octaviano Cabrera Primary Care Provider [phone] Josie Moseley Unavailable [phone] Encounter Details Date Type Department Care Team (Late st Contact Info) Description 11/26/2020 Abstract [facility] ADULT ECHO CONVERSIONS [address] [place] [address] Provider, External Social History Tobacco Use Types Packs/Day Years [...] Office Visit [facility] Endocrinology [address] [place] [address] Preeti Gomez MD [address] [phone] documented as of this encounter Visit Diagnoses Not on filedocumented in this encounter Additional Health Concerns Infection Onset Date Last Indicated Resolved Time C. difficile Rule-Out 08/15/2019 08/15/20192020 5:23 AM EDT Respiratory Rule-Out 06/24/2020 06/24/2020 021 5:24 AM EDT 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 COVID-19 Rule-Out 08/12/2021 08/12/2021 08/13/2021 1:52 AM EST COVID 19 (Confirmed) Comment:[facility] has contacted the patient regarding their positive COVID-19 test. Patient instructed that the local Health Dept. will be contacting them with a quarantine notice and to discuss contact tracing and should remain at home/isolated until notified. Patient was educated that if symptoms progress and they become short of air to proceed to the nearest ED. [facility] Dual Rate Dealer: Shelley Manzo 08/12/2021 08/12/202109/02 5:23 AM EST COVID-19 Rule-Out 09/24/2021 09/24/2021 09/24/2021 6:17 PM EDT documented as of this encounter Care Teams Paint Booth Operator Relationship Specialty Start Date End Date Jarvis Bennett MD [address] [place] [address] PCP - General 12/20/20 08/11/21 Octaviano Cabrera PA [address] [place] [phone] PCP - General Internal Medicine 08/12/21 02/26/25 Terry Ag MD [address] [place] [phone] Transplant Physician Transplant Surgery 12/02/20 Lee Ellis MD [address] [place] [address] Transplant Physician Transplant Surgery 12/02/20 Cici Wiley [id number] Surgical Navigator Transplant 12/02/20 Aleksandra Mensah RN [facility] [address] [place] [address] Surgical Navigator Transplant Surgery 02/15/21 Josie Moseley [address] [place] [address] Marketing Performance Analyst 04/13/24 04/13/25 documented as of this encounter
--- OUTSIDE RECORDS SUMMARY | 2025-06-14 15:27 | XMS_ITS | Encounter Summary ---
Author Organization Healthcare Address [address] [place] [address] Care Team Providers Care Fleet Dispatch Manager Name Role Phone Terry Ag MD Unavailable Lee Ellis MD Unavailable [phone] Cici Wiley Unavailable Unavailable Jarvis Bennett MD Primary Care Provider [phone] Aleksandra Mensah RN Unavailable Unavailable Octaviano Cabrera Primary Care Provider [phone] Josie Moseley Unavailable [phone] Encounter Details Date Type Department Care Team (Late st Contact Info) Description 12/26/2020 Lab Requisition [facility] [address] [place] [address] Janes Harrell MD [address] [facility] [address] [place] [address] Kidney transplant rejection Social History Tobacco Use Types Packs/Day Years [...] have Coronavirus / COVID-19? 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 Patient instructed that the local Health Dept. will be contacting them with a quarantine notice and to discuss contact tracing and should remain at home/isolated until notified. Patient was educated that if symptoms progress and they become short of air to proceed to the nearest ED. [facility] Blood Bank Technologist: Shelley Manzo 08/12/2021 08/12/202109/02 5:23 AM EST COVID-19 Rule-Out 09/24/2021 09/24/2021 09/24/2021 6:17 PM EDT Assessment Noted Time A fall risk assessment has been complete d for the patient 12/20/2020 2:48 PM EDT documented as of this encounter Care Teams Fleet Dispatch Manager Relationship Specialty Start Date End Date Jarvis Bennett MD [address] [place] [address] PCP - General 12/20/20 08/11/21 Octaviano Cabrera PA [address] [place] [address] PCP - General Internal Medicine 08/12/21 02/26/25 Terry Ag MD [address] [place] [address] Transplant Physician Transplant Surgery 12/02/20 Lee Ellis MD [address] [facility] [address] [place] [address] Transplant Physician Transplant Surgery 12/02/20 Cici Wiley [id number] Surgical Navigator Transplant 12/02/20 Aleksandra Mensah RN [facility]-TRANSPLANT ADMINISTRATION [address] [place] [id number] Surgical Navigator Transplant Surgery 02/15/21 Josie Moseley [address] [facility] [address] [place] [address] Lens Grinder 04/13/24 04/13/25 documented as of this encounter
--- OUTSIDE RECORDS SUMMARY | 2025-06-14 15:27 | XMS_ITS | Encounter Summary ---
Author Organization Healthcare Address [address] [place] [address] Care Team Providers Care Engineering Surveyor Name Role Phone Terry Ag MD Unavailable Lee Ellis MD Unavailable [phone] Cici Wiley Unavailable Unavailable Jarvis Bennett MD Primary Care Provider [phone] Aleksandra Mensah RN Unavailable Unavailable Octaviano Cabrera Primary Care Provider [phone] Josie Moseley Unavailable [phone] Encounter Details Date Type Department Care Team (Late st Contact Info) Description 07/24/2021 Lab Requisition [facility] [address] [place] [address] Janes Harrell MD [address] [facility] [address] [place] [address] Awaiting organ transplant status Social History Tobacco Use Types Packs/Day Years Used Date Smoking Tobacco: Never Smokeless Tobacco: Never Alcohol Use Standard Drinks/Week Comments No 0 (1 standard drink = 0.6 oz pur e alcohol) Alcoholic Drinks/day: Alcohol Comments No Sex and Gender Information Value [...] have Coronavirus / COVID-19? No / Unsure 07/25/2021 5:44 AM EST documented as of this encounter Plan of Treatment Upcoming Encounters Date Type Department Care Team (Late st Contact Info) Description 09/14/2025 12:20 PM EST Office Visit [facility] Endocrinology [address] [place] [address] Preeti Gomez MD [address] [place] [address] documented as of this encounter Procedures Procedure Name Priority Date/Time Associated Diagnosis Comments HLA ANTIBODY TESTING (LSA) Routine 07/22/2021 8:30 AM EST Awaiting organ transplant status documented in this encounter Results * HLA Antibody Testing (LSA) (07/22/2021 8:30 AM EST) Blood Venous blood specimen / Unknown 07/22/2021 8:30 AM EST 07/24/2021 2:25 PM EST us Janes Harrell MD LAB BLOOD ORDERABLES Final Res ult [facility] [address] documented in this encounter Visit Diagnoses Diagnosis Awaiting organ transplant status documented in this encounter Additional Health Concerns Infection Onset Date Last Indicated Resolved Time 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 COVID-19 Rule-Out 08/12/2021 08/12/2021 08/13/2021 1:52 AM EST COVID 19 (Confirmed) Comment:[facility] has contacted the patient regarding their positive COVID-19 test. Patient instructed that the local Health Dept. will be contacting them with a quarantine notice and to discuss contact tracing and should remain at home/isolated until notified. Patient was educated that if symptoms progress and they become short of air to proceed to the nearest ED. [facility] Utilities Estimator And Drafter: Shelley Manzo 08/12/2021 08/12/202109/02 5:23 AM EST COVID-19 Rule-Out 09/24/2021 09/24/202109/24/2021 6:17 PM EDT Assessment Noted Time A fall risk assessment has been complete d for the patient 12/20/2020 2:48 PM EDT documented as of this encounter Care Teams Engineering Surveyor Relationship Specialty Start Date End Date Jarvis Bennett MD [address] [place] [address] PCP - General 12/20/20 08/11/21 Octaviano Cabrera PA [address] [place] [address] PCP - General Internal Medicine 08/12/21 02/26/25 Terry Ag MD [address] [place] [address] Transplant Physician Transplant Surgery 12/02/20 Lee Ellis MD [address] [place] [address] Transplant Physician Transplant Surgery 12/02/20 Cici Wiley [id number] Surgical Navigator Transplant 12/02/20 Aleksandra Mensah RN [facility] [address] [place] [address] Surgical Navigator Transplant Surgery 02/15/21 Josie Moseley [address] [place] [address] Geology Faculty Member 04/13/24 04/13/25 documented as of this encounter
--- OUTSIDE RECORDS SUMMARY | 2025-06-14 15:27 | XMS_ITS | Encounter Summary ---
Author Organization Healthcare Address [address] [place] [address] Care Team Providers Care Paper Reclaiming Machine Operator Name Role Phone Terry Ag MD Unavailable Lee Ellis MD Unavailable [phone] Cici Wiley Unavailable Unavailable Jarvis Bennett MD Primary Care Provider [phone] Aleksandra Mensah RN Unavailable Unavailable Octaviano Cabrera Primary Care Provider [phone] Josie Moseley Unavailable [phone] Encounter Details Date Type Department Care Team (Late st Contact Info) Description 05/04/2019 [facility] [address] [place] [address] Naye Beebe RN [id number] Social History Tobacco Use Types Packs/Day Years Used Date Smoking Tobacco: Never Assessed Comments Unknown Sex and Gender Information Value Date Recorded Sex Assigned at Female 07/25/2021 7:30 AM EST Legal Sex Female 7:46 PM EDT Gender Identity Female 07/25/2021 7:30 AM EST Sexual Orientation Not on file documented as of this encounter Miscellaneous Notes * Progress Notes - Naye Stanton - 05/04/2019 4:42 PM EDT Pt has been marked as graft failure as of 11/05/18 due to biopsy-proven advanced fibrosis with 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 * Progress Notes - Martina Raymundo - 03/23/2019 10:17 AM EDT Echo reviewed; RVSP 33.2. OK to list from a cardiac standpoint. Pt will still need to obtain colpolscopy and SW clearance before listing. * Progress Notes - Tatiana Clayton - 03/09/2019 9:11 AM EDT Evaluation reviewed. RVSP elevated on echo, but this was performed prior to pt starting dialysis. Repeat echo after dialysis. Needs colposcopy per top precipitator operator for atypical cells and positive HPV on pap. SW-not cleared until her support persons calls to confirm. FS- 70. Plan to list active once cleared by SW, and repeat echo and colposcopy are reviewed. 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 She makes urine, not on diuretics. Sensitization history positive for blood transfusion, txp, and pregancy x2. 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 Positive for diabetes and hypertension Social History: The patient denies tobacco, alcohol, recreational drugs. She lives with her boyfriend and her 2 daughters, she does not work. On exam, the patient is obese, not prohibitive, has decent femoral pulses, displaceable lower abdomen. Overall, I worry about transplanting Guerline not knowing the triggers that prompted her prior allograft failure. I think that this may have been due in part to the fact that she had 2 pregnancies post transplant and has not had insight to her post-transplant management. Current form of control is IUD. Social work??? to start; will need to meet with the patient to discuss compliance and self-directedmanagement, care after next transplant Preemptive status???patient night on dialysis, would recommend initiation of workup documented in this encounter Plan of Treatment Upcoming Encounters Date Type Department Care Team (Late st Contact Info) Description 09/14/2025 12:20 PM EST Office Visit [facility] Endocrinology [address] [place] [address] Preeti Gomez MD [address] [address] documented as of this encounter Visit Diagnoses Not on filedocumented in this encounter Additional Health Concerns Infection Onset Date Last Indicated Resolved Time Gastrointestinal Rule-Out 05/05/2018 05/05/2018 5:23 AM EDT C. difficile Rule-Out 08/15/2019 08/15/20192020 5:23 AM EDT Gastrointestinal Rule-Out 08/18/2019 08/18/2019 5:23 AM EDT Respiratory Rule-Out 06/24/2020 06/24/202011/30/ 021 5:24 AM EDT 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 COVID-19 Rule-Out 08/12/2021 08/12/2021 08/13/2021 1:52 AM EST COVID 19 (Confirmed) Comment:[facility] has contacted the patient regarding their positive COVID-19 test. Patient instructed that the local Health Dept. will be contacting them with a quarantine notice and to discuss contact tracing and should remain at home/isolated until notified. Patient was educated that if symptoms progress and they become short of air to proceed to the nearest ED. [facility] Hook And Eye Machine Operator: Shelley Manzo 08/12/2021 08/12/202109/02 5:23 AM EST COVID-19 Rule-Out 09/24/2021 09/24/2021 09/24/2021 6:17 PM EDT documented as of this encounter Care Teams Paper Reclaiming Machine Operator Relationship Specialty Start Date End Date Jarvis Bennett MD [address] [place] [address] PCP - General 12/20/20 08/11/21 Octaviano Cabrera PA [address] [place] [address] PCP - General Internal Medicine 08/12/21 02/26/25 Terry Ag MD [address] [place] [address] Transplant Physician Transplant Surgery 12/02/20 Lee Ellis MD [address] [place] [address] Transplant Physician Transplant Surgery 12/02/20 Cici Wiley [id number] Surgical Navigator Transplant 12/02/20 Aleksandra Mensah RN [facility] [address] [place] [address] Surgical Navigator Transplant Surgery 02/15/21 Josie Moseley [address] [facility] [address] [place] [address] Relish Blender 04/13/24 04/13/25 documented as of this encounter
--- OUTSIDE RECORDS SUMMARY | 2025-06-14 15:27 | XMS_ITS | Encounter Summary ---
Author Organization Healthcare Address [address] [place] [address] Care Team Providers Care Sail Repair Person Name Role Phone Terry Ag MD Unavailable Lee Ellis MD Unavailable [phone] Cici Wiley Unavailable Unavailable Jarvis Bennett MD Primary Care Provider [phone] Aleksandra Mensah RN Unavailable Unavailable Octaviano Cabrera Primary Care Provider [phone] Josie Moseley Unavailable [phone] Encounter Details Date Type Department Care Team (Late st Contact Info) Description 06/20/2020 [facility] Historical OTTR [address] [place] [address] Martina Raymundo, [employer] [facility] None Social History Tobacco Use Types Packs/Day Years Used Date Smoking Tobacco: Never Assessed Comments Unknown Sex and Gender Information Value Date Recorded Sex Assigned at Female 07/25/2021 7:30 AM EST Legal Sex Female 7:46 PM EDT Gender Identity Female 07/25/2021 7:30 AM EST Sexual Orientation Not on file documented as of this encounter Miscellaneous Notes * Progress Notes - Martina Raymundo RN - 06/20/2020 9:38 AM EST Txp nephrectomy performed by Dr Ag 05/22. F/U on 06/14 and cleared. OK to activate. * Progress Notes - Martina Raymundo RN - 05/16/2020 3:24 PM EST Pt seen in clinic by Dr Jang who is in agreement that pt needs a txp nephrectomy. This has been scheduled with Dr Ag * Progress Notes - Martina Raymundo RN - 05/02/2020 9:[address] Oseguera consult (urology) discussed. Transplant nephrology would like to see pt in clinic to assess symptoms. * Progress Notes - Denise Roberson MD - 04/25/2020 12:21 PM EDT I spoke to Dr. Clay in Urology about the patient. Urology was consulted for her history of recurrent UTI. After seeing the patient, the Urology attending did not think that her allograft pain was from recurrent UTIs given that her clinical picture did not suggest. The patient no longer makes urine as well. Urology did cysto her and place a ureteral stent in her transplanted kidney, with only 2cc of urine extracted. This culture was negative, but the procedure had been performed after the patient had already been on antibiotics for a couple of days. On imaging, the kidney looks worse and the ureter looks like it has hydronephrosis, but there was no reflux up into the kidney, so this may just be how the kidney looks? We discussed the possibility of this being chronic rejection type pain. Will need to discuss with the nephrologists who are managing her regarding her symptoms, etiology, and possible role for transplant nephrectomy. * Progress Notes - Ashley Smith - 03/07/2020 10:43 AM EDT Reviewed pathology form pap smear, abnormal. Patient will need to follow up with [facility]OST[facility] and see when they recommend repeat pap. * Progress Notes - Sudhakar Garcia - 02/01/2020 3:22 PM EDT 01/25 Annual. 34-year-old female, accompanied today by her boyfriend, with a history of IgA nephropathy. She underwent a living related kidney transplant at [facility], from her brother, in 2006. Eventually graft loss secondary to chronic rejection, likelyantibody mediated rejection. Patient has been on hemodialysis since May 18, 2019. She is anuric. For her annual testing today, she had a cardiology testing and met with our social sciences department chair. Reports she is listed active at [place] [facility]. Denies any complaints. She is physically active. Denies any tobacco, alcohol or recreational drug use. -Patient is currently listed but inactive at for a kidney re-transplant. She has had chronic UTIs and is scheduled to be seen by urology on January 30 for clearance. Reports her last UTI was back in July of this year after being hospitalized for pyelonephritis for about 7 days. -She has no living donor possibilities * Progress Notes - Martina Raymundo - 02/01/2020 10:18 AM EDT Annual testing reviewed; ok to remain inactive pending urology clearance for chronic UTIs * Progress Notes - Martina Raymundo - 09/28/2019 9:43 AM EDT Pt was inactivated approx 1 month ago due to hospitalization for UTI (treated with IV Ab). Pt now off antibiotics and asymptomatic however, pt states she has UTIs at least monthly. Remain inactive and refer to urology. documented in this encounter Plan of Treatment Upcoming Encounters Date Type Department Care Team (Late st Contact Info) Description 09/14/2025 12:20 PM EST [facility] [address] [place] [address] Preeti Gomez MD [address] [place] [address] documented as of this encounter [...] 08/13/2021 1:52 AM EST COVID 19 (Confirmed) Comment:[facility] has contacted the patient regarding their positive COVID-19 test. Patient instructed that the local Health Dept. will be contacting them with a quarantine notice and to discuss contact tracing and should remain at home/isolated until notified. Patient was educated that if symptoms progress and they become short of air to proceed to the nearest ED. [facility] Cold Rolling Supervisor: Shelley Manzo 08/12/2021 08/12/202109/02 5:23 AM EST COVID-19 Rule-Out 09/24/2021 09/24/2021 09/24/2021 6:17 PM EDT documented as of this encounter Care Teams Sail Repair Person Relationship Specialty Start Date End Date Jarvis Bennett MD [address] [place] [address] PCP - General 12/20/20 08/11/21 Octaviano Cabrera PA [address] [place] [address] PCP - General Internal Medicine 08/12/21 02/26/25 Terry Ag MD [address] [place] [address] Transplant Physician Transplant Surgery 12/02/20 Lee Ellis MD [address] [facility] [address] [place] [address] Transplant Physician Transplant Surgery 12/02/20 Cici Wiley [id number] Surgical Navigator Transplant 12/02/20 Aleksandra Mensah RN [facility] [address] [place] [address] Surgical Navigator Transplant Surgery 02/15/21 Josie Moseley [address] [facility] [address] [place] [address] Blister Rust Eradicator 04/13/24 04/13/25 documented as of this encounter
--- OUTSIDE RECORDS SUMMARY | 2025-06-14 15:27 | XMS_ITS | Encounter Summary ---
Author Organization [facility] Address [address] [place] [address] Care Team Providers Care Windows Infrastructure Engineer Name Role Phone Terry Ag MD Unavailable Lee Ellis MD Unavailable [phone] Cici Wiley Unavailable Unavailable Jarvis Bennett MD Primary Care Provider [phone] Aleksandra Mensah RN Unavailable Unavailable Octaviano Cabrera Primary Care Provider [phone] Josie Moseley Unavailable [phone] Encounter Details Date Type Department Care Team (Late st Contact Info) Description 07/12/2018 Legacy OTTR Encounter Historical OTTR [address] [place] [address] Amelia Gamble, RN [facility] [id number] [address] [place] [address] Social History Tobacco Use Types Packs/Day Years Used Date Smoking Tobacco: Never Assessed Comments Unknown Sex and Gender Information Value Date Recorded Sex Assigned at Female 07/25/2021 7:30 AM EST Legal Sex Female 7:46 PM EDT Gender Identity Female 07/25/2021 7:30 AM EST Sexual Orientation Not on file documented as of this encounter Miscellaneous Notes * Progress Notes - James Pre Coder - 05/18/2019 11:53 AM EST Mailed active kidney listing letter, UNOS, [facility] meaghan and lab spec. form, Kidney Txp Coverage, 01/2019 Kidney SRTR to pt. CC'd dialysis center. Referring MD is internal referring MD. Copies filed in compliance. * Progress Notes - Martina Raymundo - 05/18/2019 11:40 AM EST Insurance clearance obtained. Contacted patient and informed her that she has been approved for listing. Reviewed when to contact the coordinator (medical changes, infections, colds, hospitalizations, social changes, travel, phone number, insurance, address, etc), answering all calls (even blocked numbers), monthly labs, living donation and her PRA of 0%. She confirmed understanding of all. Pt listed in UNOS, OTTR and SCM updated, and all compliance documents scanned into All DOCS as well as SCM Compliance. Listed email sent. Please send listing letters/documents. * Progress Notes - ProviderCleo MD - 05/17/2019 4:00 PM EST Patient clear to be listed active. * Progress Notes - ArleyTawana - 05/12/2019 9:57 AM EDT confirmed 08/11/19 9:30 am arrival time HDGD/AA. Appt reminder mailed. Note to TH for 08/11/19 hemodialysis graft duplex precert. * Progress Notes - Beth Das, SEBLE - 05/06/2019 12:37 PM EDT SW called and spoke to pt about caregiver plan. She confirmed that her MIL is living in the house and will be available to take care of the children. * Progress Notes - Naye Stanton - 05/04/2019 11:05 AM EDT Pt started dialysis 11/05/18. 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 Okay to officially bisi as graft failure as she has been re-referred fortxp? Email request sent to MDs * Progress Notes - Martina Raymundo - 04/29/2019 1:17 PM EDT IMP form faxed/insurance auth records emailed to [facility] * Progress Notes - Martina Raymundo - 04/29/2019 1:16 PM EDT 2728 form requested from dialysis center * Progress Notes - Cici Wiley - 04/29/2019 12:29 PM EDT Ms. Merchant was seen in clinic yesterday by Dr. Ellis - Results of HDGD were not back - He called and spoke with the tech who performed the scan and determined that there were no abnormalities - POCis to continue with scheduled 6 month follow up - He feels that the AVF just needs to mature and for the nurses to get used to accessing her fistula. * Progress Notes - Beth Das LCSW - 04/28/2019 11:34 AM EDT Pt boyfriend, Olivia, called and confirmed his willingness and ability to serve as pt primary support person after transplant. He reports he has already been talking to work about time off and is 100% committed . * Progress Notes - Cleo Adams MD - 04/26/2019 6:26 AM EDT DOS 04/28/2019 Hemodialysis graft duplex (AVF) pt has [employer] [facility] NPR update IAuth and Nurse * Progress Notes - Cici Wiley - 04/25/2019 3:53 PM EDT Spoke with Dr. Ellis today about Ms Merchant access: he would like to see her in clinic with an US. - Scheduled for HDGD 04/28 @[address] Ellis at 1500 - Called and advised patient - Orgas calendar updated - Note to Ita for pre auth of Hemodialysis Graft Duplex due to AVF malfunction - Note to Naye for update * Progress Notes - Martina Raymundo - 04/22/2019 2:42 PM EDT Per SW, support person has not contacted her. Called and spoke with pt to advise support needs to be confirmed before listing. Ms. Merchant verified that she has the phone number. * Progress Notes - Cici Wiley - 04/22/2019 12:36 PM EDT Pt called this morning. She said that the dialysis center is still having a hard time accessing anddialyzing. Ms. Merchant said that they were able to access it but only able to run for an hour this past Thursday. Today it took 6 tries to access for dialysis, patient was dialyzing at the time. I ask her if she thought it was the needle size affecting it. She said that they have been using 16 gauge needles. Advised patient that Dr. Ellis was currently in the OR but as soon as I got an answer, I would contact her. - Note to Rhonda to advise what to do? * Progress Notes - Hallie RamirezPre Coder - 04/22/2019 12:36 PM EDT Rec'd two calls from pt., wanting to be transferred to [place] or Cici, transferred call an hour ago, pt. states the call did not go through, informed her that I will notify Cici to call if the same thing happens, she states, best number to return call is her cell number, as she is currently in center at dialysis. Transferred to [facility]. * Progress Notes - Shelley Davila LCSW - 04/22/2019 12:11 PM EDT Pt's boyfriend (reported support) has not followed up with the SW to confirm role. Note to Coord. * Progress Notes - Martina Raymundo - 04/22/2019 11:44 AM EDT Colpolscopy completed at ; f/u in 12 months with pap smear. Pt still needs SW clearance before listing. Message to SW to clarify if support has been in contact * Progress Notes - Cici Wiley - 04/13/2019 9:[address] Ellis we need to follow up with Ms. Merchant in three months with HDGD/Visit - Orders in [facility] - Note to Tawana for scheduling. * Progress Notes - Cici Wiley - 04/11/2019 11:18 AM EDT Ms. Merchant called this morning stating that she had problems dialyzing on Thursday and had to stop early and today they are having problems accessing her fistula and are not able to. She ask if we can move up her fistulogram. I told her that I would get in contact with IR and give her a call back. - Contacted Jeaneth with IR. She said if she could be here at 0630 in the morning that she would be first case. I told her that we would take it. - I called Ms. Merchant back and ask her if she could do it, she said yes. I told her same prep as last time. She understood. I told her to call me if she had any questions. - Note to Dr. Ellis and Naye for update. - Note to Eder for update of date of Fistulogram * Progress Notes - Cici Wiley - 04/05/2019 11:04 AM EDT Called and spoke with Bebe from [facility] to advise her of what happened today and when the new fistulogram is scheduled. Also, advised Bebe that Ms Merchant should continue to use smaller gauge needles for dialysis until fistulogram. Bebe verbalized understanding. Note to Naye for update. * Progress Notes - ProviderCleo MD - 04/05/2019 9:49 AM EDT DOS 04/11/2019 Fistulogram Rhonda, AVF malfunction Pt has [employer] [place] [id number], [id number] per rep NPR as long as billed op and both prov and fac are par, updating IAuth and nurse. * Progress Notes - Cici Wiley - 04/05/2019 8:48 AM EDT Ms Merchant was scheduled for a fistulogram today at 0830. Upon arrival she was told that it had beencancelled. I contacted Jeaneth Juares, whom scheduled the fistulogram, she told me that Mikayla (anIR associate) cancelled the fistulogram stating the reason pt not defined. She apologized for themistake and got her rescheduled for the next available date which is 04/14 @ 1200. I called and spoke with Ms. Merchant about this and she was very understanding and is okay with that date and time. Heronly request is that we contact [facility] and let them know what happened and request that they continue to use the smaller needles. Ms. Merchant said that dialysis has been going well with the smaller needles. I also ask her if she was feeling better since according to the previous note she had went to the ED for chest pain. Ms. Merchant said that she is feeling better but they couldn't tell her why she was experiencing it. - Note to Dr. Ellis: Are you okay with this new date for the fistulogram? Would you like to try to reach out to Dr. Escobedo again? - Note to Eder for pre-auth of new date of fistulogram - Note to Naye for update. * Progress Notes - Ashley Smith - 04/04/2019 7:52 AM EDT pt called directional driller phone this morning and said she was having chest pain. instructed her to go tho the ED. SR notified * Progress Notes - Cici Wiley - 03/29/2019 4:54 PM EDT Called and LVM at [facility] that Dr. Ellis said that it was okay for Ms. Merchant to use smaller gaugeneedles while waiting to have her fistulogram. I asked them to call if they needed Dr. Ellis to make a note of it for them. * Progress Notes - Cici Wiley - 03/29/2019 1:16 PM EDT Ms. Merchant was seen in clinic yesterday with Dr. Ellis - Pt is currently scheduled for fistulogram on 04/05, we tried to get it moved up to 04/01 with IR but spot was booked and Dr. Ellis tried to see if Dr. Escobedo is available sooner, but nothing is earlier - faxed schedule to [facility] in [place] - Nurse called requesting note to be faxed over, phone systems currently not working for long distancescalls. - note to Naye for update * Progress Notes - Cici Wiley - 03/25/2019 2:44 PM EDT Faxed copy of fistulogram schedule to [facility] and took one up front for Ms. Merchant. * Progress Notes - Provider, MD Cleo - 03/25/2019 12:37 PM EDT DOS 04/05/2019 Fistulogram Rhonda, AVF malfunction Pt has [employer] [place] [address], [id number] per rep NPR as long as billed op and both prov and fac are par, updating IAuth and nurse. * Progress Notes - Cici Wiley - 03/25/2019 9:04 AM EDT Called [facility] in [place] to talk with Ana Rosa, she wasn't there - Spoke with Ely - She didn't have awhole lot of details for me about why she was needing to be seen. She said that her pressures were off. Ely said that she would figure out how to send me some more detailed information. - Spoke with Guerline, She said that the dialysis center wanted her to have some kind of scan because her flows were high I let her know that she that the scan was called a fistulogram. I ask if shewas wanting to see vascular surgery or if she would like to see Dr. Ellis. She said that she didn't have a preference. I told her that we would get her in to see Dr. Ellis on Thursday, 03/28 @ 0845 - I got her scheduled for a fistulogram April 05 @ 0830 [facility] at [facility] - Called and advised patient of appointment details: patient verbalized understanding - Note to Eder for pre-auth of fistulogram on 04/05 * Progress Notes - Bailey Leon - 03/17/2019 5:49 AM EDT Eval auth received, expires 09/14/2019. Saved with financial letter. * Progress Notes - Bailey Leon - 03/16/2019 9:05 AM EDT Evaluation authorization faxed to [facility]. * Progress Notes - Bailey Leon - 03/16/2019 6:34 AM EDT Please send Bailey Antoine, a letter of medical necessity, current labs and any diagnostic test results so evaluation authorization can be obtained. Thanks. * Progress Notes - Hallie RamirezPre Coder - 03/10/2019 2:34 PM EDT Priority mailed pt. 03/18/2019 ECHO only appt. sched. w/map. USPS T/N: [id number] * Progress Notes - Hallie RamirezPre Coder - 03/10/2019 2:23 PM EDT Called pt. to sched. ECHO only, pt. aware appt. needs to be right after her dialysis treatment, pt.states she finishes her dialysis treatments around 2, she states anytime after 2 should be fine to sched. Pt. confirms ECHO only appt. on: Thu., 03/18/2019, @1500 reg. for a 1530 appt. time. Pt. verified address on file as correct. Will mail appt. reminder priority. * Progress Notes - Ashley Smith - 03/09/2019 12:14 PM EDT called pt and made her aware of committee decision to repeat ECHO after her dialysis treatment. Pt also aware she needs to be cleared by SW and her colposcopy (end of Mar) needs to be reviewed before she is eligible to listed as active. she verbalized understanding. please schedule ECHO and make sure pt understands it needs to be as soon as possible to AFTER her dialysis treatment. SELVIN notified thank you * Progress Notes - Martina Raymundo - 03/07/2019 10:11 AM EDT Phani, with operating room specialist called and stated the pt will need to have a colposcopy procedure which is like a minor biopsy and that the TWISTING PRESS OPERATOR, Mary, does not think this shoud interfere with txp. * Progress Notes - Tatiana Clayton - 03/04/2019 4:12 PM EDT Returned a call from Lena Villarreal Co LALITA who is asking about Ms. Merchant' listing status. Left a message advising that pt is not yet listed, but that we will be discussing her evaluation to determine candidacy next week. * Progress Notes - Martina Raymundo - 03/03/2019 3:24 PM EDT Spoke with Phani RN with women[facility] clinic. 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 Ordering provider in on vacation this week. Phani will speak with her Thursday and notify coordinator of f/u plan * Progress Notes - Nikki Mejia - 03/03/2019 11:01 AM EDT Pt seen in clinic Plan: Patient presents to our clinic for follow-up. She remains on hemodialysis 3 times a week withno problems. We are weaning her immunosuppression, she is off Imuran at this point and on low-dose Prograf. She has not had any symptoms suggestive of a rejection flare. At this point, I will decrease Prograf to 1 mg a day for one month, then 1 mg every other day for one month, she can then discontinue. Again we discussed with the patient symptoms of a rejection flare at which time she could notify usimmediately. She has been re-referred for kidney transplant evaluation, recently completed Pap smear and awaiting on results. I have encouraged weight loss and exercise at her capabilities. The rest of her ESRD management will continue to be done by his primary block breaker. We will leave her appointment on a when necessary basis, she is to call us back with any questions or concerns. * Progress Notes - Martina Raymundo - 12/28/2018 12:36 PM EDT Called pt to advise a pap smear is still needed before reviewing evaluation in commitee. Pt has nothad one and will notify coordinator once it is scheduled. Local items needed letter mailed to pt * Progress Notes - Cici Wiley - 12/27/2018 11:08 AM EDT Note to Dr. Ellis: Spoke with Deb Mayur this morning - she said that her AVF is doing well and she is actively using it - I confirmed that she is doing dialysis at [facility] - let her know to give us a call if she had any issues with it. * Progress Notes - Shelley Davila LCSW - 12/24/2018 11:49 AM EDT evaluation completed 12/23/18 and full documentation is in SCM. Pt appears to meet minimum criteria for listing from a psychosocial standpoint, but cannot be cleared until her boyfriend calls the SW to discuss/confirm support plan. * Progress Notes - Nikki Mejia - 12/02/2018 11:02 AM EDT Pt seen in clinic Plan: 1. Today, we'll begin a schedule to taper her immunosuppression. 2. I will decrease her Imuran to 50 mg daily for one month and then I will discontinue it. 3. I will decrease her tacrolimus to 3 mg twice a day for one month, then 2 mg twice a day for one month, then 1 mg twice a day for one month. 4. I'll schedule her to return to our clinic in 3 months. At that point, assuming that she is stilldoing well, I will plan to taper off the tacrolimus altogether. * Progress Notes - Hallie RamirezPre Coder - 11/22/2018 5:19 PM EDT Mailed 12/23/2018 evaluation appt. letter/sched., SW caregiver resp. sheet and maps. * Progress Notes - Hallie RamirezPre Coder - 11/18/2018 11:58 AM EDT Called pt. to confirm r/s eval. appt's on: Thur., 12/23/2018, w/reg @1230. Will mail appt. ppw. * Progress Notes - Hallie RamirezPre Coder - 11/16/2018 7:49 AM EDT Pt. sched. for evaluation on: ., 12/23/2018, w/reg @1230 in Txp, pending consultations. Will call pt. once confirmed via Orgas. * Progress Notes - Tatiana Clayton - 11/15/2018 4:18 PM EDT Left a message at [facility] requesting Ms. Merchant' 2728 form. * Progress Notes - Hallie RamirezPre Coder - 11/15/2018 3:51 PM EDT Called pt. to confirm remainder of evaluation on: Fri., 12/24/2018, w/reg @1230. Pt cannot confirm date due to her dialysis sched., apologized and informed pt., that I was not aware that she had a dialysis sched. updated her information to reflect sched., Thu/Thu/Thu., at [facility]. Informed pt, that I would let her nurse coord., know about her dialysis sched., and r/s her consults/lab/CXR/Panorex. She verbalized understanding. * Progress Notes - Hallie RamirezPre Coder - 11/10/2018 11:45 AM EDT Pt. r/s for remaining evaluation testing on: Thu,. 12/24/2018, will call pt. once consultations confirmed via Orgas. * Progress Notes - Martina Raymundo - 11/09/2018 12:47 PM EDT Reviewed hosp discharge summary with Dr Gallardo; ok to reschedule eval * Progress Notes - Provider, MD Cleo - 11/02/2018 2:49 PM EDT Per Suzanne Das, pt is being d/c'd today and needs rtc in one month. Spoke to pt and scheduled appt for 12-02-18 at 9:30/11:00 and mailed appt reminder to pt. Also called floor to advise to put in DC summary. * Progress Notes - Hallie RamirezPre Coder - 10/27/2018 4:00 PM EDT Pt's evaluation testing on: 10/28/2018 have been cancelled in [facility] due to pt. hospitalization. Consultations notified via Orgas meeting cancellation. Notifying helpdesk technician staff of 10/28/2018 cancellation. * Progress Notes - Hallie RamirezPre Coder - 10/27/2018 2:28 PM EDT Notified by LALITA, pt., has been admitted to hospital, notifying pre-kidney nurse coord., for awareness. * Progress Notes - Amelia Gamble - 10/23/2018 9:28 PM EDT Pt admitted on 10/22/18 for further evaluation and treatment of dysuria and fever. Will continue to follow. * Progress Notes - Amelia Gamble - 10/22/2018 3:09 PM EDT Received call from pt whom was seen by her local MD whom feels pt has a kidney infection and not a UTI. Her PCP has advised pt to come to ED for further evaluation for her possible kidney infection and fever. Pt just wanted to give us update so sending to pt primary coordinator for awareness. * Progress Notes - Hallie RamirezPre Coder - 09/23/2018 2:25 PM EDT Priority mailed pt.10/14/2018 and 10/28/2018 evaluation appt. letter/sched., stress instructions, caregiver resp. sheet and maps for ea. respective dates. [id number] * Progress Notes - Hallie RamirezPre Coder - 09/23/2018 2:06 PM EDT Called pt. to confirm evaluation sched. on: ., 10/14/2018 w/reg @0720 and ., 10/28/2018 w/reg @0930. Pt states she has recently moved, provided address: [address] [place] [id number]. Will verify and update systems. Pt. does confirm both dates/times. Will mail pt. appt. ppw. * Progress Notes - ProviderCleo MD - 09/22/2018 11:48 AM EDT DOS 10/14/2018 CT of ABD/PEL WO Oral IV Contrast Txp SCM KAC plan code NPR updating IAuth and nurse. * Progress Notes - Hallie RamirezPre Coder - 09/17/2018 1:02 PM EST Pt. scheduled for evaluation on: ,. 10/14/2018 w/reg @0720 and ., 10/28/2018 w/reg @0915. Willcall pt. once all consultations are confirmed. * Progress Notes - Martina Raymundo - 09/15/2018 3:37 PM EST Please schedule evaluation * Progress Notes - ProviderCleo MD - 09/06/2018 4:21 PM EST Pt has appt on 09-09-18 so I did not sent DKNA letter out. * Progress Notes - Amelia Gamble - 09/06/2018 11:01 AM EST Pt DNKA today. Sending to Heather to peter and pt primary coordinator for awareness. Thank you. * Progress Notes - Aleksandra Mensah RN - 08/26/2018 1:57 PM EST Pt. seen in clinic today by Dr. Ellis. Fistula can be used in 4 weeks, RTC 2 weeks after first dialysis w/ AVF. Pt. to call when AVF is accessed for the first time so we can schedule f/u 2 weeks from then. * Progress Notes - Hallie RamirezPre Coder - 08/25/2018 8:51 AM EST Mailed 09/09/2018 ICE letter to pt. * Progress Notes - Hallie RamirezPre Coder - 08/24/2018 3:29 PM EST Rec'd fwd'd VM, from pt., wanting a return call to r/s her 08/16/2018 Kidney ICE appt. Returned pt's call, verified address/dialysis info, pt. states she still has her ICE packet. Informed her that we would be mailing just an appt. letter, pt. acknowledged. Pt is confirmed for r/s ICE appt. on: Th., 09/09/2018 @0730 arrival for an 0800 appt. time. Will mail updated appt. letter at earliest convenience. * Progress Notes - ProviderCleo MD - 08/13/2018 11:19 AM EST Per Ngozi w/ PACU pt. needed 2 week AVF placement f/u. Pt. scheduled for 08/26 @ 1:20pm. Mailed appt. reminder. * Progress Notes - Lee Ellis - 08/13/2018 11:08 AM EST AVF complete, F/U 2 weeks in AA clinic. * Progress Notes - Cici Wiley - 08/12/2018 2:59 PM EST Pt was seen in clinic today by Dr. Ellis to discuss AV fistula placement - date for placement is tomorrow 08/13 @ 0900 - pt told to be there at 0700 - pt is to call if she has any questions or concerns before hand * Progress Notes - ProviderCleo MD - 08/12/2018 2:12 PM EST DOS 08/13/2018 AVF ESRD [id number], Pt has [employer] [place] per Dinesh PARKER, updating IAuth and nurse. * Progress Notes - Samra Adkins - 08/10/2018 9:55 AM EST tacro no change. * Progress Notes - Naye Stanton - 08/10/2018 9:29 AM EST justin young for MD review.c urrent tacro dose 4/4 * Progress Notes - Nikki Mejia - 08/09/2018 10:48 AM EST Pt seen in clinic plan: - renal allograft function, GFR was less than 20 due to chronic ABMR, she is not being worked up for re-transplant and AVF, no further actions are warranted for her chronicity, will treat as for advanced CKD, and monitor closely for dialysis needs in future. - for HTN increase coreg to 25 bid - Calcium, and phosphate reviewed and are normal. - anemia at target - proteinuria, will consider arb or acthar if worse. last checked was 1.5 g - glucose high, will check A1C next visit, and start prednisone taper. - start po bicarb RTC 1 month. * Progress Notes - Naye Stanton - 07/29/2018 2:16 PM EST Pt called to inquire if she qualifies for disability again since she has a failing kidney. Advised pt to call local disability office to discuss criteria as I'm not exactly sure. Suggested she may have to be on dialysis before they will consider but suggested she discuss further with the disabilityofc. she states understanding * Progress Notes - ProviderCleo MD - 07/27/2018 11:54 AM EST DOS 08/12/2018 BUEVM [id number], Pt has [employer] per Dinesh NPR ref [id number] updating iAuth and nurse. * Progress Notes - Thiago Gordon - 07/27/2018 10:57 AM EST tacrolimus no change * Progress Notes - Cleo Adams MD - 07/27/2018 10:45 AM EST Pt. scheduled for AVF ICE on 08/12; BUEVM @ 11am, surg visit @ 12:40pm, POAC @ 2pm. Pt. confirmed appt. Mailed appt. schedule. Note to TH for 08/12 BUEVM precert. Note to primary coordinator for update. * Progress Notes - Naye Stanton - 07/27/2018 7:22 AM EST level sent for MD review. current tacro dose 10/14 * Progress Notes - Hallie RamirezPre Coder - 07/26/2018 4:05 PM EST Mailed pt. ICE packet. Cc'd referring . [facility] T/N: [id number] * Progress Notes - Hallie RamirezPre Coder - 07/26/2018 3:33 PM EST Rec'd notification of pt. re-referral for kidney txp. Called pt., pt is interested and verifies address/dialysis/PCP: Dr. Flores. Pt confirms ICE appt on: 08/16/2018 @0730 arrival for a 0800 appt. time. Will mail pt ICE packet at earliest convenience. * Progress Notes - Naye Stanton - 07/26/2018 3:03 PM EST pt seen in clinic today. Per Dr Adkins, please re-refer for transplant AND refer to surgeon for fistula placement * Progress Notes - Nikki Mejia - 07/26/2018 11:49 AM EST Per note above - pt needs to be referred for re-transplant and needs referral to surgeon for fistula placement * Progress Notes - Nikki Mejia - 07/26/2018 11:23 AM EST Pt seen in clinic Plan: Patient presents to our clinic for follow-up. Most recent events noted. 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 No DSA's were found May 11, 2018,non-HLA antibodies have been sent and are pending. I will add a spot urine protein creatinine to today's labs and follow up on results. We met in a multidisciplinary way and due to the significant amount of chronic changes have decided at this time not to proceed with further or aggressive immunosuppressive treatment. If her proteinuria worsens, we could consider a trial of ACTH gel. We did discuss with the patient her most recent renal allograft biopsy findings and her degree of chronic kidney disease and the likelihood of this progressing and approaching end-stage renal disease. We discussed referring her for retransplantation which she agrees. We also offered referral to a renal education class, which patient states has done in the past. She states that if she needs renal replacement therapy, would like to pursue hemodialysis, in center. At this time, I will proceed to refer to for renal transplant re-evaluation, we will also refer to our transplant surgeons for evaluation and creation of an AV fistula in preparation for hemodialysisin the future. I will repeat labs in one week, we will see her back in our clinic in 2 weeks at which time we'll obtain iron studies, ferritin, PTH, 25-hydroxy vitamin D levels, spot urine protein, spot urine creatinine and basic labs. We will consider adding sodium bicarbonate by next clinic visit, and perhaps the addition of low-dose KI inhibitor or ARB if her renal function is stable. She remains on high doses of prednisone which are slowly being weaned. We will follow Prograf level, adjust the dose as needed. She will continue Imuran at current dose. * Progress Notes - Cleo Adams MD - 07/20/2018 1:42 PM EST Per above note called pt and scheduled rtc for 07-26-18 at 11:30/13:00. * Progress Notes - Samra Adkins - 07/20/2018 9:48 AM EST We will discuss plan of care based on these results. Please bring back to clinic in 1 w. * Progress Notes - Naye Stanton - 07/20/2018 8:50 AM EST txp renal biopsy results from 07/12/18 below. Email update to [facility]. When does pt need RTC? [id number]: DIAGNOSIS [id number]: ALLOGRAFT KIDNEY, NEEDLE BIOPSY: [id number]: - CHRONIC CHANGES INCLUDING UP TO APPROXIMATELY 21% GLOBALLY SCLEROTIC GLOMERULI, [id number]: SEVERE INTERSTITIAL FIBROSIS, SEVERE TUBULAR ATROPHY/LOSS, MODERATE MUSCULAR [id number]: HYPERTROPHY OF A SMALL ARTERY, AND MODERATE ARTERIOLAR HYALINIZATION, SEE MICROSCOPIC [id number]: DESCRIPTION AND NOTE [id number]: - ACUTE TUBULAR INJURY, SEE MICROSCOPIC DESCRIPTION [id number]: - HISTOLOGICAL FINDINGS CONSISTENT WITH CHRONIC ACTIVE ANTIBODY MEDIATED REJECTION, [id number]: SEE MICROSCOPIC DESCRIPTION AND NOTE * Progress Notes - Amelia Gamble - 07/12/2018 4:47 PM EST Tacro level and Tacro dosing reviewed with Dr. Jang. No changes made to Tacro dosing. No further issues to note. Sending to pt primary coordinator for awareness. * Progress Notes - Amelia Gamble - 07/12/2018 3:22 PM EST Tacro level sent for MD review - current Tacro dose is 4/4 * Progress Notes - Amelia Gamble - 07/12/2018 10:08 AM EST Called Eri on 8E and let her know that pt would need Solumedrol 500mg IVPB x 1 for 3rd and final dose. Entered order for Eri and she verbalized she would put IV in patient and administer as prescribed. Will continue to follow pt. * Progress Notes - Amelia Gamble - 07/12/2018 8:40 AM EST Pt Cr remains elevated at 2.68. Pt sent over to [facility] to be placed in a room for biopsy scheduled for [address] Jang notified and will find out if pt to get 3rd Solumdrol dose and if so will call and speak to pt nurse. Will continue to follow pt. * Progress Notes - Amelia Gamble - 07/09/2018 1:42 PM EST Tacrolimus level, labs and Tacro dosing reviewed with Dr. Gaston. No changes made in Tacro dosing nor any further recommendations received. Dr. Gaston aware of tentative biopsy, labs on 07/12 and possible need for Solumedrol to be given in-patient on 07/12/18 if we are to proceed with biopsy. Will continue to follow pt. * Progress Notes - Amelia Gamble - 07/09/2018 10:15 AM EST Pt came in today for Solumedrol 500mg IVPB for second infusion. Pt given all instructions for scheduled biopsy on 07/12/[address] Jang and pt aware to arrive at 0700 for labs and to wait on lab results before we send to registration as pt is aware that if Cr stabilzes back to her baseline then the biopsy may be cancelled possibly. If the biopsy is to continue as scheduled, pt aware vane NPO after midnight, pack overnight bag just in case, have a shuttle driver to take home and that we willsend her to [facility] registration to go to a room by 0830 on 07/12/18. Pt verbalized understanding of this information and confirmed that she was not on any blood thinners or aspirin and pt aware that if she does have biopsy then third dose of Solumedrol will more than likely be given as an in-patientbut if biopsy not needed then we will give in clinic. No further issues to note in this regard. Karen is getting pt access and administering Solumedrol as ordered by MD. Will continue to follow pt. * Progress Notes - Amelia Gamble - 07/08/2018 4:29 PM EST Tacro level sent for MD review - current Tacro dose is 4/4 * Progress Notes - Amelia Gamble - 07/08/2018 4:07 PM EST Scheduled biopsy for 07/12/18 at 10:45 to be performed by Dr. Jang and Dr. Roberson as admitting surgeon. Pt will arrive at [facility] clinic for labs around 0700, wait for results and if Cr not improved then pt to proceed with having biopsy as scheduled per Dr. Jang. If pt to have biopsy, will send pt to [facility] to register at 0830 for placement in room in acute care at [place] for pre/post care from US guided Renal Bx. Will also inquire about pt need to obtain 3rd dose of Solumedrol that may need to be administered as an in-patient. Sending to pt primary coordinator for awareness and follow up. Labs have been entered to be done on 07/12/18 and will also give pt instructions when she returns to clinic to be seen for 2nd Solumedrol infusion on 07/09/18. Will continue to follow pt. * Progress Notes - Provider, MD Cleo - 07/08/2018 12:58 PM EST DOS 07/12/2018 US Guided Renal Allograft Biopsy, Laine DX elevated Creatinine R79.89, Kidney transplant Z94.0 78561, 77955, 67493 Pt has [facility] per [facility], updating nurse and IAuth. * Progress Notes - Amelia Gamble - 07/08/2018 12:20 PM EST Pt to have US guided renal allograft biopsy on 07/12/18. Dr. Jang ordered and to perform and Dr. Roberson is on in-patient service. Pt to have done due to elevated Creatinine (R79.89) s/p kidney transplant (Z94.0). [place] [address], 23 [place] [address]. Sending to Eder to please do PA and then I will work on getting scheduled for 07/12/18 as requested. Thank you. * Progress Notes - Nikki Mejia - 07/08/2018 11:45 AM EST Pt was given IV SM 500mg in clinic today, she will return tomorrow for her 2nd dose and 3rd dose onMonday (not sure if plans to do that on the floor before her biopsy or if she will get it after her biopsy in our clinic - that will need to be clarified. Thursday's dose of SM is in the clinic. Katiell be here at 10am tomorrow morning. * Progress Notes - Karen Thakur - 07/08/2018 11:10 AM EST Patient seen in clinic. Per Dr. Jang's note: Assessment and Plan: -. LINA with worsening graft function - HTN - immunosuppression management - post transplant care. - CKD-MBD plan: - LINA with worsening creatinine, recent CT with no anatomical abnormalities, urine with mild proteinuria, however no e/o infection, she has no known DSA, kidney bx concerning for chronic rejection, non HLA ab are being sent including AT1R, given the worsening creatinine and most recent bx which were c/w edema and non-specific changes, I discussed with her the possible need to start empirical solumedrol 500 x 3 days, and reassess on Thursday with kidney bx in case creatinine is not improved with current empirical treatment. - stop atenolol and start coreg 12.5 bid. - Calcium, and phosphate reviewed and are normal. RTC Thursday. * Progress Notes - Nikki Mejia - 07/08/2018 9:[address] Jang is seeing this pt in clinic today, he would like her scheduled for a kidney biopsy on Thursday 07/12 if possible. * Progress Notes - Amelia Gamble - 07/05/2018 12:15 PM EST Called pt and notified her that no changes made in Tacro dosing and reviewed labs with pt whom is aware that her Cr is currently at 3.00 and pt aware that she needs to RTC on 07/08/18 for further evaluation and treatment. Pt to arrive at 0800 for labs with MD to follow at 0930. Labs entered in [facility] and sending to helpdesk technician and clinic nurse for awareness that pt has been added on to clinic on 07/08/[address] Gordon. Thank you. * Progress Notes - Thiago Gordon - 07/05/2018 10:22 AM EST needs to be seen clinic July 08 * Progress Notes - Amelia Gamble - 07/04/2018 2:53 PM EST Outside labs received as requested - current Tacro dose is 4/4. Noting pt Creatinine is at 3.0 and the ova and parasites results were received and are negative. Sending for MD review. * Progress Notes - Naye Stanton - 06/30/2018 1:09 PM EST Called pt to see if labs have been done this week. SHe plan to go locally tmrw. Will scheduled RTC based on results. Specialty labs (from 06/21/18) remain pending * Progress Notes - Naye Stanton - 06/28/2018 5:40 PM EST Stool studies rec'd and uploaded in all docs. Cdiff and GI panel negative * Progress Notes - Naye Stanton - 06/24/2018 4:33 PM EST Called pt to see if stool studies were done. SHe states she has not done them has she is not currently having diarrhea. Symptoms are intermittent. Advised to have stool studies done if and when symptoms return and to call and notify coordinator so results can be obtained. She states understanding and will get labs done next week so further POC and RTC can be determined. Also, EBV IgG and CMV results negative * Progress Notes - Thiago Gordon - 06/22/2018 3:52 PM EST no change * Progress Notes - Gerard Nuris C - 06/22/2018 10:51 AM EST SW called pt to advise her to apply for unemployment ([phone], Thursday - Thursday 7:30 a.m. - 5:30 p.m., EST). Pt says her job was seasonal and pt missed a significant amount during the busy season, but pt did not consider herself to be fired. SW advised her to call her local unemployment office to confirm that she is not eligible. In the meantime, pt receives child support that covers rent and some expenses but leaves her with no other income. Pt says she has family/friends to assist her until she can apply for SSI/SSD and/or is well enough to work again. In addition, pt states that she receives too much in child support to qualify for KTAP. SW is unaware of any other options for pt toseek at this time but encouraged pt to call if she has other questions in the future. Of note, pt has Medicaid. * Progress Notes - Naye Stanton - 06/21/2018 6:50 PM EST level sent for MD review. current tacro dose 4/4 * Progress Notes - Nikki Mejia - 06/21/2018 2:21 PM EST Pt seen in clinic by Dr. Jang and Fellow (this is fellow's note) Plan: 1. On Imuran 100mg daily since patient is not tolerating Myfortic 2. Continue tacrolimus and prednisone 3. Obtain a comprehensive GI panel study 4. Discontinued phosphorus replacement 5. Continue magnesium replacement 6. Continue current antihypertensive medication 7. Increase by mouth fluid intake 8. Hemoglobin A1c on return. We'll refer to endocrine for management if hyperglycemia persists after tapering prednisone. Patient's most recent increase in creatinine may be related to ongoing diarrhea. She will require extensive workup including ova and parasite, C. difficile study, comprehensive GI panel, also check CMV and BK PCR, if the above studies negative patient may benefit from Imodium use. Patient will alsoneed GORDY(MHC class I related chain A antigens) allele antibody level and angiotensin receptor antibody level. This laboratory investigation will be sent to [facility], based on the above findings, and resolution of diarrhea on Imodium, if patient's creatinine continue to increase, we may arrange for a repeat biopsy. Last biopsy was done on 09 May, interstitial fibrosis and tubular atrophy and C4d negative. * Progress Notes - Naye Stanton - 06/21/2018 12:17 PM EST pt seen in clinic today. Order and supplies given for stool studies. pt to do tmrw at local lab. Copy of standing lab order given to pt for local labs in 1 week. Pt asked to see SW as she has lost employment due to recent illness. SW to investigate options and call her at home to further discuss. She is agreeable. * Progress Notes - Naye Stanton - 06/21/2018 11:42 AM EST Spoke with Abigail in special chem send out lab [phone]). THADDEUS-A and angiotensin type 1 receptor Ab tests can be sent out to [facility] thru [facility]. labs drawn today * Progress Notes - Naye Stanton - 06/09/2018 10:29 AM EST urine cx rec'd as contaminated. pt denies UTI sx. Nothing further erqired. Repeat labs scheduled for next week * Progress Notes - Naye Stanton - 06/08/2018 10:25 AM EST pt notified to repeat labs next Thursday. lab order faxed to [facility] with standing and add on labs * Progress Notes - Thiago Gordon - 06/08/2018 10:12 AM EST Add THADDEUS-A Angiotensin type-1 receptor Ab C3 C4 CH50 to next labs * Progress Notes - Thiago Gordon - 06/08/2018 7:52 AM EST add HbA1c and Urine P/C ratio * Progress Notes - Thiago Gordon - 06/07/2018 5:52 PM EST repeat labs early next week * Progress Notes - Thiago Gordon - 06/07/2018 5:48 PM EST no change in tacrolimus dose * Progress Notes - Naye Stanton - 06/07/2018 5:28 PM EST level sent for MD review. current tacro dose 4/4 * Progress Notes - Naye Stanton - 06/07/2018 5:27 PM EST Called pt and informed to d/c kphos as labs resulted after she left. Also, clarified imuran dose and updated eMAR. Advised to call if any concerns * Progress Notes - Cleo Adams MD - 06/07/2018 10:05 AM EST scheduled visit for today per above note. * Progress Notes - Nikki Mejia - 06/07/2018 8:45 AM EST Pt seen in clinic Plan: 1. Restart Imuran since patient is not tolerating Myfortic 2. Continue tacrolimus and prednisone 3. Urine culture and sensitivity and treat when sensitivities resulted 4. Discontinue phosphorus replacement 5. Continue magnesium replacement 6. Continue current antihypertensive medication 7. Increase by mouth fluid intake 8. Return to this clinic in 2 weeks the patient was instructed to call back sooner if GI symptoms recurred. 9. Hemoglobin A1c on return. We'll refer to endocrine for management if hyperglycemia persists after tapering prednisone. * Progress Notes - Eri Allan - 06/05/2018 7:29 AM EST Late entry: Received call from Nephrology fellow stating pt needed follow up Thursday with txp nephrology after ED visit. Advised pt to report to the clinic for labs and pt could likely be worked in with nephrology. Lab orders received and ordered into SCM. Primary coordinator notified. * Progress Notes - Eri Allan - 06/04/2018 9:33 AM EST Pt phoned the emergency line around 0015 stating that she had fever and severe dibilitating abdominal pain. She states she was recently treated for rejection. Advised pt report to ED for evalutaion. She did not want to go locally and will have someone take her to . Coordinator notified * Progress Notes - Wendy Jang - 06/02/2018 10:28 AM EST no change * Progress Notes - Amelia Gamble - 06/02/2018 8:14 AM EST Tacro level sent for MD review - current Tacro dose is 4/4 * Progress Notes - Naye Stanton - 05/31/2018 4:40 PM EST see notes above. called pt and discussed medication changes from clinic. SHe was confused about thedetails so clarifications made * Progress Notes - Naye Stanton - 05/31/2018 4:11 PM EST clinic note per Dr Gordon Plan: 1. Monitor tacrolimus level and adjust 2. Consider stopping calcineurin inhibitor and starting belatacept 3. Decrease prednisone 20 mg daily 4. Continue current antihypertensive medications 5. Continue to monitor serum glucose closely 6. DC Imuran and begin Myfortic 360 mg twice daily, call for any GI side effects 7. Return to this clinic in 2 weeks. * Progress Notes - Cleo Adams MD - 05/31/2018 3:46 PM EST Pt called from pharmacy to inquire what changes were b/c pharmacy only had one script called in when she thought it should be more. I gave this info to Naye who will contact pt/pharmacy with details. * Progress Notes - Cleo Adams MD - 05/14/2018 1:[address] Gordon, called pt and we r/s appt to 05-31-18 rather than Jun. Pt was agreeable. * Progress Notes - Thiago Gordon - 05/14/2018 8:29 AM EDT I do not see any response to steroids and believe we should see her back within 2 weeks rather thana month. * Progress Notes - Naye Stanton - 05/13/2018 6:07 PM EDT level sent for MD review. current tacro dose 4/. Also DSA resulted as follows: Comments Satisfactory [facility] HLA single antigen testing for the patient. The current specimen (05/06/18) does not contain donor specific antibodies. * Progress Notes - Nikki Mejia - 05/13/2018 2:19 PM EDT Pt seen in clinic Plan: 1. Since it appears that she has responded to steroids. I will plan to continue to taper her oral prednisone. I will decrease to 25 mg daily for 2 weeks. 2. Following that 2 weeks, I'll decrease prednisone to 20 mg daily for one month. 3. We will taper prednisone further and she is stable on the 20 mg dose. 4. I will schedule her to return to our clinic in one month. * Progress Notes - Naye Stanton - 05/12/2018 6:09 PM EDT Recent renal biopsy pathology results: : DIAGNOSIS [id number]: KIDNEY, ALLOGRAFT, NEEDLE CORE BIOPSY: [id number]: - BORDERLINE CHANGES SUSPICIOUS FOR ACUTE T-CELL MEDIATED CELLULAR REJECTION (i2, [id number]: t1, v0, g0, ptc1). [id number]: - MILD CORTICAL TUBULAR ATROPHY AND MODERATE TO SEVERE INTERSTITIAL EDEMA AND [id number]: FIBROSIS (ci2-3, ct2, cv0, cg1b, mm0, ah2). [id number]: - GLOBAL GLOMERULOSCLEROSIS INVOLVING TWO OUT OF EIGHTEEN GLOMERULI (2/18, 11%). [id number]: - C4D IMMUNOHISTOCHEMICAL STAIN PENDING SHOWS NEGATIVE STAINING IN THE PERITUBULAR [id number]: CAPILLARIES. [id number]: - BK VIRUS IMMUNOHISTOCHEMICAL STAIN IS NEGATIVE. : - SEE COMMENT AND MICROSCOPIC DESCRIPTION TEMPLATE. * Progress Notes - Naye Stanton - 05/10/2018 2:32 PM EDT Pred refilled x 1 week * Progress Notes - ProviderCleo MD - 05/10/2018 12:56 PM EDT Per VM received from Suzanne, pt was d/c'd on Thursday and needs a rtc on 05-13-18 so I called pt and scheduled for 10:30/12:00. Pt stated while on phone that they did not give her script for steriods but she had enough to make it thru weekend. Naye can you send steroid script to the [facility] for pt per above request? * Progress Notes - Naye Stanton - 05/06/2018 10:45 AM EDT pt currently admitted for GI sx. Renal team following * Progress Notes - Naye Stanton - 05/03/2018 3:19 PM EDT Multiple attempts to reach pt back to discuss GI sx. No answer. Left VM at [phone]. Per Dr Adkins, renal biopsy reviewed. Borderline Acute cellular rejection noted. Pt has been treated for it and should continue Pred 30mg, repeat local labs and RTC Thursday. Also, if GI sx still present, she will need stool studies for Comp GI panel and C-diff. * Progress Notes - Samra Adkins - 05/03/2018 3:11 PM EDT Preliminary results from renal allograft biopsy performed April [address] Caldera. She has changes suggestive of borderline acute cellular rejection, 18 glomeruli, 2 are globally sclerosed, she has moderate tubular atrophy, moderate to severe interstitial fibrosis, C4 D and BK stains are negative. Immunofluorescence is nonspecific, and not suggestive of IgA nephropathy. EM is pending at this time. Please obtain labs on , labs can be done locally, we can see her in clinic next Thursday, May 10 with labs including a spot urine protein, spot urine creatinine. patient received an IV Solu-Medrol pulse and is currently on prednisone 30 mg once a day. * Progress Notes - Eri Allan - 05/03/2018 11:26 AM EDT Pt phoned emergency line stating she cannot reach her coordinator. States she is having diarrhea after recent hospitalization. Advised her to [facility] for primary coordinator and that she will return the call to discuss. Coordinator notified * Progress Notes - Emily Umana - 04/30/2018 3:40 PM EDT Pt. received her Transplant from [facility], [place] in 2006. We will need to contact them for Donor HLA typing and UNOS Donor ID. * Progress Notes - Naye Stanton - 04/30/2018 8:00 AM EDT clinic note per Dr Gaston Plan: 1. Today I will plan to admit her to the hospital. 2. I would recommend giving her pulse Solu-Medrol 500 mg daily for 3 days. 3. We will plan to schedule a renal allograft biopsy for tomorrow. 4. Will probably recycle her oral steroids following the [place] to pulse. 5. Would also consider changing her from Imuran to CellCept if she is not planning on further pregnancies. * Progress Notes - ProviderCleo MD - 04/29/2018 11:31 AM EDT DOS 04/29/2018 renal scan (renogram), renal artery duplex scan. Pt has [employer] per rep NPR required for cpt codes [id number], [id number] * Progress Notes - Naye Stanton - 04/29/2018 10:21 AM EDT pt in clinic today. Informed we have left several message regarding dose change. She states she hasa new phone number which is now updated. Dose change discussed in clinic * Progress Notes - Naye Stanton - 04/28/2018 11:58 AM EDT 3rd message left for pt to please call and discuss medication changes * Progress Notes - Nikki Mejia - 04/27/2018 11:59 AM EDT LM for patient to call me regarding her <2 tacro level, need to see if she is actually taking it. She will also need a renal scan added when she arrives for clinic on . * Progress Notes - Naye Stanton - 04/27/2018 11:58 AM EDT LM for pt to call back and discuss * Progress Notes - Thiago Gordon - 04/27/2018 10:01 AM EDT tacrolimus 5 mg twice daily. Patient needs renal flow scan, likely not taking medicines and rejecting * Progress Notes - Naye Stanton - 04/27/2018 9:30 AM EDT tacro level undetectable and sent for MD review. current tacro dose 3/3. Unable to reach pt at thistime to discuss * Progress Notes - Nikki Mejia - 04/26/2018 2:52 PM EDT US reviewed with Dr. Gaston - No acute findings Plan to wait for tacro level and if that is not the reason for the jump, most likely will schedule biopsy. Pt will RTC on * Progress Notes - Nikki Mejia - 04/26/2018 11:45 AM EDT Pt seen in clinic Plan: 1. Today I'll check her tacrolimus level. 2. I will get a renal ultrasound today. 3. Depending on results of her tacrolimus and her renal ultrasound, we may need to schedule her fora renal biopsy to try to determine the etiology of her elevated creatinine. * Progress Notes - Cleo Adams MD - 04/20/2018 9:20 AM EDT Pt called to r/s missed appt for 04-26-18 t 1113:00 which I accomodated. * Progress Notes - Cleo Adams MD - 03/25/2018 1:08 PM EDT No, pt actually has appt on 04-08-18 and never had one on 03-08-18 so I changed labs in SCM and it must have been entered incorrectly into SCM. * Progress Notes - Naye Stanton - 03/25/2018 11:13 AM EDT was pt DNKA on 03-08-18? * Progress Notes - Cleo Adams MD - 11/10/2017 8:44 AM EDT Rec'd returned mail with forwarding address so I changed address and re-mailed out DNKA letter. * Levar Murphy - Cleo Adams MD - 11/10/2017 7:46 AM EDT DNKA letter sent to pt. * Levar Notes - Cleo Adams MD - 11/09/2017 12:19 PM EDT DNKA please contact to reschedule. * Progress Notes - ProviderCleo MD - 10/27/2017 5:03 PM EDT Rec'd VM from [facility] stating pt was being d/c'd today and needs a 2 wk rtc. Scheduled appt for 11-09-17 1112:30 and spoke to pt who was agreeable to this appt. Mailed appt reminder to pt per req. * Progress Notes - Naye Stanton - 09/30/2017 11:34 AM EDT Rec'd call from pharmacy informing [employer] travel agent has changed from Eusebio to Intas. Advised okay. Called and notified pt okay and suggested she have labs done in 1-2 weeks to ensure cr is stable. she states understanding. Order faxed to [facility] lab * Progress Notes - Amelia Gamble - 09/07/2017 4:10 PM EST Pt seen in ED on 09/06/17 for evaluation of flu symptoms. Pt was treated with Tyleno and IVF and pt was discharged home with RX for Tamiflu. Sending to pt primary coordinator for awareness. documented in this encounter Plan of Treatment Upcoming Encounters Date Type Department Care Team (Late st Contact Info) Description 09/14/2025 12:20 PM EST Office Visit [facility] Endocrinology [address] [place] [id number] Preeti Gomez MD [address] [place] [address] documented as of this encounter Procedures Procedure Name Priority Date/Time Associated Diagnosis Comments OTTR LAB RESULTS (MANUAL) Routine 04/04/2019 9:22 PM EDT OTTR LAB RESULTS (MANUAL) Routine 03/15/2019 3:19 AM EDT OTTR LAB RESULTS (MANUAL) Routine 03/03/2019 10:21 AM EDT OTTR LAB RESULTS (MANUAL) Routine 12/23/2018 1:15 PM EDT OTTR LAB RESULTS (MANUAL) Routine 11/15/2018 8:19 PM EDT OTTR LAB RESULTS (MANUAL) Routine 11/01/2018 5:55 AM EDT OTTR LAB RESULTS (MANUAL) Routine 10/31/2018 4:58 AM EDT OTTR LAB RESULTS (MANUAL) Routine 10/30/2018 5:39 AM EDT OTTR LAB RESULTS (MANUAL) Routine 10/29/2018 4:00 AM EDT OTTR LAB RESULTS (MANUAL) Routine 10/28/2018 8:32 AM EDT OTTR LAB RESULTS (MANUAL) Routine 10/27/2018 3:26 AM EDT OTTR LAB RESULTS (MANUAL) Routine 10/26/2018 2:36 AM EDT OTTR LAB RESULTS (MANUAL) Routine 10/24/2018 3:53 PM EDT OTTR LAB RESULTS (MANUAL) Routine 10/24/2018 4:25 AM EDT OTTR LAB RESULTS (MANUAL) Routine 10/23/2018 10:04 AM EDT OTTR LAB RESULTS (MANUAL) Routine 10/23/2018 2:10 AM EDT OTTR LAB RESULTS (MANUAL) Routine 10/22/2018 6:27 PM EDT OTTR LAB RESULTS (MANUAL) Routine 09/09/2018 8:33 AM EST OTTR LAB RESULTS (MANUAL) Routine 07/26/2018 9:11 AM EST OTTR LAB RESULTS (MANUAL) Routine 07/04/2018 2:41 PM EST OTTR LAB RESULTS (MANUAL) Routine 06/21/2018 1:46 PM EST OTTR LAB RESULTS (MANUAL) Routine 06/07/2018 8:48 AM EST OTTR LAB RESULTS (MANUAL) Routine 06/04/2018 1:50 AM EST OTTR LAB RESULTS (MANUAL) Routine 05/31/2018 11:40 AM EST OTTR LAB RESULTS (MANUAL) Routine 05/13/2018 10:22 AM EDT OTTR LAB RESULTS (MANUAL) Routine 05/07/2018 6:04 AM EDT OTTR LAB RESULTS (MANUAL) Routine 05/07/2018 4:00 AM EDT OTTR LAB RESULTS (MANUAL) Routine 05/05/2018 9:59 AM EDT OTTR LAB RESULTS (MANUAL) Routine 04/30/2018 4:05 AM EDT OTTR LAB RESULTS (MANUAL) Routine 04/29/2018 9:49 AM EDT OTTR LAB RESULTS (MANUAL) Routine 04/26/2018 11:16 AM EDT OTTR LAB RESULTS (MANUAL) Routine 11/26/2017 2:48 AM EDT OTTR LAB RESULTS (MANUAL) Routine 10/26/2017 5:32 AM EDT OTTR LAB RESULTS (MANUAL) Routine 10/25/2017 4:17 AM EDT OTTR LAB RESULTS (MANUAL) Routine 10/24/2017 5:33 PM EDT OTTR LAB RESULTS (MANUAL) Routine 10/24/2017 11:55 AM EDT OTTR LAB RESULTS (MANUAL) Routine 10/23/2017 4:00 AM EDT OTTR LAB RESULTS (MANUAL) Routine 10/22/2017 5:59 AM EDT documented in this encounter Results * OTTR LAB RESULTS (MANUAL) (04/04/2019 9:22 PM EDT) Pathologist [facility] External Estimated GFR 4.13 EXTERNAL LAB 04/04/2019 9:22 PM EDT Narrative EXTERNAL LAB - 04/04/2019 10:18 PM EDT Automated LAB Interface Historical Provider LAB BLOOD ORDERABLES Final [facility] Performing Organization Address [facility] Co de Phone Number EXTERNAL LAB * OTTR LAB RESULTS (MANUAL) (03/15/2019 3:19 AM EDT) Pathologist [facility] External Estimated GFR 6.41 EXTERNAL LAB 03/15/2019 3:19 AM EDT Narrative EXTERNAL LAB - 03/15/2019 5:02 AM EDT Automated LAB Interface Historical Provider LAB BLOOD ORDERABLES Final R esult EXTERNAL LAB * OTTR LAB RESULTS (MANUAL) (03/03/2019 10:21 AM EDT) External Estimated GFR 7.35 EXTERNAL LAB 03/03/2019 10:2 1 AM EDT Narrative EXTERNAL LAB - 03/03/2019 11:27 AM EDT Automated LAB Interface us Historical Provider LAB BLOOD ORDERABLES Final R esult Performing Organization Address [facility] de Phone Number EXTERNAL LAB * OTTR LAB RESULTS (MANUAL) (12/23/2018 1:15 PM EDT) External Estimated GFR 7.78 EXTERNAL LAB 12/23/2018 1:15 PM EDT Narrative EXTERNAL LAB - 12/23/2018 3:10 PM EDT Automated LAB Interface us Historical Provider LAB BLOOD ORDERABLES Final R esult Performing Organization Address [facility] de Phone Number EXTERNAL LAB * OTTR LAB RESULTS (MANUAL) (11/15/2018 8:19 PM EDT) External Estimated GFR 12.17 EXTERNAL LAB 11/15/2018 8:19 PM EDT Narrative EXTERNAL LAB - 11/15/2018 8:43 PM EDT Automated LAB Interface us Historical Provider LAB BLOOD ORDERABLES Final R esult Performing Organization Address [facility] de Phone Number EXTERNAL LAB * OTTR LAB RESULTS (MANUAL) (11/01/2018 5:55 AM EDT) External Estimated GFR 9.87 EXTERNAL LAB 11/01/2018 5:55 AM EDT Narrative EXTERNAL LAB - 11/01/2018 6:36 AM EDT Automated LAB Interface us Historical Provider LAB BLOOD ORDERABLES Final R esult Performing Organization Address [facility] Co de Phone Number EXTERNAL LAB * OTTR LAB RESULTS (MANUAL) (10/31/2018 4:58 AM EDT) External Estimated GFR 9.80 EXTERNAL LAB 10/31/2018 4:58 AM EDT Narrative EXTERNAL LAB - 10/31/2018 2:14 PM EDT Automated LAB Interface us Historical Provider LAB BLOOD ORDERABLES Final R esult EXTERNAL LAB * OTTR LAB RESULTS (MANUAL) (10/30/2018 5:39 AM EDT) External Estimated GFR 10.57 EXTERNAL LAB 10/30/2018 5:39 AM EDT Narrative EXTERNAL LAB - 10/30/2018 6:30 AM EDT Automated LAB Interface us Historical Provider LAB BLOOD ORDERABLES Final R esult Performing Organization Address City/[facility] Co de Phone Number EXTERNAL LAB * OTTR LAB RESULTS (MANUAL) (10/29/2018 4:00 AM EDT) External Estimated GFR 14.03 EXTERNAL LAB 10/29/2018 4:00 AM EDT Narrative EXTERNAL LAB - 10/29/2018 2:56 AM EDT Automated LAB Interface Historical Provider LAB BLOOD ORDERABLES Final R esult Performing Organization Address [facility] de Phone Number EXTERNAL LAB * OTTR LAB RESULTS (MANUAL) (10/28/2018 8:32 AM EDT) External Estimated GFR 10.82 EXTERNAL LAB 10/28/2018 8:32 AM EDT Narrative EXTERNAL LAB - 10/28/2018 9:30 AM EDT Automated LAB Interface us Historical Provider LAB BLOOD ORDERABLES Final R esult Performing Organization Address [facility] Co de Phone Number EXTERNAL LAB * OTTR LAB RESULTS (MANUAL) (10/27/2018 3:26 AM EDT) External Estimated GFR 9.18 EXTERNAL LAB 10/27/2018 3:26 AM EDT Narrative EXTERNAL LAB - 10/27/2018 4:16 AM EDT Automated LAB Interface us Historical Provider LAB BLOOD ORDERABLES Final R esult Performing Organization Address City/[facility]/ZIP Co de Phone Number EXTERNAL LAB * OTTR LAB RESULTS (MANUAL) (10/26/2018 2:36 AM EDT) External Estimated GFR 9.39 EXTERNAL LAB 10/26/2018 2:36 AM EDT Narrative EXTERNAL LAB - 10/26/2018 3:41 AM EDT Automated LAB Interface us Historical Provider LAB BLOOD ORDERABLES Final R esult Performing Organization Address City/[facility] Co de Phone Number EXTERNAL LAB * OTTR LAB RESULTS (MANUAL) (10/24/2018 3:53 PM EDT) External BK Virus Quant DNA By PCR Blood/Plasma <500 EXTERNAL LAB 10/24/2018 3:53 PM EDT Narrative EXTERNAL LAB - 11/01/2018 3:53 PM EDT [facility] Historical Provider LAB BLOOD ORDERABLES Final R esult Performing Organization Address [facility] de Phone Number EXTERNAL LAB * OTTR LAB RESULTS (MANUAL) (10/24/2018 4:25 AM EDT) Pathologist [facility] External Estimated GFR 8.25 EXTERNAL LAB 10/24/2018 4:25 AM EDT Narrative EXTERNAL LAB - 10/24/2018 5:00 AM EDT Automated LAB Interface Historical Provider LAB BLOOD ORDERABLES Final R esult Performing Organization Address [facility] Co de Phone Number EXTERNAL LAB * OTTR LAB RESULTS (MANUAL) (10/23/2018 10:04 AM EDT) External Estimated GFR 8.08 EXTERNAL LAB 10/23/2018 10:0 4 AM EDT Narrative EXTERNAL LAB - 10/23/2018 10:46 AM EDT Automated LAB Interface Historical Provider LAB BLOOD ORDERABLES Final R esult Performing Organization Address City/[facility]/ZIP Co de Phone Number EXTERNAL LAB * OTTR LAB RESULTS (MANUAL) (10/23/2018 2:10 AM EDT) External Estimated GFR 7.90 EXTERNAL LAB 10/23/2018 2:10 AM EDT Narrative EXTERNAL LAB - 10/23/2018 9:11 AM EDT Automated LAB Interface us Historical Provider LAB BLOOD ORDERABLES Final R esult EXTERNAL LAB * OTTR LAB RESULTS (MANUAL) (10/22/2018 6:27 PM EDT) External Estimated GFR 7.54 EXTERNAL LAB 10/22/2018 6:27 PM EDT Narrative EXTERNAL LAB - 10/22/2018 7:04 PM EDT Automated LAB Interface us Historical Provider LAB BLOOD ORDERABLES Final R esult EXTERNAL LAB * OTTR LAB RESULTS (MANUAL) (09/09/2018 8:33 AM EST) External HLA Locus A 2,24 EXTERNAL LAB External HLA Locus B 35,57 EXTERNAL LAB External HLA Locus Dr 7,11 EXTERNAL LAB 09/09/2018 8:33 AM EST Narrative EXTERNAL LAB - 09/17/2018 8:34 AM EST [facility] Historical Provider LAB BLOOD ORDERABLES Final R esult EXTERNAL LAB * OTTR LAB RESULTS (MANUAL) (07/26/2018 9:11 AM EST) External Estimated GFR 17.17 EXTERNAL LAB 07/26/2018 9:11 AM EST Narrative EXTERNAL LAB - 07/26/2018 10:28 AM EST Automated LAB Interface us Historical Provider LAB BLOOD ORDERABLES Final R esult EXTERNAL LAB * OTTR LAB RESULTS (MANUAL) (07/04/2018 2:41 PM EST) External Tacrolimus Level 4.0 ng/mL EXTERNAL LAB External Hematocrit (Hct) 33.1 % EXTERNAL LAB External Hemoglobin (Hgb) 11.2 gm/dL EXTERNAL LAB External WBC 8.7 k/uL EXTERNAL LAB External Platelet Count (Plt) 265 k/uL EXTERNAL LAB External BUN 28 mg/dL EXTERNAL LAB External Creatinine Blood 3.00 mg/dL EXTERNAL LAB External Sodium (Na) 140 mmol/L EXTERNAL LAB External Potassium (K) 4.3 mmol/L EXTERNAL LAB External Carbon Dioxide (CO2) 24 mmol/L EXTERNAL LAB External Chloride (Cl) 106 mmol/L EXTERNAL LAB External Calcium (Ca) 9.1 mg/dL EXTERNAL LAB External Phosphorus 4.8 mg/dL EXTERNAL LAB External Glucose 140 mg/dL EXTERNAL LAB External Albumin 3.3 g/dL EXTERNAL LAB External Magnesium (Mg) 1.6 mg/dL EXTERNAL LAB External Urine Leukocyte Esterase negative EXTERNAL LAB External Urine WBC 0-3 /HPF EXTERNAL LAB External Urine RBC rare /HPF EXTERNAL LAB External Urine Blood trace EXTERNAL LAB External Urine Protein 2+ mg/dL EXTERNAL LAB External Urine Nitrite negative EXTERNAL LAB External Urine Glucose negative mg/dL EXTERNAL LAB External Urine Specific Dawson 1.015 EXTERNAL LAB External Urine pH 6.0 EXTERNAL LAB External Estimated GFR 19.10 EXTERNAL LAB 07/04/2018 2:41 PM EST Narrative EXTERNAL LAB - 07/04/2018 2:54 PM EST [facility] Historical Provider LAB BLOOD ORDERABLES Final R esult EXTERNAL LAB * OTTR LAB RESULTS (MANUAL) (06/21/2018 1:46 PM EST) Pathologist [facility] External BK Virus Quant DNA By PCR Blood/Plasma <500 EXTERNAL LAB 06/21/2018 1:46 PM EST Narrative EXTERNAL LAB - 06/24/2018 1:47 PM EST [facility] Historical Provider LAB BLOOD ORDERABLES Final R esult EXTERNAL LAB * OTTR LAB RESULTS (MANUAL) (06/07/2018 8:48 AM EST) External Estimated GFR 24.71 EXTERNAL LAB 06/07/2018 8:48 AM EST Narrative EXTERNAL LAB - 06/07/2018 10:01 AM EST Automated LAB Interface Historical Provider LAB BLOOD ORDERABLES Final R esult Performing Organization Address City/[facility]/ZIP Co de Phone Number EXTERNAL LAB * OTTR LAB RESULTS (MANUAL) (06/04/2018 1:50 AM EST) External Estimated GFR 24.71 EXTERNAL LAB 06/04/2018 1:50 AM EST Narrative EXTERNAL LAB - 06/04/2018 3:39 AM EST Automated LAB Interface Historical Provider LAB BLOOD ORDERABLES Final R esult Performing Organization Address [facility] Co de Phone Number EXTERNAL LAB * OTTR LAB RESULTS (MANUAL) (05/31/2018 11:40 AM EST) External Estimated GFR 28.06 EXTERNAL LAB 05/31/2018 11:4 0 AM EST Narrative EXTERNAL LAB - 05/31/2018 12:47 PM EST Automated LAB Interface Historical Provider LAB BLOOD ORDERABLES Final R esult Performing Organization Address [facility] Co de Phone Number EXTERNAL LAB * OTTR LAB RESULTS (MANUAL) (05/13/2018 10:22 AM EDT) External Estimated GFR 31.22 EXTERNAL LAB 05/13/2018 10:2 2 AM EDT Narrative EXTERNAL LAB - 05/13/2018 11:12 AM EDT Automated LAB Interface Historical Provider LAB BLOOD ORDERABLES Final R esult EXTERNAL LAB * OTTR LAB RESULTS (MANUAL) (05/07/2018 6:04 AM EDT) External Estimated GFR 35.12 EXTERNAL LAB 05/07/2018 6:04 AM EDT Narrative EXTERNAL LAB - 05/07/2018 6:45 AM EDT Automated LAB Interface us Historical Provider LAB BLOOD ORDERABLES Final R esult EXTERNAL LAB * OTTR LAB RESULTS (MANUAL) (05/07/2018 4:00 AM EDT) External Estimated GFR 50.14 EXTERNAL LAB 05/07/2018 4:00 AM EDT Narrative EXTERNAL LAB - 05/07/2018 5:42 AM EDT Automated LAB Interface us Historical Provider LAB BLOOD ORDERABLES Final R esult EXTERNAL LAB * OTTR LAB RESULTS (MANUAL) (05/05/2018 9:59 AM EDT) External Estimated GFR 31.97 EXTERNAL LAB 05/05/2018 9:59 AM EDT Narrative EXTERNAL LAB - 05/05/2018 11:30 AM EDT Automated LAB Interface us Historical Provider LAB BLOOD ORDERABLES Final R esult Performing Organization Address City/[facility] Co de Phone Number EXTERNAL LAB * OTTR LAB RESULTS (MANUAL) (04/30/2018 4:05 AM EDT) External Estimated GFR 25.07 EXTERNAL LAB 04/30/2018 4:05 AM EDT Narrative EXTERNAL LAB - 04/30/2018 5:39 AM EDT Automated LAB Interface us Historical Provider LAB BLOOD ORDERABLES Final R esult EXTERNAL LAB * OTTR LAB RESULTS (MANUAL) (04/29/2018 9:49 AM EDT) External Estimated GFR 25.44 EXTERNAL LAB 04/29/2018 9:49 AM EDT Narrative EXTERNAL LAB - 04/29/2018 11:13 AM EDT Automated LAB Interface us Historical Provider LAB BLOOD ORDERABLES Final R esult Performing Organization Address City/[facility] Co de Phone Number EXTERNAL LAB * OTTR LAB RESULTS (MANUAL) (04/26/2018 11:16 AM EDT) Pathologist [facility] External Estimated GFR 28.06 EXTERNAL LAB 04/26/2018 11:1 6 AM EDT Narrative EXTERNAL LAB - 04/26/2018 12:33 PM EDT Automated LAB Interface Historical Provider LAB BLOOD ORDERABLES Final R esult Performing Organization Address [facility] de Phone Number EXTERNAL LAB * OTTR LAB RESULTS (MANUAL) (11/26/2017 2:48 AM EDT) Pathologist [facility] External Estimated GFR 62.10 EXTERNAL LAB 11/26/2017 2:48 AM EDT Narrative EXTERNAL LAB - 11/26/2017 3:24 AM EDT Automated LAB Interface Historical Provider LAB BLOOD ORDERABLES Final R esult Performing Organization Address [facility] de Phone Number EXTERNAL LAB * OTTR LAB RESULTS (MANUAL) (10/26/2017 5:32 AM EDT) Pathologist [facility] External Estimated GFR 77.12 EXTERNAL LAB 10/26/2017 5:32 AM EDT Narrative EXTERNAL LAB - 10/26/2017 6:34 AM EDT Automated LAB Interface Historical Provider LAB BLOOD ORDERABLES Final R esult Performing Organization Address [facility] Co de Phone Number EXTERNAL LAB * OTTR LAB RESULTS (MANUAL) (10/25/2017 4:17 AM EDT) Pathologist [facility] External Estimated GFR 69.90 EXTERNAL LAB 10/25/2017 4:17 AM EDT Narrative EXTERNAL LAB - 10/25/2017 5:31 AM EDT Automated LAB Interface Historical Provider LAB BLOOD ORDERABLES Final R esult Performing Organization Address [facility] Co de Phone Number EXTERNAL LAB * OTTR LAB RESULTS (MANUAL) (10/24/2017 5:33 PM EDT) External BK Virus Quant DNA By PCR Blood/Plasma <500 EXTERNAL LAB 10/24/2017 5:33 PM EDT Narrative EXTERNAL LAB - 10/29/2017 5:34 PM EDT Transplant Center Historical Provider LAB BLOOD ORDERABLES Final R esult Performing Organization Address City/[facility] Co de Phone Number EXTERNAL LAB * OTTR LAB RESULTS (MANUAL) (10/24/2017 11:55 AM EDT) External Estimated GFR 63.16 EXTERNAL LAB 10/24/2017 11:5 5 AM EDT Narrative EXTERNAL LAB - 10/24/2017 2:38 PM EDT Automated LAB Interface Historical Provider LAB BLOOD ORDERABLES Final R esult Performing Organization Address [facility] de Phone Number EXTERNAL LAB * OTTR LAB RESULTS (MANUAL) (10/23/2017 4:00 AM EDT) External Estimated GFR 65.27 EXTERNAL LAB 10/23/2017 4:00 AM EDT Narrative EXTERNAL LAB - 10/23/2017 7:28 AM EDT Automated LAB Interface Historical Provider LAB BLOOD ORDERABLES Final R esult Performing Organization Address [facility] de Phone Number EXTERNAL LAB * OTTR LAB RESULTS (MANUAL) (10/22/2017 5:59 AM EDT) External Estimated GFR 61.18 EXTERNAL LAB 10/22/2017 5:59 AM EDT Narrative EXTERNAL LAB - 10/22/2017 8:28 AM EDT Automated LAB Interface Historical Provider LAB BLOOD ORDERABLES Final R esult Performing Organization Address City/[facility]/ZIP Co de Phone Number EXTERNAL LAB documented in this encounter Visit Diagnoses Not on filedocumented in this encounter Additional Health Concerns Infection Onset Date Last Indicated Resolved Time Gastrointestinal Rule-Out 05/05/2018 05/05/2018 5:23 AM EDT C. difficile Comment:1:03:09 AM 11/15/2018 11/15/2018 11/16/2018 12:00 AM EDT C. difficile Rule-Out 08/15/2019 08/15/20192020 5:23 AM EDT Gastrointestinal Rule-Out 08/18/2019 08/18/2019 5:23 AM EDT Respiratory Rule-Out 06/24/2020 06/24/2020 021 5:24 AM EDT 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 COVID-19 Rule-Out 08/12/2021 08/12/2021 08/13/2021 1:52 AM EST COVID 19 (Confirmed) Comment:[facility] has contacted the patient regarding their positive COVID-19 test. Patient instructed that the local Health Dept. will be contacting them with a quarantine notice and to discuss contact tracing and should remain at home/isolated until notified. Patient was educated that if symptoms progress and they become short of air to proceed to the nearest ED. [facility] Deputy Commissioner: Shelley Manzo 08/12/2021 08/12/202109/02 5:23 AM EST COVID-19 Rule-Out 09/24/2021 09/24/2021 09/24/2021 6:17 PM EDT documented as of this encounter Care Teams Windows Infrastructure Engineer Relationship Specialty [place] [address] [place] [id number] PCP - General 12/20/20 08/11/21 Octaviano Cabrera PA [address] [place] [phone] PCP - General Internal Medicine 08/12/21 02/26/25 Terry Ag MD [address] [place] [phone] Transplant Physician Transplant Surgery 12/02/20 Lee Ellis MD [address] [place] [address] Transplant Physician Transplant Surgery 12/02/20 Cici Wiley [id number] Surgical Navigator Transplant 12/02/20 Aleksandra Mensah RN [facility] [address] [place] [id number] Surgical Navigator Transplant Surgery 02/15/21 Josie Moseley [address] [place] [address] Mechanical Engineering Technician 04/13/24 04/13/25 documented as of this encounter
--- OUTSIDE RECORDS SUMMARY | 2025-06-14 15:27 | XMS_ITS | Encounter Summary ---
Author Organization Healthcare Address [address] [place] [address] Care Team Providers Care Corrections Identification Technician Name Role Phone Terry gA MD Unavailable Lee Ellis MD Unavailable [phone] Cici Wiley Unavailable Unavailable Jarvis Bennett MD Primary Care Provider [phone] Aleksandra Mensah RN Unavailable Unavailable Octaviano Cabrera Primary Care Provider [phone] Josie Moseley Unavailable [phone] Encounter Details Date Type Department Care Team (Late st Contact Info) Description 06/19/2016 [facility] Encounter Historical OTTR [address] [place] [address] Naye Beebe, RN [id number] Social History Tobacco Use Types Packs/Day Years Used Date Smoking Tobacco: Never Assessed Comments Unknown Sex and Gender Information Value Date Recorded Sex Assigned at Female 07/25/2021 7:30 AM EST Legal Sex Female 7:46 PM EDT Gender Identity Female 07/25/2021 7:30 AM EST Sexual Orientation Not on file documented as of this encounter Miscellaneous Notes * Progress Notes - Eri Allan - 04/16/2017 1:31 PM EDT Pt phoned the emergency line stating that she is having severe abdominal cramping with emesis x 2 and water diarrhea for the last 6-8 hours. She also states she has passed out three times during these episodes. Advised her that if she has experienced LOC she needs a medical evaluation today. She denies fever or visible blood in the stool. States she doesn't want to go to the local ED and I advised her to phone her PCP to be seen today or go to ED. She voiced understanding. Primary coordinator notified. * Progress Notes - Cleo Adams MD - 04/10/2017 10:13 AM EDT Scheduled Dermatology appt for 04-21-17 with Mary Mensah. Called pt and she was agreeable to go to this appt. Note to nurse to inform. * Progress Notes - Wendy Jang - 04/09/2017 5:16 PM EDT she admits of intermittent non adherence, I do not see the point of making any changes based on hervariable levels. no change to tac dose today * Progress Notes - Nikki Mejia - 04/09/2017 4:28 PM EDT Pt seen in txp clinic, level sent for MD review. Current dose of tacro is 3mg bid * Progress Notes - Nikki Mejia - 04/09/2017 4:[address] Jang, pt needs consult to dermatology for overall skin evaluation in transplant patient. * Progress Notes - Nikki Mejia - 04/09/2017 4:04 PM EDT Pt seen in clinic by Dr. 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 continue immuran. - intermittent meds non adherence, I spoke and assured to her the importance of taking her meds - HTN well controlled - she will need a dermatology referral here - GERD, will send her a prescription of Zofran. - polyarthritis?, negative serology per patient, to see rehumatology. (per Dr. Jang, this is not needed, she has her own rhum MD) * Progress Notes - Nikki Mejia - 04/09/2017 4:02 PM EDT Pt seen in clinic, level sent for MD review. Current dose of tacro is 3mg bid. * Progress Notes - Cleo Adams MD - 03/12/2017 12:44 PM EDT Moved appt from Mar.19 to per phone conversation with pt. Mailed appt reminder per request. * Progress Notes - Thiago Gordon - 09/22/2016 4:20 PM EDT no change * Progress Notes - Amelia Gamble - 09/22/2016 4:09 PM EDT Tacro level sent for MD review - current Tacro dose is 4/3. * Progress Notes - ProviderCleo MD - 09/17/2016 3:08 PM EST lab only scheduled per above note. * Progress Notes - Naye Stanton - 09/17/2016 2:57 PM EST called pt to see if tacro dose change labs were done.she has not had a chance to do but would like to come to clinic for lab only on 09/22. orders entered in [facility] * Progress Notes - Nikki Mejia - 09/04/2016 5:52 PM EST Received VO from Dr. Wayne to decrease tacro to 4mg am/3mg pm. Pt notified and will have her labs repeated in 7-10 days.l * Progress Notes - Nikki Mejia - 09/04/2016 3:50 PM EST PT returned call, she did not take her meds prior to the labs being drawn. Level sent for MD review. * Progress Notes - Nikki Mejia - 09/04/2016 2:56 PM EST LM for pt to call regarding whether or not she may have taken her tacro prior to her labs being drawn on Thursday, level was high for her. * Progress Notes - Naye Stanton - 06/19/2016 10:37 AM EST pt called informing she saw pcp today and was diagnosed with shingles. SHe was given acyclovir TID x7days and wants to ensure it's okay to take. Advised okay for pt to take and if sx do not improve she needs to see pcp again for another course. She states understanding and will call if any changes * Progress Notes - Naye Stanton - 05/07/2016 2:28 PM EDT Rec'd vm from Dr Castillo at dental clinic. pt had myalgia in the TMJ joint. He states he would like to give pt medrol dose shin as NSAIDs are contraindicated with her txp and asked if this is okay. Unable to reach MD back. LM for him advising MDP is safe to take and to callback if any further concerns * Progress Notes - Naye Stanton - 04/16/2016 4:00 PM EDT pt called stating her niece was diagnosed with 6th's dz (fever and rash). She was exposed while child had fever. Advised she should monitor herself for symptoms and call urgently if they develop. Also encouraged to sanitize home as child was in her home. She states understanding and denies any sx at this time. She will update coordinator of any changes * Progress Notes - ProviderCleo MD - 04/07/2016 3:54 PM EDT posted labs and urine cx to all docs dos 04-02-16 and notified nurse coordinator.urine cx showed no growth at overnight incubation and mixed edmar. * Progress Notes - Naye Stanton - 04/07/2016 12:50 PM EDT outside labs reviewed. Tacro level stable after recent dose change. RFP, CBC and UA not rec'd. Unsure why urine cx was done. Contacted [facility] to fax additional lab tests. Will await further results * Progress Notes - Amelia Gamble - 04/04/2016 2:23 PM EDT Tacrolimus level sent for MD review - current Tacro dose is 4/4 * Progress Notes - Amelia Gamble - 04/04/2016 11:49 AM EDT Urine culture results received from 04/02, and document uploaded into [facility] for reference. Urine culture shows mixed edmar indicating contamination and repeat specimen is advised. Sending to primary coordinator to discuss with pt. * Progress Notes - Naye Stanton - 03/31/2016 9:41 AM EDT called pt to see if tacro dose change labs were done. She states she was not aware and will do thisweek * Progress Notes - Naye Stanton - 03/14/2016 3:56 PM EDT pt notified of tacro dose change and will repeat labs locally at the end of next week * Progress Notes - Samra Adkins - 03/14/2016 2:52 PM EDT please decrease Prograf to 4 mg twice a day. Repeat a Prograf level in one week * Progress Notes - Naye Stanton - 03/14/2016 2:39 PM EDT labs sent for MD review. current tacro dose 5/4 * Progress Notes - Cleo Adams MD - 02/11/2016 9:48 AM EDT scheudled 03-13-16 appt per above note. * Progress Notes - Cleo Adams MD - 02/07/2016 10:33 AM EDT scheduled appt per above note. * Progress Notes - Naye Stanton - 02/07/2016 10:22 AM EDT refill request rec'd from pharmacy. Called pt as she missed last appt. Rescheduled for 03/13/16 at 930/1045. Refills escribed * Progress Notes - Cleo Adams MD - 02/04/2016 12:29 PM EDT DNKA please contact to reschedule. * Progress Notes - Cleo Adams MD - 12/31/2015 4:39 PM EDT pt called and left VM to r/s missed appt. i r/s appt for 02-04-16 and tried to call pt back. Left VMthat appt will be r/s for 02-04-16 with labs at 8:30. Asked pt to call back to verify receipt of mesage. Also mailed appt reminder of this appt. * Progress Notes - Amelia Gamble - 12/25/2015 5:[address] Adkins returned call and pt to start on Valtrex 1 gm bid for 10 days after she consulted with ID physician. Pt strongly advised to have mother in law take care of children and for her to either leave the home for her and/or mother in law to care for the children or for her childrento go to her mother in law's home until the lesions have scabbed over on both the children. Pt alsoinformed to wear gloves if there are no other caregivers available and to not touch any bodily fluids of her children and do not touch the children without gloves unfortunately. Pt verbalized understanding of this. Valtrex e- submitted to pharmacy in [facility] for pt and pt to call with update on whom will care for children on 12/26/15. Pt understands that if she remains around children she is athigh risk for getting the chicken pox herself since pt verbalized she has never had them. Will sendto pt nurse coordinator and continue to follow pt closely. * Progress Notes - Amelia Gamble - 12/25/2015 5:09 PM EDT Pt called when she had children in the Pediatric visit for check up and both children ages 3 and 5 were diagnosed with chicken pox per pt mitchel. Pt advised to wear gloves with children if possible and try to get another caregiver for children since pt verbalized she has never had the chicken pox. Pt verbalized that her spouse and/or her mother in law could help care for children. Discussed with Dr. Adkins whom verbalized she needs to be away from the children until active lesions have scabbed over. Dr. Adkins is calling ID physician to determine if any prophylactic medication shouldbe taken by patient. Awaiting return call. * Progress Notes - Cleo Adams MD - 11/23/2015 9:20 AM EDT MCKENZIE letter mailed to pt. * Progress Notes - Cleo Adams MD - 11/22/2015 3:36 PM EDT MCKENZIE please contact to reschedule. * Progress Notes - Naye Stanton - 09/28/2015 4:17 PM EDT pt called requesting recent lab results. Informed labs stable. she states she was feeling better until pred taper ended and now has c/o pain and fullness in ears. she has ENT appt next week. Advised she may see pcp or [facility] in the meantime if necessary and to notify coordinator of any additional changes. she verbalized understanding * Progress Notes - Naye Stanton - 09/18/2015 1:32 PM EST outside labs reviewed. pt with slightly elevated Cr (recently given 3 courses of bactrim for sinus infection). pt notified to repeat labs next week and if Cr increased will need RTC. She also c/o feeling dizzy and my heart racing a couple of times a day. pt also states FSBG is running 150-175 within 3 hrs after eating (she is not a known diabetic). She just finished course of antibx for sinus infection and finishes pred taper tmrw. Advised sx may be related to taking prednisone and infection.She reports sx are improved and takes VS reularly. b/p averaging 120/70 with HR80s. Encouraged to discuss sx with ordering MD and see pcp if not resolving after tmrw. Explained appropriate use of theED. pt states sx are tolerable and states understanding. pt notified to call coordinator if any changes * Progress Notes - Cleo Adams MD - 09/13/2015 3:39 PM EST appt changed to 10-05-[address] Lee at 9:00. Appt schedule sent to pt with all info.after conversation w/pt. * Progress Notes - Cleo Adams MD - 09/13/2015 11:43 AM EST Scheduled f/a appointment of 10-24-[address] Lee however I have requested an overbook of this and they shall get back to me with a sooner appt and they also stated they will notify pt upon scheduling of new appt. * Progress Notes - Naye Stanton - 09/12/2015 4:35 PM EST spoke with pt regarding recent cinus infections. She states they have been reoccurring for 2 months. She was given 2 courses of bactrim, augmentin, zpak and prednisone. As of today augmenting has been stopped due to GI SE and zpak given. Advised to always coordinator with new meds as bactrim is notideal. Informed she needs to have local labs done. lab order faxed to [facility]. pt will have donethis week. Advised will consult [facility] and call with appt info * Progress Notes - Martina Raymundo - 09/12/2015 11:46 AM EST Patient called and stated she has had a sinus infection for 2 1/2 months. Her PCP has prescribed her bactrum and omnicef. She saw someone else (pharmacist or clinic in grocery store?) who prescribed her Augmentin and prednisone. She is having an allergic reaction to the Augmentin (hives) and can non longer take it. She has tried to get in to see ENT here at but it has been 3 years since she has been seen so they are treating her like a new pt and her appt is October 17. She is unable to get an appt with Internal Medicine at anytime in the near future. She wants to know if we can help gether in to ENT or IM sooner as she is a transplant patient. Advised that we will talk to one of our physicians and/or ENT/IM and return her call. * Progress Notes - Naye Stanton - 08/28/2015 2:10 PM EST Called pt to notify of PPI denial . she states she has seen GI recently and had Upper GI. They havebeen prescribing her another PPI. Instructed pt to f/u with GI for additional PA needs. she states understanding * Progress Notes - Cleo Adams MD - 08/28/2015 10:38 AM EST posted Omeprazole denial to all docs date of 08-27-15 and notified parties involved of this info. * Progress Notes - Cleo Adams MD - 08/28/2015 8:00 AM EST PA for omeprazole denied. Plan prefers pantoprazole, OTC Nexium, OTC Prevacid, or OTC omeprazole. Pt must have trial and failure of two preferred PPI's before plan will pay for prescription omeprazole. * Progress Notes - ProviderCleo MD - 08/27/2015 2:20 PM EST PA for omeprazole has been submitted documented in this encounter Plan of Treatment Upcoming Encounters Date Type Department Care Team (Late st Contact Info) Description 09/14/2025 12:20 PM EST Office Visit [facility] [address] [place] [address] Preeti Gomez MD [address] [facility] [address] [place] [address] documented as of this encounter Procedures Procedure Name Priority Date/Time Associated Diagnosis Comments OTTR LAB RESULTS (MANUAL) Routine 04/17/2017 3:18 AM EDT OTTR LAB RESULTS (MANUAL) Routine 04/16/2017 2:43 PM EDT OTTR LAB RESULTS (MANUAL) Routine 09/22/2016 11:34 AM EDT OTTR LAB RESULTS (MANUAL) Routine 09/01/2016 10:19 AM EST OTTR LAB RESULTS (MANUAL) Routine 04/02/2016 3:47 PM EDT OTTR LAB RESULTS (MANUAL) Routine 04/02/2016 2:22 PM EDT OTTR LAB RESULTS (MANUAL) Routine 03/13/2016 10:07 AM EDT OTTR LAB RESULTS (MANUAL) Routine 09/26/2015 5:02 PM EDT OTTR LAB RESULTS (MANUAL) Routine 09/14/2015 8:44 AM EST documented in this encounter Results * OTTR LAB RESULTS (MANUAL) (04/17/2017 3:18 AM EDT) External Estimated GFR 61.83 EXTERNAL LAB 04/17/2017 3:18 AM EDT Narrative EXTERNAL LAB - 04/17/2017 4:08 AM EDT Automated LAB Interface Historical Provider LAB BLOOD ORDERABLES Final R esult Performing Organization Address City/[facility] Co de Phone Number EXTERNAL LAB * OTTR LAB RESULTS (MANUAL) (04/16/2017 2:43 PM EDT) External Estimated GFR 69.09 EXTERNAL LAB 04/16/2017 2:43 PM EDT Narrative EXTERNAL LAB - 04/16/2017 3:24 PM EDT Automated LAB Interface Historical Provider LAB BLOOD ORDERABLES Final R esult EXTERNAL LAB * OTTR LAB RESULTS (MANUAL) (09/22/2016 11:34 AM EDT) External Estimated GFR 68.73 EXTERNAL LAB 09/22/2016 11:3 4 AM EDT Narrative EXTERNAL LAB - 09/22/2016 1:54 PM EDT Automated LAB Interface Historical Provider LAB BLOOD ORDERABLES Final R esult Performing Organization Address [facility] Co de Phone Number EXTERNAL LAB * OTTR LAB RESULTS (MANUAL) (09/01/2016 10:19 AM EST) External Tacrolimus Level 9.5 ng/mL EXTERNAL LAB External WBC 6.1 k/uL EXTERNAL LAB External Platelet Count (Plt) 264 k/uL EXTERNAL LAB External Hematocrit (Hct) 33.3 % EXTERNAL LAB External Hemoglobin (Hgb) 10.5 gm/dL EXTERNAL LAB External Albumin 3.7 g/dL EXTERNAL LAB External Magnesium (Mg) 1.6 mg/dL EXTERNAL LAB External BUN 10 mg/dL EXTERNAL LAB External Creatinine Blood 1.0 mg/dL EXTERNAL LAB External Sodium (Na) 138 mmol/L EXTERNAL LAB External Potassium (K) 4.1 mmol/L EXTERNAL LAB External Carbon Dioxide (CO2) 25 mmol/L EXTERNAL LAB External Chloride (Cl) 103 mmol/L EXTERNAL LAB External Calcium (Ca) 8.8 mg/dL EXTERNAL LAB External Phosphorus 3.1 mg/dL EXTERNAL LAB External Glucose 178 mg/dL EXTERNAL LAB External Urine Leukocyte Esterase Negative EXTERNAL LAB External Urine WBC none /HPF EXTERNAL LAB External Urine Blood 250 EXTERNAL LAB External Urine Protein 30 mg/dL EXTERNAL LAB External Urine Nitrite Negative EXTERNAL LAB External Urine Glucose normal mg/dL EXTERNAL LAB External Estimated GFR 68.73 EXTERNAL LAB 09/01/2016 10:1 9 AM EST Narrative EXTERNAL LAB - 09/03/2016 9:27 AM EST [facility] Historical Provider LAB BLOOD ORDERABLES Final R esult Performing Organization Address [facility] Co de Phone Number EXTERNAL LAB * OTTR LAB RESULTS (MANUAL) (04/02/2016 3:47 PM EDT) External WBC 5.5 k/uL EXTERNAL LAB External Hematocrit (Hct) 11.7 % EXTERNAL LAB External Platelet Count (Plt) 242 k/uL EXTERNAL LAB External BUN 10 mg/dL EXTERNAL LAB External Creatinine Blood 1.0 mg/dL EXTERNAL LAB External Sodium (Na) 142 mmol/L EXTERNAL LAB External Potassium (K) 4.2 mmol/L EXTERNAL LAB External Carbon Dioxide (CO2) 26 mmol/L EXTERNAL LAB External Chloride (Cl) 107 mmol/L EXTERNAL LAB External Calcium (Ca) 9.3 mg/dL EXTERNAL LAB External Phosphorus 3.5 mg/dL EXTERNAL LAB External Glucose 124 mg/dL EXTERNAL LAB External Albumin 3.7 g/dL EXTERNAL LAB External Urine Glucose normal mg/dL EXTERNAL LAB External Urine Leukocyte Esterase trace EXTERNAL LAB External Magnesium (Mg) 1.6 mg/dL EXTERNAL LAB External Urine WBC 10-20 /HPF EXTERNAL LAB External Urine Nitrite negative EXTERNAL LAB External Urine Protein 30 mg/dL EXTERNAL LAB External Urine Blood trace EXTERNAL LAB External Estimated GFR 68.73 EXTERNAL LAB 04/02/2016 3:47 PM EDT Narrative EXTERNAL LAB - 04/07/2016 3:52 PM EDT [facility] Historical Provider LAB BLOOD ORDERABLES Final R esult EXTERNAL LAB * OTTR LAB RESULTS (MANUAL) (04/02/2016 2:22 PM EDT) [facility] External Tacrolimus Level 4.0 ng/mL EXTERNAL LAB 04/02/2016 2:22 PM EDT Narrative EXTERNAL LAB - 04/04/2016 2:23 PM EDT [facility] Historical Provider LAB BLOOD ORDERABLES Final R esult EXTERNAL LAB * OTTR LAB RESULTS (MANUAL) (03/13/2016 10:07 AM EDT) Pathologist [facility] External Estimated GFR 62.23 EXTERNAL LAB 03/13/2016 10:0 7 AM EDT Narrative EXTERNAL LAB - 03/13/2016 12:24 PM EDT Automated LAB Interface us Historical Provider LAB BLOOD ORDERABLES Final R esult EXTERNAL LAB * OTTR LAB RESULTS (MANUAL) (09/26/2015 5:02 PM EDT) External WBC 8 k/uL EXTERNAL LAB External Platelet Count (Plt) 221 k/uL EXTERNAL LAB External Hematocrit (Hct) 37 % EXTERNAL LAB External Hemoglobin (Hgb) 12.6 gm/dL EXTERNAL LAB External Albumin 3.7 g/dL EXTERNAL LAB External Magnesium (Mg) 1.6 mg/dL EXTERNAL LAB External BUN 12 mg/dL EXTERNAL LAB External Creatinine Blood 1.1 mg/dL EXTERNAL LAB External Sodium (Na) 141 mmol/L EXTERNAL LAB External Potassium (K) 4.2 mmol/L EXTERNAL LAB External Carbon Dioxide (CO2) 28 mmol/L EXTERNAL LAB External Chloride (Cl) 105 mmol/L EXTERNAL LAB External Calcium (Ca) 10 mg/dL EXTERNAL LAB External Phosphorus 3.7 mg/dL EXTERNAL LAB External Glucose 106 mg/dL EXTERNAL LAB External Urine Leukocyte Esterase Negative EXTERNAL LAB External Urine WBC none /HPF EXTERNAL LAB External Urine Glucose normal mg/dL EXTERNAL LAB External Urine Nitrite Negative EXTERNAL LAB External Urine Protein Negative mg/dL EXTERNAL LAB External Urine Blood Negative EXTERNAL LAB External Estimated GFR 61.99 EXTERNAL LAB External Tacrolimus Level 6.1 ng/mL EXTERNAL LAB 09/26/2015 5:02 PM EDT [facility] EXTERNAL LAB - 09/28/2015 4:14 PM EDT [facility] Historical Provider LAB BLOOD ORDERABLES Final R esult EXTERNAL LAB * OTTR LAB RESULTS (MANUAL) (09/14/2015 8:44 AM EST) External Tacrolimus Level 6.2 ng/mL EXTERNAL LAB External WBC 10.3 k/uL EXTERNAL LAB External Platelet Count (Plt) 260 k/uL EXTERNAL LAB External Hematocrit (Hct) 34.8 % EXTERNAL LAB External Hemoglobin (Hgb) 12.1 gm/dL EXTERNAL LAB External BUN 17 mg/dL EXTERNAL LAB External Creatinine Blood 1.2 mg/dL EXTERNAL LAB External Sodium (Na) 139 mmol/L EXTERNAL LAB External Potassium (K) 4 mmol/L EXTERNAL LAB External Carbon Dioxide (CO2) 25 mmol/L EXTERNAL LAB External Chloride (Cl) 103 mmol/L EXTERNAL LAB External Calcium (Ca) 9.7 mg/dL EXTERNAL LAB External Phosphorus 3.4 mg/dL EXTERNAL LAB External Glucose 196 mg/dL EXTERNAL LAB External Albumin 3.7 g/dL EXTERNAL LAB External Urine Glucose normal mg/dL EXTERNAL LAB External Urine Blood 50 EXTERNAL LAB External Urine Protein trace mg/dL EXTERNAL LAB External Urine Nitrite negative EXTERNAL LAB External Urine Leukocyte Esterase negative EXTERNAL LAB External Urine WBC none /HPF EXTERNAL LAB External Magnesium (Mg) 1.5 mg/dL EXTERNAL LAB External Estimated GFR 56.06 EXTERNAL LAB 09/14/2015 8:44 AM EST [facility] EXTERNAL LAB - 09/17/2015 5:00 PM EST [facility] us Historical Provider LAB BLOOD ORDERABLES Final [...] 08/18/2019 5:23 AM EDT Respiratory Rule-Out 06/24/2020 06/24/20202 021 5:24 AM EDT 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 COVID-19 Rule-Out 08/12/2021 08/12/2021 08/13/2021 1:52 AM EST COVID 19 (Confirmed) Comment:[facility] has contacted the patient regarding their positive COVID-19 test. Patient instructed that the local Health Dept. will be contacting them with a quarantine notice and to discuss contact tracing and should remain at home/isolated until notified. Patient was educated that if symptoms progress and they become short of air to proceed to the nearest ED. [facility] Manager Card: Shelley Manzo 08/12/2021 08/12/202109/02 5:23 AM EST COVID-19 Rule-Out 09/24/2021 09/24/2021 09/24/2021 6:17 PM EDT documented as of this encounter Care Teams Corrections Identification Technician Relationship Specialty Start Date End Date Jarvis Bennett MD [address] [place] [address] PCP - General 12/20/20 08/11/21 Octaviano Cabrera PA [address] [place] [address] PCP - General Internal Medicine 08/12/21 02/26/25 Terry Ag MD [address] [place] [address] Transplant Physician Transplant Surgery 12/02/20 Lee Ellis MD [address] [place] [address] Transplant Physician Transplant Surgery 12/02/20 Cici Wiley [id number] Surgical Navigator Transplant 12/02/20 Aleksandra Mensah RN [facility] [address] [place] [id number] Surgical Navigator Transplant Surgery 02/15/21 Josie Moseley [address] [place] [id number] Mail Handlers Supervisor 04/13/24 04/13/25 documented as of this encounter
--- OUTSIDE RECORDS SUMMARY | 2025-06-14 15:27 | XMS_ITS | Encounter Summary ---
Author Organization Healthcare Address [address] [facility] [place] [address] Care Team Providers Care Plumber Helper Name Role Phone Terry Ag MD Unavailable Lee Ellis MD Unavailable [phone] Cici Wiley Unavailable Unavailable Jarvis Bennett MD Primary Care Provider [phone] Aleksandra Mensah RN Unavailable Unavailable Octaviano Cabrera Primary Care Provider [phone] Josie Moseley Unavailable [phone] Encounter Details Date Type Department Care Team (Late st Contact Info) Description 04/24/2021 Lab Requisition [facility] [address] [place] [address] Janes Harrell MD [address] [facility] [address] [place] [address] Kidney transplant failure Social History [...] Description 09/14/2025 12:20 PM EST [facility] [address] [place] [address] Preeti Gomez MD [address] [place] [address] documented as of this encounter Procedures Procedure Name Priority Date/Time Associated Diagnosis Comments HLA ANTIBODY TESTING (LSA) Routine 04/22/2021 10:00 AM EDT Kidney transplant failure documented in this encounter Results * HLA Antibody Testing (LSA) (04/22/2021 10:00 AM EDT) Blood Venous blood specimen / Unknown 04/22/2021 10:00 AM EDT 04/24/2021 1:39 PM EDT us Janes Harrell MD LAB BLOOD ORDERABLES Final Res [facility] [address] documented in this encounter Visit Diagnoses Diagnosis Kidney transplant failure Complications of transplanted kidney documented in this encounter Additional Health Concerns Infection Onset Date Last Indicated Resolved Time 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 Patient instructed that the local Health Dept. will be contacting them with a quarantine notice and to discuss contact tracing and should remain at home/isolated until notified. Patient was educated that if symptoms progress and they become short of air to proceed to the nearest ED. IPA Production Controller: Shelley Manzo 08/12/2021 08/12/202109/02 5:23 AM EST COVID-19 Rule-Out 09/24/2021 09/24/2021 09/24/2021 6:17 PM EDT Assessment Noted Time A fall risk assessment has been complete d for the patient 12/20/2020 2:48 PM EDT documented as of this encounter Care Teams Plumber Helper Relationship Specialty Start Date End Date Jarvis Bennett MD [address] [place] [address] PCP - General 12/20/20 08/11/21 Octaviano Cabrera PA [address] [place] [id number] PCP - General Internal Medicine 08/12/21 02/26/25 Terry Ag MD [address] [place] [address] Transplant Physician Transplant Surgery 12/02/20 Lee Ellis MD [address] [place] [address] Transplant Physician Transplant Surgery 12/02/20 Cici Wiley [id number] Surgical Navigator Transplant 12/02/20 Aleksandra Mensah RN [facility] [address] [place] [id number] Surgical Navigator Transplant Surgery 02/15/21 Josie Msoeley [address] [place] [id number] Fingernail Sculptor 04/13/24 04/13/25 documented as of this encounter
== END 2025-06-14 23:59 | disposition home or self-care (01) ==
LOC: RAD 15:24
PROVIDERS: PCP Nurse Practitioner; Visit Provider Nurse Practitioner
DX: Z12.31 Encounter for screening mammogram for malignant neoplasm of breast (principal); R92.323 Mammographic fibroglandular density, bilateral breasts
CPT/HCPCS: 77063; 77067